=== PATIENT | female | born 1965 | race Caucasian/White ===

== ENCOUNTER 2016-04-02 16:20 | Emergency (ER) | payer BC, OTHER ==
[2016-04-02] MEDS ORDERED: IBUPROFEN 800 MG TAB As Ordered ONE (18:17)
--- NOTE | 2016-04-02 18:46 | REP ---
Lumbar spine five views: Comparison is 06/25/2015. Vertebral body heights and alignment are normal. There are no vertebral body compression deformities. Disc spaces are unremarkable. 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 There is no spondylolysis or spondylolisthesis. The pedicles, facets and sacroiliac articulations are unremarkable. Impression: Essentially negative lumbar spine. Signed by Delmer Gonzalez MD 04/02/2016 06:37 P
[2016-04-02] MEDS ORDERED: NORCO 5/325MG TABLET (BULK) As Ordered ONE (19:11)
[2016-04-02] MEDS ORDERED: METHOCARBAMOL 500 MG TAB As Ordered ONE (19:12)
--- NOTE | 2016-04-02 19:28 | EDDOCDS ---
Nurse's Notes [facility] Name: Pauline Guerra Age: 50 yrs Sex: Female : 1965 Arrival Date: 04/02/2016 Time: 16:20 Bed PR1 / Private MD: Sher - Complete Info On Cds Diagnosis: Strain of muscle, fascia and tendon of lower back Presentation: 04/02 16:28 Presenting complaint: Patient states: Shooting pain down both legs since this weekend. ck1 No known injury. Adult Sepsis Screening: The patient does not have new or worsening altered mentation. Patient's respiratory rate is less than 22. Systolic blood pressure is greater than 100. Patient has a qSOFA score of 0- Negative Sepsis Screen. Suicide/Homicide risk assessment- the patient denies having any suicidal and/or homicidal ideations and does not present with any other emotional, behavioral or mental health complaints. Status: Patient is not a senior administrative services officer or dependent. Transition of care: patient was not received from another setting of care. 16:28 Acuity: NAMITA Level 4 ck1 16:28 Method Of Arrival: Walkin/Carried/Asstd ck1 Triage Assessment: 16:30 General: Appears in no apparent distress, comfortable, Behavior is appropriate for age, ck1 cooperative. Pain: Location: right leg and left leg Pain currently is 9 out of 10 on a pain scale. HIV screening NA for this visit Offered previously. Respiratory: Respiratory effort is unlabored, Respiratory pattern is regular, symmetrical. Derm: Skin is intact, is healthy with good turgor, Skin is pink, warm & dry. Musculoskeletal: Circulation, motion, and sensation intact Range of motion intact in all extremities. 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 levothyroxine 175 mcg Oral tab 1 tab once daily - PMHx: Hypothyroidism; - PSHx: Cesearean Section; - Social history: Smoking status: Patient uses tobacco products, heavy tobacco smoker. No barriers to communication noted, The patient speaks fluent Armenian, Speaks appropriately for age. - Family history: Not pertinent. - : The pt / caregiver states he / she is not on anticoagulants. Home medication list is obtained from the patient. - Exposure Risk Screening:: None identified. Screenin:21 Screening information is obtained from the patient. Fall risk: No risks identified. mlb1 Assistance ADL's: requires no assistance with activities of daily living. Abuse/DV Screen: The patient / caregiver reports he/she is: not in a situation that causes fear, pain or injury. Nutritional screening: No deficits noted. Advance Directives: Currently, there is no health care proxy. home support is adequate. Assessment: 18:20 General: Appears in no apparent distress, comfortable, Behavior is appropriate for age, mlb1 cooperative. Pain: Location: left leg and right leg Pain currently is 8 out of 10 on a pain scale. Neurological: Level of Consciousness is awake, alert, obeys commands. Respiratory: Respiratory effort is unlabored, Respiratory pattern is regular, symmetrical. Derm: Skin is intact, is healthy with good turgor, Skin is pink, warm & dry. Musculoskeletal: Circulation, motion, and sensation intact Range of motion intact in all extremities. 19:23 General: Appears in no apparent distress, comfortable, Behavior is appropriate for age, cjh cooperative. General: reviewed discharge instructions with patient who denies new problems or complaints and declines offer of further assistance. Pain: Location: right leg and left leg Pain currently is 8 out of 10 on a pain scale. Vital Signs: 16:21 BP 162 / 87; Pulse 98; Resp 18 S; Temp 98.0(O); Pulse Ox 99% on R/A; Weight 81.65 kg gr2 (R); Height 5 ft. 1 in. (154.94 cm) (R); Pain 8/10; 19:23 BP 143 / 72; Pulse 85; Resp 16; Temp 98.6; Pulse Ox 96% ; Pain 9/10; cjh 16:21 Body Mass Index 34.01 (81.65 kg, 154.94 cm) gr2 Vitals: 16:21 Log In Time: April 02, 2016 at 16:21. gr2 ED Course: 16:21 Patient visited by Du Celaya. gr2 16:21 Other - Complete Info On Cds is Private Physician. gr2 16:21 Patient moved to Waiting gr2 16:22 Patient visited by Du Celaya. gr2 16:22 Patient moved to Pre RCE gr2 16:29 Triage Initiated ck1 16:58 Patient moved to Triage 1 ck1 17:12 Fabio Kline PA is PHCP. mo1 17:13 Kd Wilson MD is Attending Physician. mo1 18:04 Patient visited by Rachana Vaughan,BENNY. ck1 18:12 Patient visited by Fabio Kline PA. mo1 18:20 Patient visited by Fabio Reddy RN. mlb1 18:20 No IV's were initiated during this patient's visit. No procedures done that require mlb1 assistance. 18:21 The patient / caregiver is instructed regarding the plan of care and ED course. mlb1 18:21 Patient moved to TR1 mlb1 18:24 Patient name changed from Pauline\S\H\S\Charlie\S\ to Pauline\S\ \S\Charlie. EDTX 18:27 [facility] Payment Agreement was scanned into [employer] and attached to record. gjb 19:05 Patient moved to PR1 / 25 rs6 Administered Medications: 18:20 Drug: Ibuprofen 800 mg [ibuprofen 800 mg tablet (1 tabs)] Route: PO; [facility] 19:27 Follow up: Response: No Adverse Reaction; No significant change. [facility] 19:22 Drug: Methocarbamol 1 grams [methocarbamol 500 mg tablet (2 tabs)] Route: PO; [facility] 19:27 Follow up: Response: Med's dispensed home [facility] 19:23 Drug: HYDROcodone-acetaminophen 4 pack- 1 packets [hydrocodone 5 mg-acetaminophen 325 cjh mg tablet (1 tabs)] {Co-Signature: [email or web address] (Holly Crystal RN).} Route: PO; 19:27 Follow up: Response: Confirmed pt not driving.; Pt left department before re-evaluation [facility] is appropriate Order Results: There are currently no results for this order. Outcome: 19:03 Discharge ordered by Provider. mo1 19:23 Discharge Assessment: Patient awake, alert and oriented x 3. No cognitive and/or [facility] functional deficits noted. Patient verbalized understanding of disposition instructions. patient administered narcotics - yes. Pt provided with safe discharge. The following High Risk Discharge criteria are identified: None. Discharged to home ambulatory. Condition: good Condition: stable Condition: improved. Discharge instructions given to patient, Instructed on discharge instructions, follow up and referral plans. medication usage, no driving heavy equipment, Demonstrated understanding of instructions, medications, Pt was receptive of discharge instructions/ teaching. Prescriptions given X 2. No special radiology studies were completed. Property :Personal belongings accompany Pt. 19:28 Patient left the ED. [facility] Signatures: Dispatcher [employer] EDMS Fabio Reddy RN RN mlb1 Rachana VaughanRN RN ck1 Jolanta SchneiderRN RN [facility] Du Celaya gr2 Fabio Kline PA PA mo1 Schmitt, Rebecca, JORDAN HOTEL YARDPERSON rs6 Silvia Hassanb Holly Crystal RN jo3 MTDD
--- NOTE | 2016-04-02 19:28 | EDDOCDS ---
Physician Documentation [facility] Name: Pauline Guerra Age: 50 yrs Sex: Female : 1965 Arrival Date: 04/02/2016 Time: 16:20 Bed PR Private MD: Other - Complete Info On Cds Disposition: 04/02/16 19:03 Discharged to Home/Self Care. Impression: Strain of muscle, fascia and tendon of lower back. - Condition is Stable. - Discharge Instructions: Back Pain, Adult, Muscle Strain. - Prescriptions for Ibuprofen 800 mg Oral Tablet - take 1 tablet by ORAL route every 8 hours As needed take with food; 30 tablet. Robaxin 500 mg Oral Tablet - take 2 tablet by ORAL route every 6 hours As needed; 40 tablet. - Work Release Form - 3 day, Medication Reconciliation, Local Pharmacy Hours form. - Follow up: Private Physician; When: Call to arrange an appointment; Reason: Recheck today's complaints, Continuance of care. - Problem is new. - Symptoms are unchanged. Historical: - Allergies: PENICILLINS; - Home Meds: 1. levothyroxine 175 mcg Oral tab 1 tab once daily - PMHx: Hypothyroidism; - PSHx: Cesearean Section; - Social history: Smoking status: Patient uses tobacco products, heavy tobacco smoker. No barriers to communication noted, The patient speaks fluent Mexican, Speaks appropriately for age. - Family history: Not pertinent. - : The pt / caregiver states he / she is not on anticoagulants. Home medication list is obtained from the patient. - Exposure Risk Screening:: None identified. 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 1 in. (154.94 cm) (R); Pain 8/10; 19:23 BP 143 / 72; Pulse 85; Resp 16; Temp 98.6; Pulse Ox 96% ; Pain 9/10; cjh 16:21 Body Mass Index 34.01 (81.65 kg, 154.94 cm) gr2 MDM: 18:12 Ibuprofen 800 mg PO once ordered. mo1 18:13 Spine. Lumbosacral, Complete Ordered. EDHI 18:27 [facility] Payment Agreement was scanned into [employer] and attached to record. [facility] 18: Financial registration complete. gj 19:04 HYDROcodone-acetaminophen 4 pack- 5 mg-325 mg 1 packets PO Per package directions; mo1 Dispense with patient. 1 po q4h prn for pain ordered. 19:04 Methocarbamol 1 grams PO once; please give to go home ordered. mo1 Administered Medications: 18:20 Drug: Ibuprofen 800 mg [ibuprofen 800 mg tablet (1 tabs)] Route: PO; ml 19:27 Follow up: Response: No Adverse Reaction; No significant change. [facility] 19:22 Drug: Methocarbamol 1 grams [methocarbamol 500 mg tablet (2 tabs)] Route: PO; [facility] 19:27 Follow up: Response: Med's dispensed home [facility] 19:23 Drug: HYDROcodone-acetaminophen 4 pack- 1 packets [hydrocodone 5 mg-acetaminophen 325 cjh mg tablet (1 tabs)] {Co-Signature: [email or web address] (Holly Crystal RN).} Route: PO; 19:27 Follow up: Response: Confirmed pt not driving.; Pt left department before re-evaluation [facility] is appropriate Signatures: Dispatcher [facility] Fabio Reddy RN RN mlb1 Rachana VaughanRN RN ck1 Jolanta Schneider RN RN [facility] Fabio Kline PA PA mo1 Silvia Hassan [facility] Holly verdin3 The chart was reviewed and I authenticate all verbal orders and agree with the evaluation and treatment provided.Attachments: 18:27 [facility] Payment Agreement [facility] MTDD
--- NOTE | 2016-04-04 20:28 | EDDOCDS ---
Physician Documentation [facility] Name: Pauline Guerra Age: 50 yrs Sex: Female : 1965 Arrival Date: 04/02/2016 Time: 16:20 Bed PR Private MD: Other - Complete Info On Cds Disposition: 04/02/16 19:03 Discharged to Home/Self Care. Impression: Strain of muscle, fascia and tendon of lower back. - Condition is Stable. - Discharge Instructions: Back Pain, Adult, Muscle Strain. - Prescriptions for Ibuprofen 800 mg Oral Tablet - take 1 tablet by ORAL route every 8 hours As needed take with food; 30 tablet. Robaxin 500 mg Oral Tablet - take 2 tablet by ORAL route every 6 hours As needed; 40 tablet. - Work Release Form - 3 day, Medication Reconciliation, Local Pharmacy Hours form. - Follow up: Private Physician; When: Call to arrange an appointment; Reason: Recheck today's complaints, Continuance of care. - Problem is new. - Symptoms are unchanged. Historical: - Allergies: PENICILLINS; - Home Meds: 1. levothyroxine 175 mcg Oral tab 1 tab once daily - PMHx: Hypothyroidism; - PSHx: Cesearean Section; - Social history: Smoking status: Patient uses tobacco products, heavy tobacco smoker. No barriers to communication noted, The patient speaks fluent Ukrainian, Speaks appropriately for age. - Family history: Not pertinent. - : The pt / caregiver states he / she is not on anticoagulants. Home medication list is obtained from the patient. - Exposure Risk Screening:: None identified. 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 1 in. (154.94 cm) (R); Pain 8/10; 19:23 BP 143 / 72; Pulse 85; Resp 16; Temp 98.6; Pulse Ox 96% ; Pain 9/10; cjh 16:21 Body Mass Index 34.01 (81.65 kg, 154.94 cm) gr2 MDM: 18:12 Ibuprofen 800 mg PO once ordered. mo1 18:13 Spine. Lumbosacral, Complete Ordered. EDVT 18:27 [facility] Payment Agreement was scanned into [employer] and attached to record. [facility] 18: Financial registration complete. gjb 19:04 HYDROcodone-acetaminophen 4 pack- 5 mg-325 mg 1 packets PO Per package directions; mo1 Dispense with patient. 1 po q4h prn for pain ordered. 19:04 Methocarbamol 1 grams PO once; please give to go home ordered. mo1 04/03 11:24 T-Sheet-- Draft Copy was scanned into [employer] and attached to record. gb Administered Medications: 04/02 18:20 Drug: Ibuprofen 800 mg [ibuprofen 800 mg tablet (1 tabs)] Route: PO; [facility] 19:27 Follow up: Response: No Adverse Reaction; No significant change. [facility] 19:22 Drug: Methocarbamol 1 grams [methocarbamol 500 mg tablet (2 tabs)] Route: PO; [facility] 19:27 Follow up: Response: Med's dispensed home [facility] 19:23 Drug: HYDROcodone-acetaminophen 4 pack- 1 packets [hydrocodone 5 mg-acetaminophen 325 cjh mg tablet (1 tabs)] {Co-Signature: [email or web address] (Holly Crystal RN).} Route: PO; 19:27 Follow up: Response: Confirmed pt not driving.; Pt left department before re-evaluation [facility] is appropriate Signatures: Dispatcher [employer] EDVT Trinidad Garcia, Reg Reg Fabio Reddy RN RN mlb1 Rachana VaughanRN RN ck1 Jolanta SchneiderRN RN [facility] Fabio Kline PA PA mo1 Silvia Hassan [facility] Holly Crystal RN jo3 The chart was reviewed and I authenticate all verbal orders and agree with the evaluation and treatment provided.Attachments: 18:27 [facility] Payment Agreement [facility] 04/03 11:24 T-Sheet-- Draft Copy Chart Complete MTDD
--- NOTE | 2016-04-04 20:28 | EDDOCDS ---
Physician Documentation [facility] Name: Pauline Guerra Age: 50 yrs Sex: Female : 1965 Arrival Date: 04/02/2016 Time: 16:20 Bed PR Private MD: Other - Complete Info On Cds Disposition: 04/02/16 19:03 Discharged to Home/Self Care. Impression: Strain of muscle, fascia and tendon of lower back. - Condition is Stable. - Discharge Instructions: Back Pain, Adult, Muscle Strain. - Prescriptions for Ibuprofen 800 mg Oral Tablet - take 1 tablet by ORAL route every 8 hours As needed take with food; 30 tablet. Robaxin 500 mg Oral Tablet - take 2 tablet by ORAL route every 6 hours As needed; 40 tablet. - Work Release Form - 3 day, Medication Reconciliation, Local Pharmacy Hours form. - Follow up: Private Physician; When: Call to arrange an appointment; Reason: Recheck today's complaints, Continuance of care. - Problem is new. - Symptoms are unchanged. Historical: - Allergies: PENICILLINS; - Home Meds: 1. levothyroxine 175 mcg Oral tab 1 tab once daily - PMHx: Hypothyroidism; - PSHx: Cesearean Section; - Social history: Smoking status: Patient uses tobacco products, heavy tobacco smoker. No barriers to communication noted, The patient speaks fluent Ecuadorean, Speaks appropriately for age. - Family history: Not pertinent. - : The pt / caregiver states he / she is not on anticoagulants. Home medication list is obtained from the patient. - Exposure Risk Screening:: None identified. 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 1 in. (154.94 cm) (R); Pain 8/10; 19:23 BP 143 / 72; Pulse 85; Resp 16; Temp 98.6; Pulse Ox 96% ; Pain 9/10; cjh 16:21 Body Mass Index 34.01 (81.65 kg, 154.94 cm) gr2 MDM: 18:12 Ibuprofen 800 mg PO once ordered. mo1 18:13 Spine. Lumbosacral, Complete Ordered. EDIL 18:27 [facility] Payment Agreement was scanned into [employer] and attached to record. [facility] 18: Financial registration complete. gjb 19:04 HYDROcodone-acetaminophen 4 pack- 5 mg-325 mg 1 packets PO Per package directions; mo1 Dispense with patient. 1 po q4h prn for pain ordered. 19:04 Methocarbamol 1 grams PO once; please give to go home ordered. mo1 04/03 11:24 T-Sheet-- Draft Copy was scanned into [employer] and attached to record. gb Administered Medications: 04/02 18:20 Drug: Ibuprofen 800 mg [ibuprofen 800 mg tablet (1 tabs)] Route: PO; [facility] 19:27 Follow up: Response: No Adverse Reaction; No significant change. [facility] 19:22 Drug: Methocarbamol 1 grams [methocarbamol 500 mg tablet (2 tabs)] Route: PO; [facility] 19:27 Follow up: Response: Med's dispensed home [facility] 19:23 Drug: HYDROcodone-acetaminophen 4 pack- 1 packets [hydrocodone 5 mg-acetaminophen 325 cjh mg tablet (1 tabs)] {Co-Signature: [email or web address] (Holly Crystal RN).} Route: PO; 19:27 Follow up: Response: Confirmed pt not driving.; Pt left department before re-evaluation [facility] is appropriate Signatures: Dispatcher [employer] EDIL Trinidad Garcia, Reg Reg Fabio Reddy RN RN mlb1 Rachana VaughanRN RN ck1 Jolanta SchneiderRN RN [facility] Fabio Kline PA PA mo1 Silvia Hassan [facility] Holly Crystal RN jo3 The chart was reviewed and I authenticate all verbal orders and agree with the evaluation and treatment provided.Attachments: 18:27 [facility] Payment Agreement [facility] 04/03 11:24 T-Sheet-- Draft Copy Chart Complete MTDD
--- NOTE | 2016-04-04 20:28 | EDDOCDS ---
Nurse's Notes [facility] Name: Pauline Guerra Age: 50 yrs Sex: Female : 1965 Arrival Date: 04/02/2016 Time: 16:20 Bed PR1 / Private MD: Sher - Complete Info On Cds Diagnosis: Strain of muscle, fascia and tendon of lower back Presentation: 04/02 16:28 Presenting complaint: Patient states: Shooting pain down both legs since this weekend. ck1 No known injury. Adult Sepsis Screening: The patient does not have new or worsening altered mentation. Patient's respiratory rate is less than 22. Systolic blood pressure is greater than 100. Patient has a qSOFA score of 0- Negative Sepsis Screen. Suicide/Homicide risk assessment- the patient denies having any suicidal and/or homicidal ideations and does not present with any other emotional, behavioral or mental health complaints. Status: Patient is not a produce service team member or dependent. Transition of care: patient was not received from another setting of care. 16:28 Acuity: NAMITA Level 4 ck1 16:28 Method Of Arrival: Walkin/Carried/Asstd ck1 Triage Assessment: 16:30 General: Appears in no apparent distress, comfortable, Behavior is appropriate for age, ck1 cooperative. Pain: Location: right leg and left leg Pain currently is 9 out of 10 on a pain scale. HIV screening NA for this visit Offered previously. Respiratory: Respiratory effort is unlabored, Respiratory pattern is regular, symmetrical. Derm: Skin is intact, is healthy with good turgor, Skin is pink, warm & dry. Musculoskeletal: Circulation, motion, and sensation intact Range of motion intact in all extremities. INVESTMENT REPRESENTATIVE: 16:30 LMP N/A - Post-menopause ck1 Historical: - Allergies: PENICILLINS; - Home Meds: 1. levothyroxine 175 mcg Oral tab 1 tab once daily - PMHx: Hypothyroidism; - PSHx: Cesearean Section; - Social history: Smoking status: Patient uses tobacco products, heavy tobacco smoker. No barriers to communication noted, The patient speaks fluent Estonian, Speaks appropriately for age. - Family history: Not pertinent. - : The pt / caregiver states he / she is not on anticoagulants. Home medication list is obtained from the patient. - Exposure Risk Screening:: None identified. Screenin:21 Screening information is obtained from the patient. Fall risk: No risks identified. mlb1 Assistance ADL's: requires no assistance with activities of daily living. Abuse/DV Screen: The patient / caregiver reports he/she is: not in a situation that causes fear, pain or injury. Nutritional screening: No deficits noted. Advance Directives: Currently, there is no health care proxy. home support is adequate. Assessment: 18:20 General: Appears in no apparent distress, comfortable, Behavior is appropriate for age, mlb1 cooperative. Pain: Location: left leg and right leg Pain currently is 8 out of 10 on a pain scale. Neurological: Level of Consciousness is awake, alert, obeys commands. Respiratory: Respiratory effort is unlabored, Respiratory pattern is regular, symmetrical. Derm: Skin is intact, is healthy with good turgor, Skin is pink, warm & dry. Musculoskeletal: Circulation, motion, and sensation intact Range of motion intact in all extremities. 19:23 General: Appears in no apparent distress, comfortable, Behavior is appropriate for age, cjh cooperative. General: reviewed discharge instructions with patient who denies new problems or complaints and declines offer of further assistance. Pain: Location: right leg and left leg Pain currently is 8 out of 10 on a pain scale. Vital Signs: 16:21 BP 162 / 87; Pulse 98; Resp 18 S; Temp 98.0(O); Pulse Ox 99% on R/A; Weight 81.65 kg gr2 (R); Height 5 ft. 1 in. (154.94 cm) (R); Pain 8/10; 19:23 BP 143 / 72; Pulse 85; Resp 16; Temp 98.6; Pulse Ox 96% ; Pain 9/10; cjh 16:21 Body Mass Index 34.01 (81.65 kg, 154.94 cm) gr2 Vitals: 16:21 Log In Time: April 02, 2016 at 16:21. gr2 ED Course: 16:21 Patient visited by Du Celaya. gr2 16:21 Other - Complete Info On Cds is Private Physician. gr2 16:21 Patient moved to Waiting gr2 16:22 Patient visited by Du Celaya. gr2 16:22 Patient moved to Pre RCE gr2 16:29 Triage Initiated ck1 16:58 Patient moved to Triage 1 ck1 17:12 Fabio Kline PA is PHCP. mo1 17:13 Kd Wilson MD is Attending Physician. mo1 18:04 Patient visited by Rachana Vaughan,BENNY. ck1 18:12 Patient visited by Fabio Kline PA. mo1 18:20 Patient visited by Fabio Reddy, BENNY. mlb1 18:20 No IV's were initiated during this patient's visit. No procedures done that require mlb1 assistance. 18:21 The patient / caregiver is instructed regarding the plan of care and ED course. mlb1 18:21 Patient moved to TR1 mlb1 18:24 Patient name changed from Pauline\S\H\S\Charlie\S\ to Pauline\S\ \S\Charlie. EDMS 18:27 [facility] [place] Payment Agreement was scanned into [employer] and attached to record. gjb 19:05 Patient moved to PR1 / rs6 19:42 Spine. Lumbosacral, Complete Returned. EDMS 04/03 11:24 T-Sheet-- Draft Copy was scanned into [employer] and attached to record. gb Administered Medications: 04/02 18:20 Drug: Ibuprofen 800 mg [ibuprofen 800 mg tablet (1 tabs)] Route: PO; [facility] 19:27 Follow up: Response: No Adverse Reaction; No significant change. [facility] 19:22 Drug: Methocarbamol 1 grams [methocarbamol 500 mg tablet (2 tabs)] Route: PO; [facility] 19:27 Follow up: Response: Med's dispensed home [facility] 19:23 Drug: HYDROcodone-acetaminophen 4 pack- 1 packets [hydrocodone 5 mg-acetaminophen 325 cjh mg tablet (1 tabs)] {Co-Signature: jo3 (Holly Crystal RN).} Route: PO; 19:27 Follow up: Response: Confirmed pt not driving.; Pt left department before re-evaluation [facility] is appropriate Order Results: Radiology Order: Spine. Lumbosacral, Complete Test: Spine. Lumbosacral, Complete REASON FOR EXAMINATION: Trauma; Lumbar spine five views:; ; Comparison is 06/25/2015.; ; Vertebral body heights and alignment are normal. 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 mo1 19:23 Discharge Assessment: Patient awake, alert and oriented x 3. No cognitive and/or [facility] functional deficits noted. Patient verbalized understanding of disposition instructions. patient administered narcotics - yes. Pt provided with safe discharge. The following High Risk Discharge criteria are identified: None. Discharged to home ambulatory. Condition: good Condition: stable Condition: improved. Discharge instructions given to patient, Instructed on discharge instructions, follow up and referral plans. medication usage, no driving heavy equipment, Demonstrated understanding of instructions, medications, Pt was receptive of discharge instructions/ teaching. Prescriptions given X 2. No special radiology studies were completed. Property :Personal belongings accompany Pt. 19:28 Patient left the ED. [facility] Signatures: Dispatcher [employer] EDMS Trinidad Garcia, Reg Reg gb Fabio Reddy, RN RN mlb1 Rachana VaughanRN RN ck1 Jolanta SchneiderRN RN [facility] Du Celaya gr2 Fabio Kline PA PA mo1 Tonya Boyd, PRODUCT SUPPORT TECHNICIAN PRODUCT SUPPORT TECHNICIAN rs6 Silvia Hassan RN jo3 Chart Complete MTDD
== END 2016-04-02 19:28 | disposition home or self-care (01) ==
LOC: M ED 16:20
DX: M54.16 Radiculopathy, lumbar region (principal); S39.012A Strain of muscle, fascia and tendon of lower back, initial encounter; X58.XXXA Exposure to other specified factors, initial encounter; Y92.89 Other specified places as the place of occurrence of the external cause; Y93.89 Activity, other specified; Y99.8 Other external cause status; E03.9 Hypothyroidism, unspecified; F17.210 Nicotine dependence, cigarettes, uncomplicated; Z79.899 Other long term (current) drug therapy; Z88.0 Allergy status to penicillin

== ENCOUNTER → 2016-04-28 | Outpatient (CLI) | payer BC ==
[2016-04-28 16:59] LABS: BASO # 0.1 K/mm3 (0.0-0.2); BASO % 0.9 % (0.0-1.0); EOS # 0.2 K/mm3 (0.0-0.50); EOS % 1.8 % (0.0-3.0); LARGE UNSTAINED CELL # 0.3 K/mm3 (0.0-0.4); LYMPH # 2.1 K/mm3 (1.5-4.5); MEAN CORPUSCULAR HEMOGLOBIN 31.6 pg (27.0-33.0); MEAN CORPUSCULAR HGB CONC 33.7 g/dl (32.0-36.5); MEAN CORPUSCULAR VOLUME 93.7 fl (80.0-96.0); MONO % 9.3 % (0.0-5.0); NEUTROPHILS # 6.8 K/mm3 (1.8-7.7); PLATELET COUNT, AUTOMATED 373 k/mm3 (150-450); RED CELL DISTRIBUTION WIDTH 12.4 % (11.5-14.5); WHITE BLOOD COUNT 10.5 K/mm3 (4.0-10.0)
[2016-04-28 17:25] LABS: FOLATE 9.9 NG/ML (>5.4); VITAMIN B12 LEVEL 555 PG/ML (247-911)
[2016-04-28 18:13] LABS: ALBUMIN/GLOBULIN RATIO 1.18 (1.00-1.93); ALKALINE PHOSPHATASE 98 U/L (45-117); ALT/SGPT 27 U/L (12-78); ANION GAP 9 MEQ/L (8-16); AST/SGOT 25 U/L (15-37); BILIRUBIN,TOTAL 0.2 MG/DL (0.2-1.0); BLOOD UREA NITROGEN 13 MG/DL (7-18); CALCIUM LEVEL 8.8 MG/DL (8.5-10.1); CARBON DIOXIDE LEVEL 26 MEQ/L (21-32); CHLORIDE LEVEL 105 MEQ/L (98-107); GLOMERULAR FILTRATION RATE > 60.0 (>51); GLUCOSE, FASTING 122 MG/DL (70-105); POTASSIUM SERUM 3.9 MEQ/L (3.5-5.1); SODIUM LEVEL 140 MEQ/L (136-145); TOTAL PROTEIN 7.4 GM/DL (6.4-8.2)
[2016-04-28 20:20] LABS: ERYTHROCYTE SEDIMENTATION RATE 17 mm/hr (0-30)
[2016-04-29 11:22] LABS: ALBUMIN % 56.8 % (55.8-66.1); GAMMA GLOBULIN % 14.3 % (11.1-18.8)
[2016-05-02 08:09] LABS: VITAMIN E LEVEL 7.4 mg/L (5.3-16.8)
== END ==
LOC: M WUC 13:35
PROVIDERS: ATTEND Psychiatry & Neurology Neurology
DX: G62.9 Polyneuropathy, unspecified (principal)

== ENCOUNTER → 2016-05-03 | Outpatient (CLI) | payer BC ==
[2016-05-03 17:57] LABS: BASO # 0.1 K/mm3 (0.0-0.2); EOS # 0.4 K/mm3 (0.0-0.50); EOS % 3.8 % (0.0-3.0); LARGE UNSTAINED CELL # 0.2 K/mm3 (0.0-0.4); LARGE UNSTAINED CELL % 2.5 % (0.0-4.0); LYMPH # 2.5 K/mm3 (1.5-4.5); LYMPH % 24.4 % (24.0-44.0); MEAN CORPUSCULAR HEMOGLOBIN 31.7 pg (27.0-33.0); MEAN CORPUSCULAR HGB CONC 33.1 g/dl (32.0-36.5); MEAN CORPUSCULAR VOLUME 95.9 fl (80.0-96.0); MONO # 0.9 K/mm3 (0.0-0.8); MONO % 9.5 % (0.0-5.0); NEUTROPHILS # 5.6 K/mm3 (1.8-7.7); NEUTROPHILS % 58.7 % (36.0-66.0); PLATELET COUNT, AUTOMATED 370 k/mm3 (150-450); RED CELL DISTRIBUTION WIDTH 12.7 % (11.5-14.5); WHITE BLOOD COUNT 9.5 K/mm3 (4.0-10.0)
[2016-05-03 18:19] LABS: ALBUMIN 4.1 GM/DL (3.2-5.2); ALBUMIN/GLOBULIN RATIO 1.11 (1.00-1.93); ALKALINE PHOSPHATASE 89 U/L (45-117); ALT/SGPT 26 U/L (12-78); ANION GAP 12 MEQ/L (8-16); AST/SGOT 22 U/L (15-37); BILIRUBIN,TOTAL 0.5 MG/DL (0.2-1.0); BLOOD UREA NITROGEN 14 MG/DL (7-18); CARBON DIOXIDE LEVEL 24 MEQ/L (21-32); CHLORIDE LEVEL 107 MEQ/L (98-107); CHOLESTEROL LEVEL 240 MG/DL (<200); CREATININE FOR GFR 0.85 MG/DL (0.55-1.02); GLOMERULAR FILTRATION RATE > 60.0 (>51); GLUCOSE, FASTING 107 MG/DL (70-105); SODIUM LEVEL 143 MEQ/L (136-145); TOTAL PROTEIN 7.8 GM/DL (6.4-8.2); TRIGLYCERIDES LEVEL 204 MG/DL (<150)
== END ==
LOC: M WUC 11:41
PROVIDERS: ATTEND Physician Assistant Medical
DX: E78.2 Mixed hyperlipidemia (principal); E89.0 Postprocedural hypothyroidism; E55.9 Vitamin D deficiency, unspecified; E66.01 Morbid (severe) obesity due to excess calories

== ENCOUNTER → 2016-06-12 | Outpatient (CLI) | payer BC ==
--- NOTE | 2016-06-12 18:24 | REP ---
Clinical: Hip pain. Technique: Neutral and frog lateral views of the left hip. Findings: Moderate arthritic degenerative changes include increased sclerosis to the acetabulum with marginal spurring and associated joint space narrowing. There is subtle spurring suggested along the anteroinferior margin of the femoral head as well. There is no evidence for acute fracture or dislocation. Impression: Moderate arthritic degenerative changes. Signed by Jax Montoya MD 06/12/2016 06:17 P
== END ==
LOC: M WUC 17:35
PROVIDERS: ATTEND Psychiatry & Neurology Neurology
DX: M16.11 Unilateral primary osteoarthritis, right hip (principal)

== ENCOUNTER → 2016-07-08 | Outpatient (CLI) | payer BC ==
--- NOTE | 2016-07-18 00:11 | ECWPNPC ---
PATIENT NAME: NETTA MARC : 1965 GENDER: FEMALE VISIT DATE: 07/08/2016 DISCHARGE DATE: 07/08/16 1624 VISIT LOCKED DATE TIME: PHYSICIAN: MOHINI TANNER RESOURCE: MOHINI TANNER REASON FOR APPOINTMENT 1. HIP/LEG HISTORY OF PRESENT ILLNESS NEW PATIENT CONSULT: 51 Y/O FEMALE HERE PER REFERRAL OF CHACHO GALLARDO PA-C TO EVALUATE PERSISTENT RIGHT KNEE PAIN AND LOW BACK PAIN.PAIN BEGAN 2 YEARS AGO AFTER RIGHT KNEE OA AUGUST 2014.HAS TRIALED PT,INJECTIONS INTO RIGHT KNEE WITHOUT IMPROVEMENT.LEFT LEG PAIN BEGAN IN JANUARY 2016.RATING PAIN VAS 7/10..PAIN IS DESCRIBED CONSTANT THROBBING,ACHING AND SORENESS .PAIN IS AGGREVATED BY PROLONGED WALKING OR SITTING.RELIEVED SOMEWHAT AT REST AND IBUPROFEN.PAIN IS LOWER EXTREMITIES AND IS DESCRIBED CONSTANT ACHING AND THROBBING.FINDS IT DIFFICULT TO DO HER JOB.DENIES BOWELOR BLADDER INCONTINENCE.NO RECENT FEVER ,ILLNESS OR WEIGHT LOSS. WHEN DID YOUR PAIN FIRST START? . BRIEFLY DESCRIBE HOW YOUR PAIN STARTED? . HOW DOES YOUR PAIN CHANGE WITH TIME? . DOES YOUR PAIN AWAKEN YOU FROM SLEEP? . HOW MANY HOURS OF SLEEP DO YOU NORMALLY GET? . ANY DIAGNOSTIC TESTING? . FACILITY WHERE TESTS WERE DONE? ____. PAIN TREATMENT TREATMENT YES CANCER HAVE YOU EVER HAD ANY TYPE OF CANCER?NO NO. PAIN SCREENING: PATIENT HAS A COMPLAINT OF ACUTE OR CHRONIC PAIN :YES FALL RISK SCREENING: SCREENING :NO FALLS IN THE PAST YEAR NAVARRETE INVENTORY: QUESTIONNAIRE ASSESSEDTBD SCORE VALUE CALCULATED TBD CURRENT MEDICATIONS TAKING TYLENOL 650 MG TABLET 2 TABLET NEEDED ORALLY EVERY 6 HRS TAKING GABAPENTIN 300 MG CAPSULE 1 CAPSULE ORALLY THREE TIMES A DAY TAKING LEVOTHYROXINE SODIUM 200 MCG TABLET 1 TAB ORALLY DAILY TAKING IBUPROFEN 800 MG TABLET 1 TABLET ORALLY THREE TIMES A DAY NOT-TAKING MELOXICAM 15 MG TABLET 1 TABLET ORALLY ONCE A DAY, NOTES: NEEDED NOT-TAKING VICODIN 5-300 MG TABLET 1 TABLET NEEDED ORALLY EVERY 6 HRS NOT-TAKING ROBAXIN 500 MG TABLET 2 TABLETS ORALLY EVERY 6 HRS MEDICATION LIST REVIEWED AND RECONCILED WITH THE PATIENT PAST MEDICAL HISTORY GRAVE'S DISEASE WITH IODINE THERAPY, [address] URIOSTEGUI G4, 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11-20 HOW OFTEN DO YOU SMOKE CIGARETTES?EVERY DAY PATIENT COUNSELED ON THE DANGERS OF TOBACCO USE AND URGED TO QUIT:07/08/2016 ARE YOU INTERESTED IN QUITTING?NOT READY TO QUIT COUNSELED THE PATIENT ON SMOKING EFFECTS, EDUCATION [id number]/25/2017 ALCOHOL SCREENING POINTS0 INTERPRETATIONNEGATIVE CAFFEINE CAFFEINE USE?YES HOW OFTEN AND HOW MUCH? DAILY [place]AIN DEW 2-3 PER DAY DIET: REGULAR. FAITH [id number] NONDENOMINATIONAL LEARNING BARRIERS / SPECIAL NEEDS BARRIERS TO LEARNING?NO HEARING IMPAIRED?NO VISION IMPAIRED?YES :CORRECTIVE LENSES COGNITIVELY IMPAIRED?NO READINESS TO LEARN?YES LEARNING PREFERENCES?NO SPECIAL DEVICES?NO ENVIRONMENTAL MANAGEMENT SPECIALIST NEEDED?NO MISCELLANEOUS: NO FAITH BARRIERS . MEDICATION ABUSE NO FAITH BARRIERS . PAIN CLINIC PFS, CLERGY, PUBLIC HEALTH REFERRALS CLERGY REFERRAL NEEDED?NO WAS THE PROVIDER NOTIFIED OF ANY PERTINENT INFO?NO PFS REFERRAL NEEDED?NO PUBLIC HEALTH REFERRAL NEEDED?NO PATIENT: ____. HOSPITALIZATION/MAJOR DIAGNOSTIC PROCEDURE SEE ABOVE REVIEW OF SYSTEMS CONSTITUTIONAL: ANY CHANGE IN YOUR MEDICAL CONDITION? KNEE HAS NOT BEEN RIGHT SINCE HER SURGURY . CHILLS NO . FEVER NO . INFECTION: DO YOU HAVE NEW INFECTIONS? NO . DO YOU HAVE HISTORY OF MRSA? NO . MUSCULOSKELETAL: ANY NEW PATTERNS OF PAIN OR NUMBNESS? NO . SYTEMIC LUPUS NO . GASTROENTEROLOGY: ANY NEW CHANGE IN BOWEL CONTROL? YES, PILLS MAKE HER CONSTIPATED . BARRETTS ESOPHAGUS NO . CIRRHOSIS NO . HEPATITIS NO . LIVER FAILURE NO . ACID REFLUX NO . UNEXPLAINED WEIGHT LOSS NO . GENITOURINARY: ANY NEW CHANGE IN BLADDER CONTROL? NO . IS THERE A CHANCE YOU COULD BE ? NO . HEMATOLOGY/LYMPH: DO YOU TAKE ANY BLOOD THINNERS? (FOR EXAMPLE- COUMADIN, PLAVIX, AGGRENOX, PLATEL, PRADAXA, OR XARELTO) NO . WHEN WAS YOUR LAST DOSE? DATE: TIME: . LOW PLATELET COUNT NO . SICKLE CELL DISEASE NO . VON WILLIEBRANDS NO . FACTOR V LEIDEN NO . THALLASEMIA NO . ANEMIA NO . EASY BRUISING NO . NEUROLOGY: HAVE YOU FALLEN IN THE PAST 6 MONTHS? NO . ANY NEW EXTREMITY NUMBNESS OR WEAKNESS? NO . HEAD INJURY NO . DEMENTIA NO . CEREBRAL PALSY NO . MULTIPLE SCLEROSIS NO . DIZZINESS NO . HEADACHE NO . STROKES NO . VERTIGO NO . CARDIOLOGY: DO YOU HAVE A PACEMAKER OR DEFIBRILLATOR? NO . ANGINA NO . HEART ATTACK NO . HEART SURGERY NO . CONGESTIVE HEART FAILURE/FLUID OVERLOAD NO . CHEST PAIN NO . HIGH BLOOD PRESSURE NO . IRREGULAR HEART BEAT NO . RESPIRATORY: HAVE YOU BEEN SICK IN THE PAST WEEK? NO . FEVER NO . FLU LIKE SYMPTOMS? NO . CPAP NO . BYPAP NO . ASTHMA NO . EMPHYSEMA NO . CHRONIC LUNG DISEASES NO . SHORTNESS OF BREATH ON EXERTION NO . DO YOU USE ANY TYPE OF TOBACCO (SMOKE, SMOKELESS, CHEW)? NO . COUGH NO . SNORING NO . INTEGUMENTARY: DO YOU HAVE ANY RASHES OR OPEN SORES? NO . ALLERGIC/IMMUNO: ARE YOU ALLERGIC TO SHELLFISH OR IV DYE? NO . ANY NEW ALLERGIES? NO . PSYCHIATRIC: DO YOU HAVE THOUGHTS OF HURTING YOURSELF OR SOMEONE ELSE? NO . ARE YOU ABUSED, NEGLECTED, OR IN AN UNSAFE ENVIRONMENT? NO . ENDOCRINOLOGY: ARE YOU DIABETIC? NO . THYROID DISORDER NO . OTHER: DO YOU NEED ANY PRESCRIPTIONS? NO . IF YES, PLEASE LIST: ____ . ANY NEW PROBLEMS WITH YOUR MEDICATIONS? NO . WHEN DID YOU LAST EAT? ____ . WHEN DID YOU LAST DRINK? ____ . WHAT DID YOU LAST DRINK? ____ . NAME OF PERSON DRIVING YOU HOME? ____ . DO YOU HAVE ANY OTHER QUESTIONS OR CONCERNS NO . REVIEWED BY: PROVIDER: MOHINI CONKLIN . VITAL SIGNS WT 211 LBS, HT 60 IN, BMI 41.20 INDEX, BP 116/64 MM HG, HR 84 /MIN, RR 18 /MIN, TEMP 98 F,6 F, OXYGEN SAT % 94, SAFE IN ENV? (Y/N) YES, NA INITIALS KG 1500. EXAMINATION GENERAL EXAMINATION: GENERAL APPEARANCE:OBESE, UNCOMFORTABLE. PSYCHAFFECT NORMAL. LUNGS:LUNG VALDES ARE CLEAR TO AUSCULTATION BILATERALLY. GOOD MOVEMENT OF AIR. HEART:S1, S2 IN A REGULAR RATE AND RHYTHM. NO SIGNIFICANT MURMURS, RUBS OR GALLOPS NOTED. ABDOMEN:SOFT, NON-TENDER/NON-DISTENDED, BOWEL SOUNDS PRESENT. LUMBAR SPINE/LOWER BACK: INSPECTION:NORMAL CURVATURE OF SPINE. PALPATION:VERTEBRAL SPINE TENDERNESS, PARASPINAL TENDERNESS. MOTOR SYSTEM:5/5 BLE. SENSORY EXAM:NORMAL BILATERAL LE. ASSESSMENTS DISC DISPLACEMENT, LUMBAR - M51.26 (PRIMARY) LUMBAR RADICULITIS - M54.16 CHRONIC PRESCRIPTION OPIATE USE - Z79.891 TREATMENT DISC DISPLACEMENT, LUMBAR START NORCO TABLET, 5-325 MG, 1, ORALLY, EVERY 6 HRS PRN PAIN MDD4, 30 DAY(S), 45, REFILLS 0 START COLACE CAPSULE, 100 MG, 1-2, ORALLY, BID, 30 DAY(S), 120, REFILLS 0 CAUDAL/LUMBAR EPIDURALMOHNII TANNER 07/08/2016 4:11:56 PM > L3/4 LESI OTHERS NOTES: WHAT IS LUMBAR EPIDURAL INJECTION? MATERIAL WAS PRINTED,LUMBAR EPIDURAL INJECTION: YOUR PROCEDURE MATERIAL WAS PRINTED. PREVENTIVE MEDICINE DISCUSSED LE AND PREPROCEDURE CARE.DISCUSSED NARCOTIC AGREEMENT AND SIGNEDGAVE INFO ON COLACE AND NORCO. PROCEDURE CODES FA211 ESTABILISHED PATIENT [facility] FACILITY CHARGE DISPOSITION & COMMUNICATION FOLLOW UP 2WK POST (REASON: L3/4 LESI) ELECTRONICALLY SIGNED BY RUBIN NUNEZ ON 07/17/2016 AT 06:28 PM EDT DISCLAIMER : THIS IS A VISIT SUMMARY EXTRACTED FROM THE [employer] CHART. IT IS NOT A COPY OF THE [employer] PROGRESS NOTE. [facility]
== END ==
LOC: M PAIN 15:20
PROVIDERS: ATTEND Nurse Practitioner Family
DX: G89.29 Other chronic pain (principal); M51.26 Other intervertebral disc displacement, lumbar region; M54.16 Radiculopathy, lumbar region; E03.9 Hypothyroidism, unspecified; F17.210 Nicotine dependence, cigarettes, uncomplicated; E66.01 Morbid (severe) obesity due to excess calories; Z68.41 Body mass index [BMI] 40.0-44.9, adult; E78.2 Mixed hyperlipidemia; E55.9 Vitamin D deficiency, unspecified; I44.0 Atrioventricular block, first degree; Z88.0 Allergy status to penicillin; Z79.1 Long term (current) use of non-steroidal anti-inflammatories (NSAID); Z79.899 Other long term (current) drug therapy

== ENCOUNTER → 2016-08-22 | Outpatient (REF) | payer BC | LOC: M SFHCADAM 14:32 | PROVIDERS: ATTEND Physician Assistant Medical | DX: E89.0 Postprocedural hypothyroidism (principal) ==

== ENCOUNTER → 2016-09-11 | Outpatient (CLI) | payer BC ==
--- NOTE | 2016-09-26 00:56 | ECWPNPC ---
PATIENT NAME: NETTA MARC : 1965 GENDER: FEMALE VISIT DATE: 09/11/2016 DISCHARGE DATE: 09/11/16 1553 VISIT LOCKED DATE TIME: PHYSICIAN: MOHINI TANNER RESOURCE: MOHINI TANNER REASON FOR APPOINTMENT 1. LEGS HISTORY OF PRESENT ILLNESS HISTORY OF PRESENT ILLNESS: HERE FOR F/U AFTER INITIAL EVALUATION IN JUNE FOR CHRONIC LOW BACK PAIN AND BILATERAL LEG PAIN.HAS NOT HAD LESI PLANNED AT LAST VISIT SHE SAID SHE WASNT NOTIFIED OF INSURANCE APPROVAL FROM OUR OFFICE.USING HYDROCODONE 5/325 PRN FOR SEVERE PAIN AND IS FINDING IT HELPFUL.STATES SHE IS BETTER ABLE TO TOLERATE HER JOB AND IS HAVING IMPROVED SLEEP.DENIES SIDE EFFECTS.RATING PAIN VAS 8/10. PAIN THE PATIENT DESCRIBES THE PAIN... FALL RISK SCREENING: SCREENING :NO FALLS IN THE PAST YEAR CURRENT MEDICATIONS TAKING GABAPENTIN 300 MG CAPSULE 1 CAPSULE ORALLY THREE TIMES A DAY TAKING LEVOTHYROXINE SODIUM 200 MCG TABLET 1 TAB ORALLY DAILY TAKING IBUPROFEN 800 MG TABLET 1 TABLET ORALLY THREE TIMES A DAY TAKING COLACE 100 MG CAPSULE 1-2 ORALLY BID TAKING NORCO 5-325 MG TABLET 1 ORALLY EVERY 6 HRS PRN PAIN MDD4 NOT-TAKING CLINDAMYCIN HCL 300 MG CAPSULE 1 CAPSULE ORALLY EVERY 6 HRS NOT-TAKING TYLENOL 650 MG TABLET 2 TABLET NEEDED ORALLY EVERY 6 HRS NOT-TAKING MELOXICAM 15 MG TABLET 1 TABLET ORALLY ONCE A DAY, NOTES: NEEDED NOT-TAKING VICODIN 5-300 MG TABLET 1 TABLET NEEDED ORALLY EVERY 6 HRS NOT-TAKING ROBAXIN 500 MG TABLET 2 TABLETS ORALLY EVERY 6 HRS MEDICATION LIST REVIEWED AND RECONCILED WITH THE PATIENT PAST MEDICAL HISTORY GRAVE'S DISEASE WITH IODINE THERAPY, [address] URIOSTEGUI G4, 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, WOULD HAVE BEEN IN MID , UNSURE OF EXACTLY WHAT THIS WAS OR HOW IT WAS TREATED, [place] ALLERGIES PENICILLIN (FOR ALLERGIES USE ONLY): ANAPHYLAXIS: ALLERGY ANY CILLINS: ANAPHYLAXIS: ALLERGY SOCIAL HISTORY GENERAL: TOBACCO USE ARE YOU A:CURRENT SMOKER NOT INTERESTED IN QUITTING SMOKING TODAY HOW MANY CIGARETTES A DAY DO YOU SMOKE?11-20 HOW OFTEN DO YOU SMOKE CIGARETTES?EVERY DAY PATIENT COUNSELED ON THE DANGERS OF TOBACCO USE AND URGED TO QUIT:07/08/2016 ARE YOU INTERESTED IN QUITTING?NOT READY TO QUIT COUNSELED THE PATIENT ON SMOKING EFFECTS, EDUCATION [id number]/25/2017 LUNG CANCER SCREENING SMOKING STATUS:CURRENT SMOKER BMI CARE GOAL FOLLOW-UP ABOVE NORMAL BMI FOLLOW-UPDIETARY MANAGEMENT EDUCATION, GUIDANCE, AND COUNSELING ALCOHOL SCREENING DID YOU HAVE A DRINK CONTAINING ALCOHOL IN THE PAST YEAR?NO POINTS0 INTERPRETATIONNEGATIVE RECREATIONAL DRUG USE DRUG USE?NO CAFFEINE CAFFEINE USE?YES HOW OFTEN AND HOW MUCH? DAILY [place] DEW 2-3 PER DAY SEXUAL HX HAD SEX IN THE LAST 12 MONTHS (VAGINAL, ORAL, OR ANAL)?YES WITHMEN ONLY USE PROTECTION?YES HOW OFTEN?ALL OF THE TIME DIET: REGULAR. EPISCOPALIAN [id number] JUDAISM LANGUAGE LANGUAGES SPOKEN:SAL[place]OREAN EDUCATION LEVEL OF EDUCATION:FINISHED HIGH SCHOOL LEARNING BARRIERS / SPECIAL NEEDS BARRIERS TO LEARNING?NO HEARING IMPAIRED?NO VISION IMPAIRED?YES :CORRECTIVE LENSES COGNITIVELY IMPAIRED?NO READINESS TO LEARN?YES LEARNING PREFERENCES?NO SPECIAL DEVICES?NO RN ADVANCED NEEDED?NO MISCELLANEOUS: NO ORIENTAL ORTHODOX BARRIERS . MEDICATION ABUSE NO ORIENTAL ORTHODOX BARRIERS . PAIN CLINIC PFS, CLERGY, PUBLIC HEALTH REFERRALS PFS REFERRAL NEEDED?NO CLERGY REFERRAL NEEDED?NO PUBLIC HEALTH REFERRAL NEEDED?NO WAS THE PROVIDER NOTIFIED OF ANY PERTINENT INFO?NO HAS THE PATIENT BEEN EDUCATED REGARDING HIS/HER PLAN OF CARE?YES HAS THE PATIENT BEEN EDUCATED REGARDING PAIN, THE RISK FOR PAIN, THE IMPORTANCE OF EFFECTIVE PAIN MANAGEMENT, AND THE PAIN ASSESSMENT PROCESS?YES PATIENT: ____. REVIEW OF SYSTEMS REVIEWED BY: PROVIDER: MOHINI CONKLIN . CONSTITUTIONAL: ANY CHANGE IN YOUR MEDICAL CONDITION? NO . CHILLS NO . FEVER NO . INFECTION: DO YOU HAVE NEW INFECTIONS? NO . DO YOU HAVE HISTORY OF MRSA? NO . MUSCULOSKELETAL: ANY NEW PATTERNS OF PAIN OR NUMBNESS? NO . GASTROENTEROLOGY: ANY NEW CHANGE IN BOWEL CONTROL? NO . GENITOURINARY: ANY NEW CHANGE IN BLADDER CONTROL? NO . IS THERE A CHANCE YOU COULD BE ? NO . HEMATOLOGY/LYMPH: DO YOU TAKE ANY BLOOD THINNERS? (FOR EXAMPLE- COUMADIN, PLAVIX, AGGRENOX, PLATEL, PRADAXA, OR XARELTO) NO . WHEN WAS YOUR LAST DOSE? DATE: TIME: . NEUROLOGY: HAVE YOU FALLEN IN THE PAST 6 MONTHS? NO . ANY NEW EXTREMITY NUMBNESS OR WEAKNESS? NO . CARDIOLOGY: DO YOU HAVE A PACEMAKER OR DEFIBRILLATOR? NO . RESPIRATORY: HAVE YOU BEEN SICK IN THE PAST WEEK? NO . FEVER NO . FLU LIKE SYMPTOMS? NO . COUGH NO . INTEGUMENTARY: DO YOU HAVE ANY RASHES OR OPEN SORES? NO . ALLERGIC/IMMUNO: ARE YOU ALLERGIC TO SHELLFISH OR IV DYE? NO . ANY NEW ALLERGIES? NO . PSYCHIATRIC: DO YOU HAVE THOUGHTS OF HURTING YOURSELF OR SOMEONE ELSE? NO . ARE YOU ABUSED, NEGLECTED, OR IN AN UNSAFE ENVIRONMENT? NO . ENDOCRINOLOGY: ARE YOU DIABETIC? NO . OTHER: DO YOU NEED ANY PRESCRIPTIONS? YES . IF YES, PLEASE LIST: HYDROCODONE-ACETAMINOPHEN 5/325 MG . ANY NEW PROBLEMS WITH YOUR MEDICATIONS? NO . WHEN DID YOU LAST EAT? ____ . WHEN DID YOU LAST DRINK? ____ . WHAT DID YOU LAST DRINK? ____ . NAME OF PERSON DRIVING YOU HOME? ____ . DO YOU HAVE ANY OTHER QUESTIONS OR CONCERNS NO . VITAL SIGNS WT 214 LBS, HT 60 IN, BMI 41.79 INDEX, BP 138/78 MM HG, HR 84 /MIN, RR 18 /MIN, TEMP 97.8 F, OXYGEN SAT % 95%, NA INITIALS SC 15:17, REVIEWED BY: CS. EXAMINATION GENERAL EXAMINATION: GENERAL APPEARANCE:OBESE, UNCOMFORTABLE. PSYCHAFFECT NORMAL. LUNGS:LUNG VALDES ARE CLEAR TO AUSCULTATION BILATERALLY. GOOD MOVEMENT OF AIR. HEART:S1, S2 IN A REGULAR RATE AND RHYTHM. NO SIGNIFICANT MURMURS, RUBS OR GALLOPS NOTED. ABDOMEN:SOFT, NON-TENDER/NON-DISTENDED, BOWEL SOUNDS PRESENT. LUMBAR SPINE/LOWER BACK: INSPECTION:NORMAL CURVATURE OF SPINE. PALPATION:VERTEBRAL SPINE TENDERNESS, PARASPINAL TENDERNESS. MOTOR SYSTEM:5/5 BLE. SENSORY EXAM:NORMAL BILATERAL LE. ASSESSMENTS DISC DISPLACEMENT, LUMBAR - M51.26 (PRIMARY) CHRONIC PRESCRIPTION OPIATE USE - Z79.891 TREATMENT DISC DISPLACEMENT, LUMBAR CONTINUE NORCO TABLET, 5-325 MG, 1, ORALLY, EVERY 6 HRS PRN PAIN MDD4 NOTES: INTRALAMINAL L4/5 LESI,PATIENT EDUCATION WAS PRINTED,LUMBAR EPIDURAL INJECTION: RECOVERY AT HOME MATERIAL WAS PRINTED,WHAT IS LUMBAR EPIDURAL INJECTION? MATERIAL WAS PRINTED,LUMBAR EPIDURAL INJECTION: YOUR PROCEDURE MATERIAL WAS PRINTED. PREVENTIVE MEDICINE PAIN CLINIC TEACHING: PROCEDURE TEACHING EPIDURAL INFORMATION GIVEN. QUESTIONS ANSWERED AND PATIENT VERBALIZES UNDERSTANDING.. PROCEDURE CODES FA211 ESTABILISHED PATIENT [facility] CHARGE DISPOSITION & COMMUNICATION FOLLOW UP 2WK POST/NO AUTH NEEDED (REASON: INTRALAMINAL L4/5 LESI) ELECTRONICALLY SIGNED BY RUBIN NUNEZ ON 09/25/2016 AT 01:27 PM EDT DISCLAIMER : THIS IS A VISIT SUMMARY EXTRACTED FROM THE [employer] CHART. IT IS NOT A COPY OF THE [employer] PROGRESS NOTE. [employer]
== END ==
LOC: M PAIN 14:40
PROVIDERS: ATTEND Nurse Practitioner Family
DX: G89.29 Other chronic pain (principal); M51.26 Other intervertebral disc displacement, lumbar region; M79.604 Pain in right leg; M79.605 Pain in left leg; E03.9 Hypothyroidism, unspecified; F17.210 Nicotine dependence, cigarettes, uncomplicated; E66.01 Morbid (severe) obesity due to excess calories; E78.2 Mixed hyperlipidemia; E55.9 Vitamin D deficiency, unspecified; I44.0 Atrioventricular block, first degree; Z68.41 Body mass index [BMI] 40.0-44.9, adult; Z88.0 Allergy status to penicillin; Z88.1 Allergy status to other antibiotic agents; Z79.1 Long term (current) use of non-steroidal anti-inflammatories (NSAID); Z79.891 Long term (current) use of opiate analgesic; Z79.899 Other long term (current) drug therapy

== ENCOUNTER → 2016-10-02 | Outpatient (CLI) | payer BC ==
--- NOTE | 2016-10-14 01:37 | ECWPNPC ---
PATIENT NAME: NETTA MARC : 1965 GENDER: FEMALE VISIT DATE: 10/02/2016 DISCHARGE DATE: 10/02/16 1354 VISIT LOCKED DATE TIME: PHYSICIAN: LIDIA MACEDO RESOURCE: LIDIA MACEDO REASON FOR APPOINTMENT 1. LOW BACK PAIN HISTORY OF PRESENT ILLNESS HISTORY OF PRESENT ILLNESS: PAIN THE PATIENT DESCRIBES THE PAIN... 51 YEAR OLD FEMALE PATIENT WITH HISTORY OF CHRONIC LEG PAIN. PATIENT DESCRIBES THE PAIN ACHING, THROBBING, SORE, SHOOTING, AND HAVING IT ALL THE TIME WITH A PAIN SCORE OF 8/10. PATIENT IS CURRENTLY USING NORCO, IBUPROFEN AND GABAPENTIN TO AID IN PAIN RELIEF. PATIENT REPORTS THE MEDICATION KEEPING HER MOBILE AND FUNCTIONAL. PATIENT DENIES UNEXPLAINABLE WEIGHT LOSS, FEVER, CHILLS, NEW CHANGES ON HER URINARY OR BOWEL CONTROL. FALL RISK SCREENING: SCREENING :NO FALLS IN THE PAST YEAR CURRENT MEDICATIONS TAKING GABAPENTIN 300 MG CAPSULE 1 CAPSULE ORALLY THREE TIMES A DAY, NOTES: 10/02 599 TAKING LEVOTHYROXINE SODIUM 200 MCG TABLET 1 TAB ORALLY DAILY, NOTES: 10/02 599 TAKING COLACE 100 MG CAPSULE 1-2 ORALLY BID, NOTES: 10/02 599 TAKING NORCO 5-325 MG TABLET 1 ORALLY EVERY 6 HRS PRN PAIN MDD4, NOTES: 10/02 599 TAKING IBUPROFEN 800 MG TABLET 1 TABLET ORALLY THREE TIMES A DAY, NOTES: 10/02 599 NOT-TAKING CLINDAMYCIN HCL 300 MG CAPSULE 1 CAPSULE ORALLY EVERY 6 HRS NOT-TAKING TYLENOL 650 MG TABLET 2 TABLET NEEDED ORALLY EVERY 6 HRS NOT-TAKING MELOXICAM 15 MG TABLET 1 TABLET ORALLY ONCE A DAY, NOTES: NEEDED NOT-TAKING VICODIN 5-300 MG TABLET 1 TABLET NEEDED ORALLY EVERY 6 HRS NOT-TAKING ROBAXIN 500 MG TABLET 2 TABLETS ORALLY EVERY 6 HRS DISCONTINUED GABAPENTIN 300 MG CAPSULE TAKE ONE CAPSULE BY MOUTH THREE TIMES A DAY MEDICATION LIST REVIEWED AND RECONCILED WITH THE PATIENT PAST MEDICAL HISTORY GRAVE'S DISEASE WITH IODINE THERAPY, [address] URIOSTEGUI G4, 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, WOULD HAVE BEEN IN MID 90S, UNSURE OF EXACTLY WHAT THIS WAS OR HOW IT WAS TREATED, [place] ALLERGIES PENICILLIN (FOR ALLERGIES USE ONLY): ANAPHYLAXIS: ALLERGY ANY CILLINS: ANAPHYLAXIS: ALLERGY SOCIAL HISTORY GENERAL: TOBACCO USE ARE YOU A:CURRENT SMOKER NOT INTERESTED IN QUITTING SMOKING TODAY HOW MANY CIGARETTES A DAY DO YOU SMOKE?11-20 HOW SOON AFTER YOU WAKE UP DO YOU SMOKE YOUR FIRST CIGARETTE?6-30 MIN HOW OFTEN DO YOU SMOKE CIGARETTES?EVERY DAY PATIENT COUNSELED ON THE DANGERS OF TOBACCO USE AND URGED TO QUIT:10/02/2016 ARE YOU INTERESTED IN QUITTING?NOT READY TO QUIT COUNSELED THE PATIENT ON SMOKING EFFECTS, EDUCATION [id number]/20/2017 LUNG CANCER SCREENING SMOKING STATUS:CURRENT SMOKER BMI CARE GOAL FOLLOW-UP ABOVE NORMAL BMI FOLLOW-UPDIETARY MANAGEMENT EDUCATION, GUIDANCE, AND COUNSELING ALCOHOL SCREENING DID YOU HAVE A DRINK CONTAINING ALCOHOL IN THE PAST YEAR?NO POINTS0 INTERPRETATIONNEGATIVE RECREATIONAL DRUG USE DRUG USE?NO CAFFEINE CAFFEINE USE?YES HOW OFTEN AND HOW MUCH? DAILY MOUNTAIN DEW 2-3 PER DAY SEXUAL HX HAD SEX IN THE LAST 12 MONTHS (VAGINAL, ORAL, OR ANAL)?YES WITHMEN ONLY USE PROTECTION?YES HOW OFTEN?ALL OF THE TIME DIET: REGULAR. PENTECOSTALISM [id number] BAPTISM LANGUAGE LANGUAGES SPOKEN:[place] EDUCATION LEVEL OF EDUCATION:FINISHED HIGH SCHOOL LEARNING BARRIERS / SPECIAL NEEDS BARRIERS TO LEARNING?NO HEARING IMPAIRED?NO VISION IMPAIRED?YES COGNITIVELY IMPAIRED?NO :CORRECTIVE LENSES READINESS TO LEARN?YES LEARNING PREFERENCES?NO SPECIAL DEVICES?NO CASING FLUID TENDER NEEDED?NO MISCELLANEOUS: NO ORIENTAL ORTHODOX BARRIERS . MEDICATION ABUSE NO ORIENTAL ORTHODOX BARRIERS . PAIN CLINIC PFS, CLERGY, PUBLIC HEALTH REFERRALS PFS REFERRAL NEEDED?NO CLERGY REFERRAL NEEDED?NO PUBLIC HEALTH REFERRAL NEEDED?NO WAS THE PROVIDER NOTIFIED OF ANY PERTINENT INFO?NO HAS THE PATIENT BEEN EDUCATED REGARDING HIS/HER PLAN OF CARE?YES HAS THE PATIENT BEEN EDUCATED REGARDING PAIN, THE RISK FOR PAIN, THE IMPORTANCE OF EFFECTIVE PAIN MANAGEMENT, AND THE PAIN ASSESSMENT PROCESS?YES PATIENT: ____. REVIEW OF SYSTEMS REVIEWED BY: PROVIDER: LIDIA MACEDO MD . CONSTITUTIONAL: ANY CHANGE IN YOUR MEDICAL CONDITION? NO . CHILLS NO . FEVER NO . INFECTION: DO YOU HAVE NEW INFECTIONS? NO . DO YOU HAVE HISTORY OF MRSA? NO . MUSCULOSKELETAL: ANY NEW PATTERNS OF PAIN OR NUMBNESS? NO . GASTROENTEROLOGY: ANY NEW CHANGE IN BOWEL CONTROL? NO . GENITOURINARY: ANY NEW CHANGE IN BLADDER CONTROL? NO . IS THERE A CHANCE YOU COULD BE ? NO . HEMATOLOGY/LYMPH: DO YOU TAKE ANY BLOOD THINNERS? (FOR EXAMPLE- COUMADIN, PLAVIX, AGGRENOX, PLATEL, PRADAXA, OR XARELTO) NO . WHEN WAS YOUR LAST DOSE? DATE: TIME: . NEUROLOGY: HAVE YOU FALLEN IN THE PAST 6 MONTHS? NO . ANY NEW EXTREMITY NUMBNESS OR WEAKNESS? NO . CARDIOLOGY: DO YOU HAVE A PACEMAKER OR DEFIBRILLATOR? NO . RESPIRATORY: HAVE YOU BEEN SICK IN THE PAST WEEK? NO . FEVER NO . FLU LIKE SYMPTOMS? NO . COUGH NO . INTEGUMENTARY: DO YOU HAVE ANY RASHES OR OPEN SORES? NO . ALLERGIC/IMMUNO: ARE YOU ALLERGIC TO SHELLFISH OR IV DYE? NO . ANY NEW ALLERGIES? NO . PSYCHIATRIC: DO YOU HAVE THOUGHTS OF HURTING YOURSELF OR SOMEONE ELSE? NO . ARE YOU ABUSED, NEGLECTED, OR IN AN UNSAFE ENVIRONMENT? NO . ENDOCRINOLOGY: ARE YOU DIABETIC? NO . OTHER: DO YOU NEED ANY PRESCRIPTIONS? NO . IF YES, PLEASE LIST: ____ . ANY NEW PROBLEMS WITH YOUR MEDICATIONS? NO . WHEN DID YOU LAST EAT? 10/01 1900 . WHEN DID YOU LAST DRINK? 10/02 0600 . WHAT DID YOU LAST DRINK? WATER . NAME OF PERSON DRIVING YOU HOME? DAUGHTER-MINH . DO YOU HAVE ANY OTHER QUESTIONS OR CONCERNS NO . VITAL SIGNS WT 211.8 LBS, HT 60 IN, BMI 41.36 INDEX, BP 123/66 MM HG, HR 88 /MIN, RR 16 /MIN, TEMP 98.2 F, OXYGEN SAT % 95%, NA INITIALS SC 08:57, REVIEWED BY: RAJESH. EXAMINATION : PATIENT IS ALERT O X 3 AND COOPERATIVE. ANTALGIC GAIT. LIMPING FROM LEFT LEG. MRI OF THE LUMBAR SPINE DONE ON 05/10/16 SHOWS DEGENERATIVE DISC DISEASE AND DISC BULGES. ASSESSMENTS INTERVERTEBRAL DISC DISORDERS WITH RADICULOPATHY, LUMBAR REGION - M51.16 (PRIMARY) INTERVERTEBRAL DISC DISORDERS WITH RADICULOPATHY, LUMBOSACRAL REGION - M51.17 RIGHT KNEE NEUROPATHY RIGHT KNEE PAIN. TREATMENT INTERVERTEBRAL DISC DISORDERS WITH RADICULOPATHY, LUMBAR REGION NOTES: WE DICUSSED SEVERAL ISSUES WITH MRS. MARC'S PAIN MANAGEMENT CASE. AT THIS TIME THE PATIENT WILL CONTINUE WITH THE SAME MEDICATION REGIME BEFORE. I WOULD ALSO LIKE THE PATIENT TO START USING PENNSAID ON THE RIGHT KNEE. I DISCUSSED BRIEFLY WITH THE PATIENT THE OPTION OF DCS AND GAVE HER INFORMATION TO DO MORE RESEARCH. PATIENT WILL FOLLOW UP WITH VASCULAR DOCTOR ABOUT THE CIRCULATION ISSUE IN THE LEGS. PATIENT WILL RETURN TO THE CLINIC IN 4 WEEKS AND WILL CONSIDER DOING A HIP INJECTION. INSTRUCTIONS WERE GIVEN, QUESTIONS WERE ANSWERED, PATIENT REPORTS UNDERSTANDING AND AGREES WITH THE PLAN. I, PAZ HUDSON, DOCUMENTED THE ABOVE INFORMATION ACTING A SCRIBE FOR DR. MACEDO. I HAVE REVIEWED THE ABOVE DOCUMENT, WRITTEN BY PAZ SANCHEZ AND I VERIFY THAT IT IS ACCURATE. OTHERS START PENNSAID 1.5% DROPS, 1.5%, 10, 4 SIDES OF KNEES, FOUR TIMES DAILY NEEDED FOR PAIN, 30 DAY(S), 1, REFILLS 2 PROCEDURE CODES FA211 ESTABILISHED PATIENT [facility] FACILITY CHARGE G0827 DOC MEDS VERIFIED W/PT OR RE G7423 PAIN ASSESS POS TOOL F/U PLAN DOC DISPOSITION & COMMUNICATION FOLLOW UP 6 WEEKS ELECTRONICALLY SIGNED BY LIDIA MACEDO MD ON 10/13/2016 AT 11:30 AM EDT DISCLAIMER : THIS IS A VISIT SUMMARY EXTRACTED FROM THE [employer] CHART. IT IS NOT A COPY OF THE [employer] PROGRESS NOTE. SALEEM
== END ==
LOC: M PAIN 08:40
PROVIDERS: ATTEND Anesthesiology
DX: G89.29 Other chronic pain (principal); M51.16 Intervertebral disc disorders with radiculopathy, lumbar region; M51.17 Intervertebral disc disorders with radiculopathy, lumbosacral region; E03.9 Hypothyroidism, unspecified; F17.210 Nicotine dependence, cigarettes, uncomplicated; E66.9 Obesity, unspecified; Z68.41 Body mass index [BMI] 40.0-44.9, adult; E78.2 Mixed hyperlipidemia; E55.9 Vitamin D deficiency, unspecified; Z88.0 Allergy status to penicillin; Z79.891 Long term (current) use of opiate analgesic; Z79.1 Long term (current) use of non-steroidal anti-inflammatories (NSAID); Z79.899 Other long term (current) drug therapy

== ENCOUNTER → 2016-10-14 | Outpatient (CLI) | payer BC ==
--- NOTE | 2016-10-14 16:22 | REPMRS ---
Patient History The patient states she had a clinical breast exam in 10/30 Patient is postmenopausal. Family history of unknown cancer in father and breast cancer in maternal grandmother. Digital Woman Screen Mammo: October 14, 2016 - Exam #: [id number] Bilateral CC and MLO view(s) were taken. Technologist: Christiana Rain, Technologist Prior study comparison: December 28, 2013, bilateral digital mammo screening bilat, performed at [facility]. June 01, 2012, digital woman screen mammo performed at [facility]. FINDINGS: There are scattered fibroglandular densities. There has been no change in the appearance of the mammogram from the prior studies. There is a mild amount of residual fibroglandular tissue which is fairly symmetric. There is no interval development of dominant mass, architectural distortion, or clustered microcalcification suggestive of malignancy. ASSESSMENT: BI-RADS/ACR category 1 mammogram. Negative. Recommendation Routine screening mammogram in 1 year. A. Negative x-ray reports should not delay biopsy if a dominant or clinically suspicious mass is present. B. Four to eight percent of cancers are not identified by mammography. C. Adenosis and dense breast may obscure an underlying neoplasm.(for women over age 40). This mammogram was interpreted with the aid of an FDA-approved computer-aided dectection system. Electronically Signed By: Miguel Angel Reyna MD 10/14/16 [id number]
== END ==
LOC: M WHC 13:38
PROVIDERS: ATTEND Nurse Practitioner Family
DX: Z12.31 Encounter for screening mammogram for malignant neoplasm of breast (principal)

== ENCOUNTER → 2016-10-14 | Outpatient (REF) | payer BC | LOC: M SFHCWAGY 14:11 | PROVIDERS: ATTEND Nurse Practitioner Family | DX: Z12.4 Encounter for screening for malignant neoplasm of cervix (principal) ==

== ENCOUNTER → 2016-11-27 | Outpatient (REF) | payer OTHER | LOC: M SFHCADAM 15:47 | PROVIDERS: ATTEND Physician Assistant Medical | DX: E89.0 Postprocedural hypothyroidism (principal); E66.01 Morbid (severe) obesity due to excess calories; E55.9 Vitamin D deficiency, unspecified ==

== ENCOUNTER → 2016-12-02 | Outpatient (CLI) | payer OTHER ==
--- NOTE | 2016-12-17 00:48 | ECWPNPC ---
PATIENT NAME: NETTA MARC : 1965 GENDER: FEMALE VISIT DATE: 12/02/2016 DISCHARGE DATE: 12/02/16 1634 VISIT LOCKED DATE TIME: PHYSICIAN: MOHINI TANNER RESOURCE: MOHINI TANNER REASON FOR APPOINTMENT 1. R. KNEE HISTORY OF PRESENT ILLNESS HISTORY OF PRESENT ILLNESS: HERE FOR F/U FOR CHRONIC LOW BACK PAIN AND BILATERAL LEG PAIN.HAS NOT HAD LESI .DR MACEDO CHANGED APT. TO F/U.HE CONCERNED ABOUT KNEE SWELLING.HE CAME IN TO TALK WITH PATIENT.USING HYDROCODONE 5/325 PRN FOR SEVERE PAIN AND IS FINDING IT HELPFUL.STATES SHE IS BETTER ABLE TO TOLERATE HER JOB AND IS HAVING IMPROVED SLEEP.DENIES SIDE EFFECTS.RATING PAIN VAS 4/10. PAIN THE PATIENT DESCRIBES THE PAIN... THE PATIENT DESCRIBES THE PAIN... FALL RISK SCREENING: SCREENING :NO FALLS IN THE PAST YEAR CURRENT MEDICATIONS TAKING GABAPENTIN 300 MG CAPSULE 1 CAPSULE ORALLY THREE TIMES A DAY TAKING LEVOTHYROXINE SODIUM 200 MCG TABLET 1 TAB ORALLY DAILY TAKING COLACE 100 MG CAPSULE 1-2 ORALLY BID TAKING IBUPROFEN 800 MG TABLET 1 TABLET ORALLY THREE TIMES A DAY TAKING NORCO 5-325 MG TABLET 1 ORALLY EVERY 6 HRS PRN PAIN MDD4 TAKING DRISDOL 60506 UNIT CAPSULE 1 CAPSULE ORALLY ONCE WEEKLY TAKING PENNSAID 1.5% 1.5% DROPS 10 4 SIDES OF KNEES FOUR TIMES DAILY NEEDED FOR PAIN MEDICATION LIST REVIEWED AND RECONCILED WITH THE PATIENT PAST MEDICAL HISTORY GRAVE'S DISEASE WITH IODINE THERAPY, [address] URIOSTEGUI G4, 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, WOULD HAVE BEEN IN MID , UNSURE OF EXACTLY WHAT THIS WAS OR HOW IT WAS TREATED, [place] ALLERGIES PENICILLIN (FOR ALLERGIES USE ONLY): ANAPHYLAXIS: ALLERGY ANY CILLINS: ANAPHYLAXIS: ALLERGY SOCIAL HISTORY GENERAL: TOBACCO USE ARE YOU A:CURRENT SMOKER NOT INTERESTED IN QUITTING SMOKING TODAY HOW MANY CIGARETTES A DAY DO YOU SMOKE?11-20 HOW SOON AFTER YOU WAKE UP DO YOU SMOKE YOUR FIRST CIGARETTE?6-30 MIN HOW OFTEN DO YOU SMOKE CIGARETTES?EVERY DAY PATIENT COUNSELED ON THE DANGERS OF TOBACCO USE AND URGED TO QUIT:10/02/2016 ARE YOU INTERESTED IN QUITTING?NOT READY TO QUIT COUNSELED THE PATIENT ON SMOKING EFFECTS, EDUCATION [id number]/20/2017 LUNG CANCER SCREENING SMOKING STATUS:CURRENT SMOKER BMI CARE GOAL FOLLOW-UP ABOVE NORMAL BMI FOLLOW-UPDIETARY MANAGEMENT EDUCATION, GUIDANCE, AND COUNSELING ALCOHOL SCREENING DID YOU HAVE A DRINK CONTAINING ALCOHOL IN THE PAST YEAR?NO POINTS0 INTERPRETATIONNEGATIVE RECREATIONAL DRUG USE DRUG USE?NO CAFFEINE CAFFEINE USE?YES HOW OFTEN AND HOW MUCH? DAILY M[place]AIN DEW 2-3 PER DAY SEXUAL HX HAD SEX IN THE LAST 12 MONTHS (VAGINAL, ORAL, OR ANAL)?YES WITHMEN ONLY USE PROTECTION?YES HOW OFTEN?ALL OF THE TIME DIET: REGULAR. MARITAL STATUS: .. OTHERS AT HOME: DAUGHTER. PETS: 1 CAT. RASTAFARIAN [id number] LATTER DAY LANGUAGE LANGUAGES SPOKEN:IRISH EDUCATION LEVEL OF EDUCATION:FINISHED HIGH SCHOOL LEARNING BARRIERS / SPECIAL NEEDS CHANGE FROM LAST VISIT?NO BARRIERS TO LEARNING?NO HEARING IMPAIRED?NO VISION IMPAIRED?YES :CORRECTIVE LENSES COGNITIVELY IMPAIRED?NO READINESS TO LEARN?YES LEARNING PREFERENCES?NO LEARNING CAPABILITIES PRESENT?YES EMOTIONAL BARRIERS?NO SPECIAL DEVICES?NO LOAD DISPATCHER NEEDED?NO MISCELLANEOUS: NO RELIGION BARRIERS . MEDICATION ABUSE NO RELIGION BARRIERS . PAIN CLINIC PFS, CLERGY, PUBLIC HEALTH REFERRALS PFS REFERRAL NEEDED?NO CLERGY REFERRAL NEEDED?NO PUBLIC HEALTH REFERRAL NEEDED?NO WAS THE PROVIDER NOTIFIED OF ANY PERTINENT INFO?NO HAS THE PATIENT BEEN EDUCATED REGARDING HIS/HER PLAN OF CARE?YES HAS THE PATIENT BEEN EDUCATED REGARDING PAIN, THE RISK FOR PAIN, THE IMPORTANCE OF EFFECTIVE PAIN MANAGEMENT, AND THE PAIN ASSESSMENT PROCESS?YES PATIENT: ____. REVIEW OF SYSTEMS REVIEWED BY: PROVIDER: MOHINI CONKLIN . CONSTITUTIONAL: ANY CHANGE IN YOUR MEDICAL CONDITION? NO . CHILLS NO . FEVER NO . INFECTION: DO YOU HAVE NEW INFECTIONS? NO . DO YOU HAVE HISTORY OF MRSA? NO . MUSCULOSKELETAL: ANY NEW PATTERNS OF PAIN OR NUMBNESS? NO . GASTROENTEROLOGY: ANY NEW CHANGE IN BOWEL CONTROL? NO . GENITOURINARY: ANY NEW CHANGE IN BLADDER CONTROL? NO . IS THERE A CHANCE YOU COULD BE ? NO . HEMATOLOGY/LYMPH: DO YOU TAKE ANY BLOOD THINNERS? (FOR EXAMPLE- COUMADIN, PLAVIX, AGGRENOX, PLATEL, PRADAXA, OR XARELTO) NO . WHEN WAS YOUR LAST DOSE? DATE: TIME: . NEUROLOGY: HAVE YOU FALLEN IN THE PAST 6 MONTHS? NO . ANY NEW EXTREMITY NUMBNESS OR WEAKNESS? NO . CARDIOLOGY: DO YOU HAVE A PACEMAKER OR DEFIBRILLATOR? NO . RESPIRATORY: HAVE YOU BEEN SICK IN THE PAST WEEK? NO . FEVER NO . FLU LIKE SYMPTOMS? NO . COUGH NO . INTEGUMENTARY: DO YOU HAVE ANY RASHES OR OPEN SORES? NO . ALLERGIC/IMMUNO: ARE YOU ALLERGIC TO SHELLFISH OR IV DYE? NO . ANY NEW ALLERGIES? NO . PSYCHIATRIC: DO YOU HAVE THOUGHTS OF HURTING YOURSELF OR SOMEONE ELSE? NO . ARE YOU ABUSED, NEGLECTED, OR IN AN UNSAFE ENVIRONMENT? NO . ENDOCRINOLOGY: ARE YOU DIABETIC? NO . OTHER: DO YOU NEED ANY PRESCRIPTIONS? NO . IF YES, PLEASE LIST: ____ . ANY NEW PROBLEMS WITH YOUR MEDICATIONS? NO . WHEN DID YOU LAST EAT? ____ . WHEN DID YOU LAST DRINK? ____ . WHAT DID YOU LAST DRINK? ____ . NAME OF PERSON DRIVING YOU HOME? ____ . DO YOU HAVE ANY OTHER QUESTIONS OR CONCERNS NO . VITAL SIGNS WT 214.2 LBS, HT 60 IN, BMI 41.83 INDEX, BP 141/73 MM HG, HR 97 /MIN, RR 18 /MIN, TEMP 97.5 F, OXYGEN SAT % 97%, NA INITIALS SC 15:07, REVIEWED BY: NARENDRA. EXAMINATION GENERAL EXAMINATION: GENERAL APPEARANCE:OBESE, UNCOMFORTABLE. PSYCHAFFECT NORMAL. LUNGS:LUNG VALDES ARE CLEAR TO AUSCULTATION BILATERALLY. GOOD MOVEMENT OF AIR. HEART:S1, S2 IN A REGULAR RATE AND RHYTHM. NO SIGNIFICANT MURMURS, RUBS OR GALLOPS NOTED. ABDOMEN:SOFT, NON-TENDER/NON-DISTENDED, BOWEL SOUNDS PRESENT. LUMBAR SPINE/LOWER BACK: INSPECTION:NORMAL CURVATURE OF SPINE. PALPATION:VERTEBRAL SPINE TENDERNESS, PARASPINAL TENDERNESS. MOTOR SYSTEM:5/5 BLE. SENSORY EXAM:NORMAL BILATERAL LE. ASSESSMENTS DISC DISPLACEMENT, LUMBAR - M51.26 (PRIMARY) LUMBAR RADICULOPATHY - M54.16 TREATMENT DISC DISPLACEMENT, LUMBAR CONTINUE NORCO TABLET, 5-325 MG, 1, ORALLY, EVERY 6 HRS PRN PAIN MDD4 OTHERS NOTES: INTRALAMINAR L4/5 LESI. PREVENTIVE MEDICINE PAIN CLINIC TEACHING: PROCEDURE TEACHING PRE-PROCEDURE TEACHING DONE AND PATIENT VERBALIZES UNDERSTANDING.. PROCEDURE CODES FA211 ESTABILISHED PATIENT [facility] FACILITY CHARGE DISPOSITION & COMMUNICATION FOLLOW UP 2WK POST (REASON: INTRALAMINAR L4/5 LESI) ELECTRONICALLY SIGNED BY RUBIN NUNEZ ON 12/15/2016 AT 05:18 PM EDT DISCLAIMER : THIS IS A VISIT SUMMARY EXTRACTED FROM THE [employer] CHART. IT IS NOT A COPY OF THE [employer] PROGRESS NOTE. SALEEM
== END ==
LOC: M PAIN 15:00
PROVIDERS: ATTEND Nurse Practitioner Family
DX: G89.29 Other chronic pain (principal); M51.26 Other intervertebral disc displacement, lumbar region; M54.16 Radiculopathy, lumbar region; C03.9 Malignant neoplasm of gum, unspecified; F17.210 Nicotine dependence, cigarettes, uncomplicated; E66.01 Morbid (severe) obesity due to excess calories; Z68.41 Body mass index [BMI] 40.0-44.9, adult; E78.2 Mixed hyperlipidemia; E89.0 Postprocedural hypothyroidism; E55.9 Vitamin D deficiency, unspecified; Z88.0 Allergy status to penicillin; Z88.1 Allergy status to other antibiotic agents; Z79.1 Long term (current) use of non-steroidal anti-inflammatories (NSAID); Z79.891 Long term (current) use of opiate analgesic; Z79.899 Other long term (current) drug therapy

== ENCOUNTER → 2016-12-31 | Outpatient (CLI) | payer OTHER ==
[~2016-12-31] MED LIST: ISOVUE-M 300 61% 15ML VIAL (Q9967) As Ordered ONE; LIDOCAINE 1% SDV INJ 30 ML VIAL As Ordered ONE; diazePAM 5 MG TAB As Ordered ONE; methylPREDNISolone SUSP 40 MG/ML (DEPO-medrol) VIAL (J1030) As Ordered ONE; oxyCODONE 5MG TAB As Ordered ONE
--- NOTE | 2016-12-31 15:16 | REP ---
FLUOROSCOPIC GUIDED SPINAL INJECTION: The films were reviewed with Dr. Villeda. The patient has a history of low back pain. The portable C-arm was provided in the OR for Dr. Reynoso for fluoroscopic guidance. Two intraoperative fluoroscopic spot films were obtained using last image hold technology for needle placement verification for lumbar epidural injection. The films are on the PACs system and are available for review. 15 seconds of fluoroscopic time was utilized for this procedure. Reviewed by ROSETTA Sommers 12/31/2016 04:30 PEdited and Signed by Delmer Villeda MD 12/31/2016 05:05 P
--- NOTE | 2017-01-04 23:37 | ECWPNPC ---
PATIENT NAME: NETTA MARC : 1965 GENDER: FEMALE VISIT DATE: 12/31/2016 DISCHARGE DATE: 12/31/16 1123 VISIT LOCKED DATE TIME: PHYSICIAN: LIDIA MACEDO RESOURCE: LIDIA MACEDO REASON FOR APPOINTMENT 1. INTRALAMINAR L4/5 LESI HISTORY OF PRESENT ILLNESS HISTORY OF PRESENT ILLNESS: PAIN THE PATIENT DESCRIBES THE PAIN... FALL RISK SCREENING: SCREENING :NO FALLS IN THE PAST YEAR CURRENT MEDICATIONS TAKING GABAPENTIN 300 MG CAPSULE 1 CAPSULE ORALLY THREE TIMES A DAY, NOTES: 12/30/16 7PM TAKING LEVOTHYROXINE SODIUM 200 MCG TABLET 1 TAB ORALLY DAILY, NOTES: 12/30/16 6AM TAKING COLACE 100 MG CAPSULE 1-2 ORALLY BID, NOTES: AWHILE TAKING IBUPROFEN 800 MG TABLET 1 TABLET ORALLY THREE TIMES A DAY, NOTES: 12/30/16 7PM TAKING DRISDOL 40750 UNIT CAPSULE 1 CAPSULE ORALLY ONCE WEEKLY, NOTES: THURSDAY TAKING PENNSAID 1.5% 1.5% DROPS 10 4 SIDES OF KNEES FOUR TIMES DAILY NEEDED FOR PAIN, NOTES: NONE TAKING NORCO 5-325 MG TABLET 1 ORALLY 1 Q 4-6H PRN FOR SEVERE PAIN EPISODES ONLY MDD4 #45 TAB SHOULD LAST 30 DAYS, NOTES: 12/30/16 1630 NOT-TAKING MUCINEX 600 MG TABLET EXTENDED RELEASE 12 HOUR 1 TABLET NEEDED ORALLY EVERY 12 HRS MEDICATION LIST REVIEWED AND RECONCILED WITH THE PATIENT PAST MEDICAL HISTORY GRAVE'S DISEASE WITH IODINE THERAPY, [address] URIOSTEGUI G4, 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, WOULD HAVE BEEN IN MID , UNSURE OF EXACTLY WHAT THIS WAS OR HOW IT WAS TREATED, [place] ALLERGIES PENICILLIN (FOR ALLERGIES USE ONLY): ANAPHYLAXIS: ALLERGY ANY CILLINS: ANAPHYLAXIS: ALLERGY SURGICAL HISTORY C SECTION X2 TUBAL LIGATION 1999 D & C LATE 20S, OR EARLY 30S KNEE RIGHT TORN MENISCUS 2014 HOSPITALIZATION/MAJOR DIAGNOSTIC PROCEDURE SEE ABOVE REVIEW OF SYSTEMS REVIEWED BY: PROVIDER: . CONSTITUTIONAL: ANY CHANGE IN YOUR MEDICAL CONDITION? NO . CHILLS NO . FEVER NO . INFECTION: DO YOU HAVE NEW INFECTIONS? NO . DO YOU HAVE HISTORY OF MRSA? NO . MUSCULOSKELETAL: ANY NEW PATTERNS OF PAIN OR NUMBNESS? NO . GASTROENTEROLOGY: ANY NEW CHANGE IN BOWEL CONTROL? NO . GENITOURINARY: ANY NEW CHANGE IN BLADDER CONTROL? NO . IS THERE A CHANCE YOU COULD BE ? NO . HEMATOLOGY/LYMPH: DO YOU TAKE ANY BLOOD THINNERS? (FOR EXAMPLE- COUMADIN, PLAVIX, AGGRENOX, PLATEL, PRADAXA, OR XARELTO) NO . WHEN WAS YOUR LAST DOSE? DATE: TIME: . NEUROLOGY: HAVE YOU FALLEN IN THE PAST 6 MONTHS? NO . ANY NEW EXTREMITY NUMBNESS OR WEAKNESS? NO . CARDIOLOGY: DO YOU HAVE A PACEMAKER OR DEFIBRILLATOR? NO . RESPIRATORY: HAVE YOU BEEN SICK IN THE PAST WEEK? NO . FEVER NO . FLU LIKE SYMPTOMS? NO . COUGH NO . INTEGUMENTARY: DO YOU HAVE ANY RASHES OR OPEN SORES? NO . ALLERGIC/IMMUNO: ARE YOU ALLERGIC TO SHELLFISH OR IV DYE? NO . ANY NEW ALLERGIES? NO . PSYCHIATRIC: DO YOU HAVE THOUGHTS OF HURTING YOURSELF OR SOMEONE ELSE? NO . ARE YOU ABUSED, NEGLECTED, OR IN AN UNSAFE ENVIRONMENT? NO . ENDOCRINOLOGY: ARE YOU DIABETIC? NO . OTHER: DO YOU NEED ANY PRESCRIPTIONS? NO . IF YES, PLEASE LIST: ____ . ANY NEW PROBLEMS WITH YOUR MEDICATIONS? NO . WHEN DID YOU LAST EAT? TUE 8PM . WHEN DID YOU LAST DRINK? TUE 10PM . WHAT DID YOU LAST DRINK? [place] DEW . NAME OF PERSON DRIVING YOU HOME? SHAHNAZ . DO YOU HAVE ANY OTHER QUESTIONS OR CONCERNS NO . VITAL SIGNS WT 205 LBS, HT 60 IN, BMI 40.03 INDEX, BP 145/89 MM HG, HR 91 /MIN, RR 18 /MIN, TEMP 98.4 F, OXYGEN SAT % 95%, NA INITIALS SC 09:05, REVIEWED BY: NL. ASSESSMENTS INTERVERTEBRAL DISC DISORDER WITH RADICULOPATHY OF LUMBAR REGION - M51.16 (PRIMARY) PROCEDURES PRE PROCEDURE DIAGNOSIS LUMBAR DISC DISORDER WITH RADICULOPATHY POST PROCEDURE DIAGNOSIS LUMBAR DISC DISORDER WITH RADICULOPATHY PROCEDURE LUMBAR EPIDURAL STEROID INJECTION UNDER FLUOROSCOPIC GUIDANCE SURGEON DR. LIDIA MACEDO CONTRACTING SUPPORT SPECIALIST NONE ANESTHESIA LOCAL PRE PROCEDURE NOTE THE PATIENT HAS A HISTORY OF CHRONIC LOW BACK PAIN. I EVALUATE THE PATIENT AND REVIEWED THE CHART. I WENT OVER THE RISKS, ALTERNATIVES, AND BENEFITS ASSOCIATED WITH THIS PROCEDURE. THE PATIENT WOULD LIKE TO PROCEED AND GIVE CONSENT TO PERFORMED THE PROCEDURE. THE PATIENT DENIES UNEXPLAINABLE WEIGHT LOSS, FEVER, CHILLS, OR NEW CHANGES IN URINARY OR BOWEL CONTROL. DESCRIPTION OF PROCEDURE THE PATIENT WAS BROUGHT TO THE PROCEDURE ROOM AND PLACED IN THE PRONE POSITION. THE LUMBOSACRAL AREA WAS CLEANED WITH BETADINE SOLUTION AND DRAPED ASEPTICALLY. THE PROCEDURE WAS DONE UNDER STERILE CONDITIONS. I CHECKED LATERALITY AND THE LEVEL WHERE THE PROCEDURE WAS GOING TO BE PERFORMED WITH THE PATIENT AND THE SUPPORTING STAFF AT THE MOMENT OF THE TIME OUT IN THE PROCEDURE ROOM. UNDER FLUOROSCOPIC GUIDANCE, THE TARGET POINT WAS SELECTED AT THE INTERLAMINAR LEVEL OF L3-L4. LIDOCAINE WAS USED TO NUMB THE SKIN AND THE SUBCUTANEOUS TISSUE BELOW IT. EPIDURAL TUOHY NEEDLE, 17-GAUGE, WAS ADVANCED UNDER FLUOROSCOPIC GUIDANCE AND FOLLOWING PATIENT FEEDBACK UNTIL THE EPIDURAL SPACE WAS REACHED, 7 CM DEEP INTO THE SKIN BY THE LOSS OF RESISTANCE TECHNIQUE. ISOVUE M DYE 30%, 0.25 ML, WAS INJECTED SHOWING ADEQUATE SPREAD OF THE DYE. THEN, A SOLUTION OF 3 ML OF NORMAL SALINE WITH DEPO-MEDROL 60 MG WAS INJECTED SLOWLY FOLLOWING PATIENT FEEDBACK. THERE WAS NO EVIDENCE OF BLOOD, PARESTHESIA OR CEREBROSPINAL FLUID DURING THE PROCEDURE. THE PATIENT WAS SENT TO THE RECOVERY ROOM. THE PATIENT WAS MOVING THE EXTREMITIES AND DOING WELL. THERE WAS NO COMPLICATION DURING THE PROCEDURE. FLUOROSCOPY TIME WAS 15 SECONDS. POST PROCEDURE NOTE THE PATIENT WILL BE SEEN IN A FOLLOW UP IN THE NEXT FEW WEEKS. INSTRUCTIONS WERE GIVEN, QUESTIONS WERE ANSWERED, AND THE PATIENT EXPRESSED UNDERSTANDING AND AGREES WITH THE PLAN. I, PAZ HUDSON, DOCUMENTED THE ABOVE INFORMATION ACTING A SCRIBE FOR DR. MACEDO. I HAVE REVIEWED THE ABOVE DOCUMENT, WRITTEN BY PAZ SANCHEZ AND I VERIFY THAT IT IS ACCURATE DIAGNOSTIC IMAGING [facility] FLUORO GUIDE SPINE INJECTION (PAIN)[id number] PROCEDURE CODES 24595 LUMBAR/SACRAL W/ IMAGING 6045F RADXPS IN END [id number] PXD DISPOSITION & COMMUNICATION FOLLOW UP 2 WEEKS ELECTRONICALLY SIGNED BY LIDIA MACEDO MD ON 01/04/2017 AT 01:29 PM EDT DISCLAIMER : THIS IS A VISIT SUMMARY EXTRACTED FROM THE [employer] CHART. IT IS NOT A COPY OF THE [employer] PROGRESS NOTE. MTDD
== END ==
LOC: M PAIN 08:30
PROVIDERS: ATTEND Anesthesiology
DX: G89.29 Other chronic pain (principal); M51.16 Intervertebral disc disorders with radiculopathy, lumbar region; E78.2 Mixed hyperlipidemia; F17.210 Nicotine dependence, cigarettes, uncomplicated; E55.9 Vitamin D deficiency, unspecified; I44.0 Atrioventricular block, first degree; E03.9 Hypothyroidism, unspecified; E66.01 Morbid (severe) obesity due to excess calories; Z68.41 Body mass index [BMI] 40.0-44.9, adult; Z88.0 Allergy status to penicillin; Z88.1 Allergy status to other antibiotic agents; Z79.1 Long term (current) use of non-steroidal anti-inflammatories (NSAID); Z79.891 Long term (current) use of opiate analgesic; Z79.899 Other long term (current) drug therapy
CPT/HCPCS: 62323; J1030; Q9967

== ENCOUNTER → 2017-02-11 | Outpatient (CLI) | payer OTHER ==
--- NOTE | 2017-02-27 01:33 | ECWPNPC ---
PATIENT NAME: NETTA MARC : 1965 GENDER: FEMALE VISIT DATE: 02/11/2017 DISCHARGE DATE: 02/11/17 1527 VISIT LOCKED DATE TIME: PHYSICIAN: MOHINI TANNER RESOURCE: MOHINI TANNER HISTORY OF PRESENT ILLNESS HISTORY OF PRESENT ILLNESS: HERE FOR POST PROCEDURE F/U.HAD LESI 12-31-16.PAIN DIARY REVIEWED.THIS IS SHOWING NO IMPROVEMENT POST PROCEDURE.RATING PAIN VAS 5/10.PAIN IS LOCATED LEFT HIPAND RIGHT LEG.HAD RIGHT KNEE OA 2YEARS AGO AND THIS IS WHEN PAIN BEGAN.DESCRIBES PAIN CONSTANT AND ACHING.IT SEVERELY IMPAIRS HER ABILITY TO TOLERATE ANY ACTIVITIES ECSPECIALLY HER JOB. PAIN THE PATIENT DESCRIBES THE PAIN... FALL RISK SCREENING: SCREENING :NO FALLS IN THE PAST YEAR CURRENT MEDICATIONS TAKING LEVOTHYROXINE SODIUM 200 MCG TABLET 1 TAB ORALLY DAILY TAKING COLACE 100 MG CAPSULE 1-2 ORALLY BID TAKING DRISDOL 26464 UNIT CAPSULE 1 CAPSULE ORALLY ONCE WEEKLY TAKING PENNSAID 1.5% 1.5% DROPS 10 4 SIDES OF KNEES FOUR TIMES DAILY NEEDED FOR PAIN TAKING IBUPROFEN 800 MG TABLET 1 TABLET ORALLY THREE TIMES A DAY TAKING NORCO 5-325 MG TABLET 1 ORALLY 1 Q 4-6H PRN FOR SEVERE PAIN EPISODES ONLY MDD4 #45 TAB SHOULD LAST 30 DAYS NOT-TAKING GABAPENTIN 300 MG CAPSULE 1 CAPSULE ORALLY THREE TIMES A DAY NOT-TAKING MUCINEX 600 MG TABLET EXTENDED RELEASE 12 HOUR 1 TABLET NEEDED ORALLY EVERY 12 HRS MEDICATION LIST REVIEWED AND RECONCILED WITH THE PATIENT PAST MEDICAL HISTORY GRAVE'S DISEASE WITH IODINE THERAPY, [address] URIOSTEGUI G4, 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, WOULD HAVE BEEN IN MID 90S, UNSURE OF EXACTLY WHAT THIS WAS OR HOW IT WAS TREATED, [place] ALLERGIES PENICILLIN (FOR ALLERGIES USE ONLY): ANAPHYLAXIS: ALLERGY ANY CILLINS: ANAPHYLAXIS: ALLERGY SURGICAL HISTORY C SECTION X2 TUBAL LIGATION 1999 D & C LATE 20S, OR EARLY 30S KNEE RIGHT TORN MENISCUS 2014 SOCIAL HISTORY GENERAL: TOBACCO USE ARE YOU A:CURRENT SMOKER NOT INTERESTED IN QUITTING SMOKING TODAY ARE YOU INTERESTED IN QUITTING?NOT READY TO QUIT COUNSELED THE PATIENT ON SMOKING EFFECTS, EDUCATION [id number]/29/2017 HOW MANY CIGARETTES A DAY DO YOU SMOKE?11-20 HOW SOON AFTER YOU WAKE UP DO YOU SMOKE YOUR FIRST CIGARETTE?6-30 MIN HOW OFTEN DO YOU SMOKE CIGARETTES?EVERY DAY PATIENT COUNSELED ON THE DANGERS OF TOBACCO USE AND URGED TO QUIT:02/11/2017 LUNG CANCER SCREENING SMOKING STATUS:CURRENT SMOKER BMI CARE GOAL FOLLOW-UP ABOVE NORMAL BMI FOLLOW-UPDIETARY MANAGEMENT EDUCATION, GUIDANCE, AND COUNSELING ALCOHOL SCREENING DID YOU HAVE A DRINK CONTAINING ALCOHOL IN THE PAST YEAR?NO POINTS0 INTERPRETATIONNEGATIVE RECREATIONAL DRUG USE DRUG USE?NO CAFFEINE CAFFEINE USE?YES HOW OFTEN AND HOW MUCH? 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 DIET: REGULAR. EXERCISE: NO REGULAR EXERCISE. MARITAL STATUS: .. OTHERS AT HOME: DAUGHTER. PETS: 1 CAT. JUDAISM [id number] JAINISM LANGUAGE LANGUAGES SPOKEN:AZERI EDUCATION LEVEL OF EDUCATION:FINISHED HIGH SCHOOL LEARNING BARRIERS / SPECIAL NEEDS CHANGE FROM LAST VISIT?YES BARRIERS TO LEARNING?NO HEARING IMPAIRED?NO VISION IMPAIRED?YES :CORRECTIVE LENSES COGNITIVELY IMPAIRED?NO READINESS TO LEARN?YES LEARNING PREFERENCES?NO LEARNING CAPABILITIES PRESENT?YES EMOTIONAL BARRIERS?NO SPECIAL DEVICES?NO MARINE FIRER NEEDED?NO MISCELLANEOUS: NO CHEONDOISM BARRIERS . MEDICATION ABUSE NO CHEONDOISM BARRIERS . PAIN CLINIC PFS, CLERGY, PUBLIC HEALTH REFERRALS PFS REFERRAL NEEDED?NO CLERGY REFERRAL NEEDED?NO PUBLIC HEALTH REFERRAL NEEDED?NO WAS THE PROVIDER NOTIFIED OF ANY PERTINENT INFO?NO HAS THE PATIENT BEEN EDUCATED REGARDING HIS/HER PLAN OF CARE?YES HAS THE PATIENT BEEN EDUCATED REGARDING PAIN, THE RISK FOR PAIN, THE IMPORTANCE OF EFFECTIVE PAIN MANAGEMENT, AND THE PAIN ASSESSMENT PROCESS?YES PATIENT: ____. HOSPITALIZATION/MAJOR DIAGNOSTIC PROCEDURE SEE ABOVE REVIEW OF SYSTEMS REVIEWED BY: PROVIDER: MOHINI CONKLIN . CONSTITUTIONAL: ANY CHANGE IN YOUR MEDICAL CONDITION? NO . CHILLS NO . FEVER NO . INFECTION: DO YOU HAVE NEW INFECTIONS? NO . DO YOU HAVE HISTORY OF MRSA? NO . MUSCULOSKELETAL: ANY NEW PATTERNS OF PAIN OR NUMBNESS? NO . GASTROENTEROLOGY: ANY NEW CHANGE IN BOWEL CONTROL? NO . GENITOURINARY: ANY NEW CHANGE IN BLADDER CONTROL? NO . IS THERE A CHANCE YOU COULD BE ? NO . HEMATOLOGY/LYMPH: DO YOU TAKE ANY BLOOD THINNERS? (FOR EXAMPLE- COUMADIN, PLAVIX, AGGRENOX, PLATEL, PRADAXA, OR XARELTO) NO . WHEN WAS YOUR LAST DOSE? DATE: TIME: . NEUROLOGY: HAVE YOU FALLEN IN THE PAST 6 MONTHS? NO . ANY NEW EXTREMITY NUMBNESS OR WEAKNESS? NO . CARDIOLOGY: DO YOU HAVE A PACEMAKER OR DEFIBRILLATOR? NO . RESPIRATORY: HAVE YOU BEEN SICK IN THE PAST WEEK? NO . FEVER NO . FLU LIKE SYMPTOMS? NO . COUGH NO . INTEGUMENTARY: DO YOU HAVE ANY RASHES OR OPEN SORES? NO . ALLERGIC/IMMUNO: ARE YOU ALLERGIC TO SHELLFISH OR IV DYE? NO . ANY NEW ALLERGIES? NO . PSYCHIATRIC: DO YOU HAVE THOUGHTS OF HURTING YOURSELF OR SOMEONE ELSE? NO . ARE YOU ABUSED, NEGLECTED, OR IN AN UNSAFE ENVIRONMENT? NO . ENDOCRINOLOGY: ARE YOU DIABETIC? NO . OTHER: DO YOU NEED ANY PRESCRIPTIONS? NO . IF YES, PLEASE LIST: ____ . ANY NEW PROBLEMS WITH YOUR MEDICATIONS? NO . WHEN DID YOU LAST EAT? ____ . WHEN DID YOU LAST DRINK? ____ . WHAT DID YOU LAST DRINK? ____ . NAME OF PERSON DRIVING YOU HOME? ____ . DO YOU HAVE ANY OTHER QUESTIONS OR CONCERNS NO . VITAL SIGNS WT 211.6 LBS, HT 60 IN, BMI 41.32 INDEX, BP 133/78 MM HG, HR 84 /MIN, RR 16 /MIN, TEMP 97.3 F, OXYGEN SAT % 96%, NA INITIALS TL 1410, REVIEWED BY: EM. EXAMINATION GENERAL EXAMINATION: GENERAL APPEARANCE:OBESE, UNCOMFORTABLE. PSYCHAFFECT NORMAL.ANXIOUS,FRUSTRATED. LUNGS:LUNG VALDES ARE CLEAR TO AUSCULTATION BILATERALLY. GOOD MOVEMENT OF AIR. HEART:S1, S2 IN A REGULAR RATE AND RHYTHM. NO SIGNIFICANT MURMURS, RUBS OR GALLOPS NOTED. LUMBAR SPINE/LOWER BACK: PALPATION:VERTEBRAL SPINE TENDERNESS, PARASPINAL TENDERNESS.SPECIFIC POINT TENDERNESS OVER LEFT SIJ . MOTOR SYSTEM:5/5 BLE . SENSORY EXAM:NORMAL BILATERAL LE . ASSESSMENTS SACROILIITIS - M46.1 (PRIMARY) LUMBAR DISC DISPLACEMENT WITHOUT MYELOPATHY - M51.26 TREATMENT SACROILIITIS STOP NORCO TABLET, 5-325 MG, 1, ORALLY, 1 Q 4-6H PRN FOR SEVERE PAIN EPISODES ONLY MDD4 #45 TAB SHOULD LAST 30 DAYS NOTES: LEFT SIJ,ANATOMY OF THE SACROILIAC JOINT MATERIAL WAS PRINTED, REVIEWED AND GIVEN TO PT. PROCEDURE CODES FA211 ESTABILISHED PATIENT [facility] CHARGE DISPOSITION & COMMUNICATION FOLLOW UP 2WK POST (REASON: LEFT SIJ) ELECTRONICALLY SIGNED BY RUBIN NUNEZ ON 02/26/2017 AT 03:26 PM EST DISCLAIMER : THIS IS A VISIT SUMMARY EXTRACTED FROM THE [employer] CHART. IT IS NOT A COPY OF THE [employer] PROGRESS NOTE. SALEEM
== END ==
LOC: M PAIN 14:00
PROVIDERS: ATTEND Nurse Practitioner Family
DX: M46.1 Sacroiliitis, not elsewhere classified (principal); M51.26 Other intervertebral disc displacement, lumbar region; E03.9 Hypothyroidism, unspecified; F17.210 Nicotine dependence, cigarettes, uncomplicated; Z79.891 Long term (current) use of opiate analgesic; Z79.899 Other long term (current) drug therapy; Z88.0 Allergy status to penicillin

== ENCOUNTER → 2017-03-11 | Outpatient (CLI) | payer OTHER ==
[2017-03-11 17:13] LABS: BASO # 0.1 10^3/uL (0.0-0.2); BASO % 1.2 % (0.0-1.0); EOS # 0.2 10^3/uL (0.0-0.50); EOS % 2.6 % (0.0-3.0); IMMATURE GRANULOCYTE % 0.3 % (0-0); LYMPH # 2.6 10^3/uL (1.5-4.5); LYMPH % 28.3 % (24.0-44.0); MEAN CORPUSCULAR HEMOGLOBIN 30.6 pg (27.0-33.0); MEAN CORPUSCULAR HGB CONC 32.6 g/dl (32.0-36.5); MEAN CORPUSCULAR VOLUME 93.9 fl (80.0-96.0); MONO # 0.8 10^3/uL (0.0-0.8); MONO % 9.1 % (0.0-5.0); NEUTROPHILS # 5.3 10^3/uL (1.8-7.7); NEUTROPHILS % 58.5 % (36.0-66.0); PLATELET COUNT, AUTOMATED 373 10^3/uL (150-450); RED CELL DISTRIBUTION WIDTH 13.9 % (11.5-14.5); WHITE BLOOD COUNT 9.1 10^3/uL (4.0-10.0)
[2017-03-11 19:02] LABS: ERYTHROCYTE SEDIMENTATION RATE 12 mm/hr (0-30)
== END ==
LOC: M WUC 14:14
DX: M25.561 Pain in right knee (principal)
CPT/HCPCS: 86140

== ENCOUNTER 2017-05-16 15:52 | Emergency (ER) | payer OTHER ==
[2017-05-16] MEDS: KETOROLAC 30 MG/ML VIAL (J1885) IM (19:15)
== END 2017-05-16 19:37 | disposition home or self-care (01) ==
LOC: M ED 15:52
DX: M25.551 Pain in right hip (principal); F17.200 Nicotine dependence, unspecified, uncomplicated; E03.9 Hypothyroidism, unspecified; M16.11 Unilateral primary osteoarthritis, right hip; Z88.0 Allergy status to penicillin; Z79.899 Other long term (current) drug therapy
CPT/HCPCS: J1885

== ENCOUNTER → 2017-06-04 | Outpatient (REF) | payer OTHER ==
[2017-06-04 20:10] LABS: HEMATOCRIT 43.9 % (36.0-47.0); HEMOGLOBIN 14.5 g/dl (12.0-16.0); MEAN CORPUSCULAR HEMOGLOBIN 31.3 pg (27.0-33.0); MEAN CORPUSCULAR VOLUME 94.8 fl (80.0-96.0); PLATELET COUNT, AUTOMATED 358 10^3/uL (150-450); RED BLOOD COUNT 4.63 10^6/uL (4.00-5.40); RED CELL DISTRIBUTION WIDTH 12.4 % (11.5-14.5); WHITE BLOOD COUNT 9.4 10^3/uL (4.0-10.0)
[2017-06-04 20:18] LABS: TOTAL 25(OH) VITAMIN D 13.3 NG/ML (30.0-100.0)
[2017-06-04 20:20] LABS: ALBUMIN 4.1 GM/DL (3.2-5.2); ALBUMIN/GLOBULIN RATIO 1.03 (1.00-1.93); ALKALINE PHOSPHATASE 107 U/L (45-117); ALT/SGPT 18 U/L (12-78); ANION GAP 7 MEQ/L (8-16); AST/SGOT 15 U/L (7-37); BILIRUBIN,TOTAL 0.3 MG/DL (0.2-1.0); BLOOD UREA NITROGEN 16 MG/DL (7-18); CALCIUM LEVEL 9.1 MG/DL (8.5-10.1); CARBON DIOXIDE LEVEL 28 MEQ/L (21-32); CHLORIDE LEVEL 103 MEQ/L (98-107); CHOLESTEROL LEVEL 290 MG/DL (<200); GLOMERULAR FILTRATION RATE > 60.0 (>51); GLUCOSE, FASTING 106 MG/DL (70-100); HDL CHOLESTEROL 47 MG/DL (>40); NON-HDL-C 243 MG/DL; RHEUMATOID FACTOR QUANT 30.5 IU/ML (<15.0); SODIUM LEVEL 138 MEQ/L (136-145); TOTAL PROTEIN 8.1 GM/DL (6.4-8.2); TRIGLYCERIDES LEVEL 407 MG/DL (<150)
[2017-06-04 21:18] LABS: ERYTHROCYTE SEDIMENTATION RATE 14 mm/hr (0-30)
[2017-06-07 00:06] LABS: ANTINUCLEAR ANTIBODIES DIRECT Negative (Negative); Lyme Disease IgG/IgM Antibodie <0.91 ISR (0.00-0.90); Lyme Disease IgM Ab Quantitati <0.80 index (0.00-0.79)
[2017-06-09 10:14] LABS: DRVV SCREEN 44.5 SEC
[2017-06-09 10:19] LABS: PTT LUPUS TYPE ANTICOAG SCREEN 1.1 (0-1.2)
== END ==
LOC: M SFHCADAM 16:16
DX: E66.01 Morbid (severe) obesity due to excess calories (principal); E78.2 Mixed hyperlipidemia; E89.0 Postprocedural hypothyroidism; E55.9 Vitamin D deficiency, unspecified; M25.50 Pain in unspecified joint
CPT/HCPCS: 84443

== ENCOUNTER → 2017-10-12 | Outpatient (REF) | payer OTHER ==
[2017-10-12 20:28] LABS: C REACTIVE PROTEIN QUANTITATIV 1.33 MG/DL (0.00-0.30)
[2017-10-12 20:32] LABS: TOTAL 25(OH) VITAMIN D 11.4 NG/ML (30.0-100.0)
[2017-10-12 20:58] LABS: FREE T4 0.28 NG/DL (0.76-1.46)
[2017-10-12 22:00] LABS: ERYTHROCYTE SEDIMENTATION RATE 27 mm/hr (0-30)
== END ==
LOC: M SFHCADAM 14:36
DX: M51.16 Intervertebral disc disorders with radiculopathy, lumbar region (principal)

== ENCOUNTER → 2017-11-26 | Outpatient (REF) | payer OTHER ==
[2017-11-26 17:51] LABS: CPK CREATINE PHOSPHOKINASE 122 U/L (26-192)
[2017-11-26 17:51] LABS: C REACTIVE PROTEIN QUANTITATIV 2.72 MG/DL (0.00-0.30)
[2017-11-26 20:12] LABS: ERYTHROCYTE SEDIMENTATION RATE 32 mm/hr (0-30)
[2017-12-01 00:08] LABS: CYCLIC CITRULLINATED PEPTIDE > 250 units (0-19)
== END ==
LOC: M SFHCLERA 14:03
DX: R76.8 Other specified abnormal immunological findings in serum (principal)

== ENCOUNTER → 2017-12-27 | Outpatient (CLI) | payer OTHER ==
[2017-12-27 18:24] LABS: FREE T4 1.27 NG/DL (0.76-1.46)
== END ==
LOC: M WUC 14:54
DX: E89.0 Postprocedural hypothyroidism (principal)
CPT/HCPCS: 84443

== ENCOUNTER → 2018-02-01 | Outpatient (CLI) | payer OTHER ==
[2018-02-01 17:18] LABS: FREE T4 1.25 NG/DL (0.76-1.46)
== END ==
LOC: M WUC 14:42
DX: E89.0 Postprocedural hypothyroidism (principal)
CPT/HCPCS: 84443

== ENCOUNTER → 2018-04-10 | Outpatient (CLI) | payer OTHER ==
[~2018-04-10] MED LIST changes: +IBUP80TA; -ISOVUE-M 300 61% 15ML VIAL (Q9967) As Ordered ONE; +LEVO200T4; -LIDOCAINE 1% SDV INJ 30 ML VIAL As Ordered ONE; +NAPR-885 PO; +TYLE325T5 PO; +TYLE650T35 PO; -diazePAM 5 MG TAB As Ordered ONE; -methylPREDNISolone SUSP 40 MG/ML (DEPO-medrol) VIAL (J1030) As Ordered ONE; -oxyCODONE 5MG TAB As Ordered ONE
[2018-04-10 13:49] LABS: BASO # 0.1 10^3/uL (0.0-0.2); BASO % 1.3 % (0.0-1.0); EOS # 0.2 10^3/uL (0.0-0.50); EOS % 2.9 % (0.0-3.0); HEMATOCRIT 47.2 % (36.0-47.0); HEMOGLOBIN 15.3 g/dl (12.0-15.5); LYMPH # 1.7 10^3/uL (1.5-4.5); LYMPH % 22.3 % (24.0-44.0); MEAN CORPUSCULAR HEMOGLOBIN 29.9 pg (27.0-33.0); MEAN CORPUSCULAR HGB CONC 32.4 g/dl (32.0-36.5); MEAN CORPUSCULAR VOLUME 92.4 fl (80.0-96.0); MONO # 0.9 10^3/uL (0.0-0.8); MONO % 11.7 % (0.0-5.0); NEUTROPHILS # 4.7 10^3/uL (1.8-7.7); NEUTROPHILS % 61.3 % (36.0-66.0); PLATELET COUNT, AUTOMATED 328 10^3/uL (150-450); RED BLOOD COUNT 5.11 10^6/uL (4.00-5.40); WHITE BLOOD COUNT 7.6 10^3/uL (4.0-10.0)
[2018-04-10 14:01] LABS: ALBUMIN 3.7 GM/DL (3.2-5.2); ALT/SGPT 19 U/L (12-78); BILIRUBIN,TOTAL 0.4 MG/DL (0.2-1.0); BLOOD UREA NITROGEN 12 MG/DL (7-18); CALCIUM LEVEL 8.9 MG/DL (8.5-10.1); CARBON DIOXIDE LEVEL 27 MEQ/L (21-32); CHLORIDE LEVEL 105 MEQ/L (98-107); CHOLESTEROL LEVEL 230 MG/DL (<200); CHOLESTEROL RISK RATIO 4.893 (<5); GLOMERULAR FILTRATION RATE > 60.0 (>51); GLUCOSE, FASTING 107 MG/DL (70-100); HDL CHOLESTEROL 47 MG/DL (>40); LDL CHOLESTEROL 145 MG/DL (<100); NON-HDL-C 183 MG/DL; POTASSIUM SERUM 4.4 MEQ/L (3.5-5.1); SODIUM LEVEL 139 MEQ/L (136-145); TOTAL PROTEIN 7.2 GM/DL (6.4-8.2); TRIGLYCERIDES LEVEL 191 MG/DL (<150)
[2018-04-10 14:19] LABS: MALB URINE SIEMENS 15.5 MG/L; MAU/CREAT RATIO 8.3 MCG/MG (0.0-30.0)
[2018-04-10 14:55] LABS: HEMOGLOBIN A1c 6.3 %
[2018-04-12 09:38] LABS: TOTAL 25(OH) VITAMIN D 22.3 NG/ML (30.0-100.0)
== END ==
LOC: M WUC 08:54
PROVIDERS: ATTEND Family Medicine
DX: E89.0 Postprocedural hypothyroidism (principal); E55.9 Vitamin D deficiency, unspecified; E66.01 Morbid (severe) obesity due to excess calories

== ENCOUNTER → 2018-04-28 | Outpatient (REF) | payer OTHER | LOC: M LAB REF 19:25 | PROVIDERS: ATTEND Physician Assistant | DX: R10.32 Left lower quadrant pain (principal) ==

== ENCOUNTER → 2018-04-28 | Outpatient (CLI) | payer OTHER ==
--- NOTE | 2018-04-28 17:24 | REP ---
KUB, ONE VIEW: HISTORY: Pain. Air is present in small and large intestine. There are no air fluid levels or dilated loops of intestine. There is no pneumoperitoneum. A mild amount of stool is present in the colon. IMPRESSION: Nonspecific bowel gas pattern. Electronically Signed by Benson Parker MD 04/29/2018 08:15 A
[2018-04-28 20:10] LABS: BASO # 0.1 10^3/uL (0.0-0.2); BASO % 0.7 % (0.0-1.0); EOS # 0.2 10^3/uL (0.0-0.50); EOS % 1.8 % (0.0-3.0); HEMATOCRIT 44.2 % (36.0-47.0); HEMOGLOBIN 14.7 g/dl (12.0-15.5); LYMPH # 2.2 10^3/uL (1.5-4.5); MEAN CORPUSCULAR HEMOGLOBIN 30.2 pg (27.0-33.0); MEAN CORPUSCULAR HGB CONC 33.3 g/dl (32.0-36.5); MEAN CORPUSCULAR VOLUME 90.9 fl (80.0-96.0); MONO # 1.2 10^3/uL (0.0-0.8); MONO % 12.2 % (0.0-5.0); NEUTROPHILS # 6.2 10^3/uL (1.8-7.7); NEUTROPHILS % 62.9 % (36.0-66.0); PLATELET COUNT, AUTOMATED 331 10^3/uL (150-450); RED BLOOD COUNT 4.86 10^6/uL (4.00-5.40); WHITE BLOOD COUNT 9.9 10^3/uL (4.0-10.0)
[2018-04-28 20:35] LABS: ALT/SGPT 19 U/L (12-78); AMYLASE 32 U/L (25-115); BILIRUBIN,TOTAL 0.3 MG/DL (0.2-1.0); BLOOD UREA NITROGEN 15 MG/DL (7-18); CALCIUM LEVEL 8.8 MG/DL (8.5-10.1); CARBON DIOXIDE LEVEL 28 MEQ/L (21-32); CHLORIDE LEVEL 101 MEQ/L (98-107); CREATININE FOR GFR 0.75 MG/DL (0.55-1.30); FREE T4 1.55 NG/DL (0.76-1.46); GLOMERULAR FILTRATION RATE > 60.0 (>51); GLUCOSE, FASTING 84 MG/DL (70-100); LIPASE 79 U/L (73-393); POTASSIUM SERUM 4.3 MEQ/L (3.5-5.1); SODIUM LEVEL 137 MEQ/L (136-145); TOTAL PROTEIN 7.8 GM/DL (6.4-8.2)
== END ==
LOC: M WUC 15:28
PROVIDERS: ATTEND Physician Assistant
DX: R10.32 Left lower quadrant pain (principal)

== ENCOUNTER → 2018-05-31 | Outpatient (CLI) | payer OTHER ==
[2018-05-31 19:31] LABS: BASO # 0.1 10^3/uL (0.0-0.2); BASO % 1.1 % (0.0-1.0); EOS # 0.3 10^3/uL (0.0-0.50); EOS % 3.3 % (0.0-3.0); HEMATOCRIT 42.9 % (36.0-47.0); HEMOGLOBIN 13.9 g/dl (12.0-15.5); LYMPH # 2.4 10^3/uL (1.5-4.5); LYMPH % 27.7 % (24.0-44.0); MEAN CORPUSCULAR HEMOGLOBIN 30.3 pg (27.0-33.0); MEAN CORPUSCULAR HGB CONC 32.4 g/dl (32.0-36.5); MEAN CORPUSCULAR VOLUME 93.5 fl (80.0-96.0); MONO # 1.2 10^3/uL (0.0-0.8); MONO % 14.2 % (0.0-5.0); NEUTROPHILS # 4.7 10^3/uL (1.8-7.7); NEUTROPHILS % 53.4 % (36.0-66.0); PLATELET COUNT, AUTOMATED 342 10^3/uL (150-450); RED BLOOD COUNT 4.59 10^6/uL (4.00-5.40); WHITE BLOOD COUNT 8.8 10^3/uL (4.0-10.0)
[2018-05-31 19:35] LABS: ALBUMIN 3.6 GM/DL (3.2-5.2); ALT/SGPT 24 U/L (12-78); BILIRUBIN,TOTAL 0.1 MG/DL (0.2-1.0); BLOOD UREA NITROGEN 14 MG/DL (7-18); C REACTIVE PROTEIN QUANTITATIV 1.57 MG/DL (0.00-0.30); CALCIUM LEVEL 8.9 MG/DL (8.5-10.1); CARBON DIOXIDE LEVEL 29 MEQ/L (21-32); CHLORIDE LEVEL 105 MEQ/L (98-107); CREATININE FOR GFR 0.65 MG/DL (0.55-1.30); GLOMERULAR FILTRATION RATE > 60.0 (>51); GLUCOSE, FASTING 99 MG/DL (70-100); POTASSIUM SERUM 4.2 MEQ/L (3.5-5.1); SODIUM LEVEL 141 MEQ/L (136-145); TOTAL PROTEIN 7.1 GM/DL (6.4-8.2)
[2018-05-31 20:16] LABS: ERYTHROCYTE SEDIMENTATION RATE 18 mm/hr (0-30)
== END ==
LOC: M WUC 16:01
PROVIDERS: ATTEND Internal Medicine Rheumatology
DX: M05.769 Rheumatoid arthritis with rheumatoid factor of unspecified knee without organ or systems involvement (principal)

== ENCOUNTER → 2018-07-11 | Outpatient (CLI) | payer OTHER ==
[2018-07-11 17:42] LABS: BASO # 0.1 10^3/uL (0.0-0.2); BASO % 1.4 % (0.0-1.0); EOS # 0.3 10^3/uL (0.0-0.50); EOS % 2.9 % (0.0-3.0); HEMATOCRIT 44.6 % (36.0-47.0); HEMOGLOBIN 14.8 g/dl (12.0-15.5); LYMPH # 2.1 10^3/uL (1.5-4.5); LYMPH % 23.5 % (24.0-44.0); MEAN CORPUSCULAR HEMOGLOBIN 30.7 pg (27.0-33.0); MEAN CORPUSCULAR HGB CONC 33.2 g/dl (32.0-36.5); MEAN CORPUSCULAR VOLUME 92.5 fl (80.0-96.0); MONO % 11.9 % (0.0-5.0); NEUTROPHILS # 5.3 10^3/uL (1.8-7.7); PLATELET COUNT, AUTOMATED 323 10^3/uL (150-450); RED BLOOD COUNT 4.82 10^6/uL (4.00-5.40); WHITE BLOOD COUNT 8.8 10^3/uL (4.0-10.0)
[2018-07-11 17:48] LABS: ALBUMIN 3.7 GM/DL (3.2-5.2); ALT/SGPT 22 U/L (12-78); BILIRUBIN,TOTAL 0.4 MG/DL (0.2-1.0); BLOOD UREA NITROGEN 14 MG/DL (7-18); CALCIUM LEVEL 8.8 MG/DL (8.5-10.1); CARBON DIOXIDE LEVEL 27 MEQ/L (21-32); CHLORIDE LEVEL 105 MEQ/L (98-107); CHOLESTEROL LEVEL 229 MG/DL (<200); CHOLESTEROL RISK RATIO 5.088 (<5); FREE T4 1.23 NG/DL (0.76-1.46); GLOMERULAR FILTRATION RATE > 60.0 (>51); GLUCOSE, FASTING 102 MG/DL (70-100); HDL CHOLESTEROL 45 MG/DL (>40); LDL CHOLESTEROL 141 MG/DL (<100); NON-HDL-C 184 MG/DL; POTASSIUM SERUM 4.3 MEQ/L (3.5-5.1); SODIUM LEVEL 139 MEQ/L (136-145); THYROID STIMULATING HORMONE 0.277 uIU/ML (0.358-3.740); TOTAL PROTEIN 7.1 GM/DL (6.4-8.2); TRIGLYCERIDES LEVEL 215 MG/DL (<150)
[2018-07-11 17:57] LABS: MALB URINE SIEMENS 6.5 MG/L; MAU/CREAT RATIO 6.3 MCG/MG (0.0-30.0)
[2018-07-12 09:37] LABS: TOTAL 25(OH) VITAMIN D 20.4 NG/ML (30.0-100.0)
== END ==
LOC: M WUC 08:40
PROVIDERS: ATTEND Physician Assistant Medical
DX: E78.2 Mixed hyperlipidemia (principal); E55.9 Vitamin D deficiency, unspecified; E89.0 Postprocedural hypothyroidism; E66.01 Morbid (severe) obesity due to excess calories

== ENCOUNTER → 2018-07-11 | Outpatient (CLI) | payer OTHER ==
[2018-07-11 17:42] LABS: BASO # 0.1 10^3/uL (0.0-0.2); BASO % 1.2 % (0.0-1.0); EOS # 0.2 10^3/uL (0.0-0.50); EOS % 2.7 % (0.0-3.0); HEMOGLOBIN 14.6 g/dl (12.0-15.5); LYMPH # 2.1 10^3/uL (1.5-4.5); LYMPH % 23.3 % (24.0-44.0); MEAN CORPUSCULAR HGB CONC 33.2 g/dl (32.0-36.5); MEAN CORPUSCULAR VOLUME 93.4 fl (80.0-96.0); MONO # 1.1 10^3/uL (0.0-0.8); MONO % 11.8 % (0.0-5.0); NEUTROPHILS # 5.5 10^3/uL (1.8-7.7); NEUTROPHILS % 60.7 % (36.0-66.0); PLATELET COUNT, AUTOMATED 317 10^3/uL (150-450); RED BLOOD COUNT 4.71 10^6/uL (4.00-5.40)
[2018-07-11 17:43] LABS: ALBUMIN 3.5 GM/DL (3.2-5.2); ALT/SGPT 23 U/L (12-78); BILIRUBIN,TOTAL 0.4 MG/DL (0.2-1.0); BLOOD UREA NITROGEN 14 MG/DL (7-18); C REACTIVE PROTEIN QUANTITATIV 1.61 MG/DL (0.00-0.30); CALCIUM LEVEL 8.6 MG/DL (8.5-10.1); CARBON DIOXIDE LEVEL 27 MEQ/L (21-32); CHLORIDE LEVEL 106 MEQ/L (98-107); CREATININE FOR GFR 0.74 MG/DL (0.55-1.30); GLOMERULAR FILTRATION RATE > 60.0 (>51); GLUCOSE, FASTING 100 MG/DL (70-100); POTASSIUM SERUM 4.3 MEQ/L (3.5-5.1); SODIUM LEVEL 139 MEQ/L (136-145); TOTAL PROTEIN 7.3 GM/DL (6.4-8.2)
[2018-07-11 18:26] LABS: ERYTHROCYTE SEDIMENTATION RATE 15 mm/hr (0-30)
== END ==
LOC: M WUC 08:36
PROVIDERS: ATTEND Internal Medicine Rheumatology
DX: M05.769 Rheumatoid arthritis with rheumatoid factor of unspecified knee without organ or systems involvement (principal)

== ENCOUNTER → 2018-09-01 | Outpatient (CLI) | payer OTHER ==
--- NOTE | 2018-09-01 12:19 | REP ---
Left rib series and PA chest: Left rib series of six views: There is no rib fracture or other rib abnormality. PA chest: Comparison is 03/20/2013. There is no pneumothorax, hemothorax or pulmonary contusion. There is no pleural thickening or pleural fluid collection. The lung parra are clear. Cardiac size is normal. The bro, mediastinum, skeletal structures are unremarkable. Impression: Negative PA chest. Electronically Signed by Delmer Gonzalez MD 09/01/2018 12:11 P
== END ==
LOC: M WUC 11:34
PROVIDERS: ATTEND Physician Assistant
DX: R07.1 Chest pain on breathing (principal)

== ENCOUNTER → 2019-09-15 | Outpatient (CLI) | payer BC ==
[2019-09-15 18:41] LABS: CK-MB VALUE MASS 1.1 NG/ML (<3.6); CPK CREATINE PHOSPHOKINASE 98 U/L (26-192); MB/CK RELATIVE INDEX 1.12 (< OR =4); TROPONIN I < 0.02 NG/ML (< 0.10)
== END ==
LOC: M LAB 17:04
PROVIDERS: ATTEND Physician Assistant Medical
DX: R07.9 Chest pain, unspecified (principal)

== ENCOUNTER → 2020-01-04 | Outpatient (REF) | payer BC ==
[~2020-01-04] MED LIST changes: +ACET650T61 PO; -TYLE650T35 PO
[2020-01-04 15:52] LABS: ALBUMIN 3.7 GM/DL (3.2-5.2); ALT/SGPT 31 U/L (12-78); BILIRUBIN,TOTAL 0.2 MG/DL (0.2-1.0); BLOOD UREA NITROGEN 15 MG/DL (7-18); C REACTIVE PROTEIN QUANTITATIV 1.44 MG/DL (0.00-0.30); CALCIUM LEVEL 9.2 MG/DL (8.5-10.1); CARBON DIOXIDE LEVEL 30 MEQ/L (21-32); CHLORIDE LEVEL 102 MEQ/L (98-107); CHOLESTEROL LEVEL 263 MG/DL (<200); CHOLESTEROL RISK RATIO 5.844 (<5); CREATININE FOR GFR 0.88 MG/DL (0.55-1.30); FREE T4 0.79 NG/DL (0.76-1.46); GLOMERULAR FILTRATION RATE > 60.0 (>51); GLUCOSE, FASTING 116 MG/DL (70-100); HDL CHOLESTEROL 45 MG/DL (>40); LDL CHOLESTEROL 167 MG/DL (<100); NON-HDL-C 218 MG/DL; POTASSIUM SERUM 4.2 MEQ/L (3.5-5.1); SODIUM LEVEL 138 MEQ/L (136-145); TOTAL PROTEIN 7.4 GM/DL (6.4-8.2); TRIGLYCERIDES LEVEL 254 MG/DL (<150)
[2020-01-04 15:55] LABS: CREATININE, URINE 68.9 MG/DL; MALB URINE SIEMENS < 5.0 MG/L; MAU/CREAT RATIO 7.2 MCG/MG (0.0-30.0)
[2020-01-04 15:57] LABS: HEMOGLOBIN A1c 5.9 %
[2020-01-04 16:47] LABS: TOTAL 25(OH) VITAMIN D 18.2 NG/ML (30.0-100.0)
== END ==
LOC: M PLALAB 11:27
PROVIDERS: ATTEND Physician Assistant Medical
DX: M05.769 Rheumatoid arthritis with rheumatoid factor of unspecified knee without organ or systems involvement (principal); E89.0 Postprocedural hypothyroidism; E55.9 Vitamin D deficiency, unspecified; E78.2 Mixed hyperlipidemia; E66.01 Morbid (severe) obesity due to excess calories

== ENCOUNTER → 2020-05-06 | Outpatient (CLI) | payer BC ==
[2020-05-06 12:58] LABS: BASO # 0.1 10^3/uL (0.0-0.2); BASO % 0.9 % (0.0-1.0); EOS # 0.2 10^3/uL (0.0-0.5); HEMATOCRIT 46.4 % (36.0-47.0); HEMOGLOBIN 15.3 g/dl (12.0-15.5); LYMPH # 2.1 10^3/uL (1.5-5.0); LYMPH % 21.1 % (24.0-44.0); MEAN CORPUSCULAR HEMOGLOBIN 30.7 pg (27.0-33.0); MONO # 1.3 10^3/uL (0.0-0.8); MONO % 12.8 % (2.0-8.0); NEUTROPHILS # 6.3 10^3/uL (1.5-8.5); NEUTROPHILS % 62.8 % (36.0-66.0); PLATELET COUNT, AUTOMATED 328 10^3/uL (150-450); RED BLOOD COUNT 4.99 10^6/uL (4.00-5.40); WHITE BLOOD COUNT 10.1 10^3/uL (4.0-10.0)
[2020-05-06 13:31] LABS: ALBUMIN 3.7 GM/DL (3.2-5.2); ALT/SGPT 33 U/L (12-78); BILIRUBIN,TOTAL 0.2 MG/DL (0.2-1.0); BLOOD UREA NITROGEN 14 MG/DL (7-18); CALCIUM LEVEL 9.2 MG/DL (8.5-10.1); CARBON DIOXIDE LEVEL 25 MEQ/L (21-32); CHLORIDE LEVEL 104 MEQ/L (98-107); CK-MB VALUE MASS < 1.0 NG/ML (<3.6); CPK CREATINE PHOSPHOKINASE 83 U/L (26-192); GLOMERULAR FILTRATION RATE > 60.0 (>51); GLUCOSE, FASTING 90 MG/DL (70-100); SODIUM LEVEL 138 MEQ/L (136-145); TOTAL PROTEIN 7.7 GM/DL (6.4-8.2); TROPONIN I < 0.02 NG/ML (< 0.10)
--- NOTE | 2020-05-06 14:28 | REP ---
INDICATION: CHEST PAIN ON BREATHING/ LABS FIRST. COMPARISON: PA chest 09/01/2018, PA lateral 03/20/2013 TECHNIQUE: Two views FINDINGS: Lung parra are well inflated. Some minor basilar interstitial changes without pleural effusion, lateral pleural plaque, acute infiltrate, parenchymal mass, pulmonary nodule or pneumothorax. The heart, mediastinal and hilar contours were normal. The aorta and airway normal. Bony thorax shows marginal osteophytes without acute compression deformity or focal lesion. Visualized clavicles, ribs, scapulae and humeral heads were unremarkable. No free air under the diaphragm. IMPRESSION: 1. Some minor basilar interstitial changes without acute infiltrate, effusion, cardiomegaly, edema or other significant finding. <Electronically signed by Miguel Angel Reyna > 05/06/20 [id number]
== END ==
LOC: M LAB 12:27
PROVIDERS: ATTEND Physician Assistant
DX: R07.1 Chest pain on breathing (principal); Z72.0 Tobacco use

== ENCOUNTER → 2020-07-16 | Outpatient (REF) | payer BC ==
[2020-07-16 19:38] LABS: FREE T4 0.77 NG/DL (0.76-1.46); THYROID STIMULATING HORMONE 18.2 uIU/ML (0.358-3.740)
== END ==
LOC: M SFHCADAM 16:12
PROVIDERS: ATTEND Physician Assistant Medical
DX: E89.0 Postprocedural hypothyroidism (principal); Z12.11 Encounter for screening for malignant neoplasm of colon

== ENCOUNTER 2020-09-20 15:37 | Emergency (ER) | payer BC ==
[~2020-09-20] VITALS: Ht 154.9 cm; Wt 105.0 kg
[2020-09-20] MEDS ORDERED: LEVO25TA5 (16:07)
[2020-09-20] MEDS ORDERED: METF-838 (16:07)
[2020-09-20 18:33] LABS: APPEARANCE, URINE HAZY (CLEAR); BACTERIA, URINE AUTO NEGATIVE (NEGATIVE); BILIRUBIN, URINE AUTO NEGATIVE (NEGATIVE); BLOOD, URINE BLOOD 1+ (NEGATIVE); COLOR, URINE YELLOW (YELLOW); GLUCOSE, URINE (UA) AUTO NEGATIVE (NEGATIVE); KETONE, URINE AUTO NEGATIVE (NEGATIVE); LEUKOCYTE ESTERASE, URINE AUTO TRACE (NEGATIVE); NITRITE, URINE AUTO NEGATIVE (NEGATIVE); PROTEIN, URINE AUTO NEGATIVE (NEGATIVE); RBC, URINE AUTO 3 /HPF (0-3); SPECIFIC GRAVITY URINE AUTO 1.013 (1.002-1.035); SQUAMOUS EPITHELIAL CELL UR AU 6 /HPF (0-6); UROBILINOGEN, URINE AUTO 0.2 mg/dL (0.0-2.0); WBC, URINE AUTO 1 /HPF (0-3)
[2020-09-20 18:35] LABS: BASO # 0.1 10^3/uL (0.0-0.2); BASO % 1.2 % (0.0-1.0); EOS # 0.3 10^3/uL (0.0-0.5); EOS % 3.1 % (0.0-3.0); HEMOGLOBIN 16.2 g/dl (12.0-15.5); LYMPH # 2.1 10^3/uL (1.5-5.0); LYMPH % 20.7 % (24.0-44.0); MEAN CORPUSCULAR HEMOGLOBIN 30.7 pg (27.0-33.0); MEAN CORPUSCULAR HGB CONC 32.4 g/dl (32.0-36.5); MEAN CORPUSCULAR VOLUME 94.7 fl (80.0-96.0); MONO # 1.1 10^3/uL (0.0-0.8); MONO % 10.5 % (2.0-8.0); NEUTROPHILS # 6.6 10^3/uL (1.5-8.5); NEUTROPHILS % 63.8 % (36.0-66.0); PLATELET COUNT, AUTOMATED 331 10^3/uL (150-450); RED BLOOD COUNT 5.28 10^6/uL (4.00-5.40); WHITE BLOOD COUNT 10.3 10^3/uL (4.0-10.0)
--- NOTE | 2020-09-20 19:15 | REP ---
INDICATION: bilateral leg swelling, red, warm thigh R COMPARISON: None. TECHNIQUE: Villeda scale and color Doppler evaluation using linear high frequency transducer. FINDINGS: Limited ultrasound examination of the right and left lower extremity deep venous structures from the common femoral vein through the popliteal veins demonstrates normal flow patterns without evidence for deep venous thrombosis. Evaluation of the calf veins with incomplete due to significant swelling and technical factors. IMPRESSION: No evidence for deep venous thrombosis involving the bilateral common femoral to popliteal veins. <Electronically signed by Jax Montoya > 09/20/20 [id number]
[2020-09-20] MEDS ORDERED: ISOVUE-370 76% 100ML VIAL As Ordered ONE (19:53)
--- NOTE | 2020-09-20 21:46 | REPVR ---
PROCEDURE INFORMATION: Exam: CTA Right Lower Extremity With Contrast Exam date and time: 09/20/2020 8:08 PM Age: 55 years old Clinical indication: Other: Poor capillary refill foot, leg swelling, cool toes, R side TECHNIQUE: Imaging protocol: CTA images of the Right lower extremity with intravenous contrast using CT angiography protocol. 3D rendering (Not supervised by radiologist): MIP and/or 3D reconstructed images were created by the technologist. Radiation optimization: All CT scans at this facility use at least one of these dose optimization techniques: automated exposure control; mA and/or kV adjustment per patient size (includes targeted exams where dose is matched to clinical indication); or iterative reconstruction. Contrast material: ISOVUE 370; Contrast volume: 100 ml; Contrast route: INTRAVENOUS (IV); COMPARISON: US Duplex, Ext LOWER veins, bilat 09/20/2020 6:44 PM FINDINGS: Aorta: Moderate atherosclerotic changes in the distal abdominal aorta. No aneurysm, occlusion, or dissection. Right iliac arteries: Mild atherosclerotic changes demonstrated in the right internal iliac artery without significant stenosis. No evidence of a aneurysm in the right iliac arteries. Right femoral/popliteal arteries: Mild atherosclerotic changes in the right common femoral artery without significant stenosis. Normal appearance of the right profunda femoris artery. Mild atherosclerotic changes in the right superficial femoral artery without evidence of a moderate to high-grade stenosis. Mild atherosclerotic changes in the right popliteal artery without significant stenosis. Right infrapopliteal arteries: Normal appearance of the right infrapopliteal arteries without evidence of occlusion. Dorsalis pedis artery is visualized. Left iliac arteries: Mild atherosclerotic changes demonstrated in the left internal iliac artery without significant stenosis. Left iliac arteries otherwise unremarkable. Left femoral/popliteal arteries: Mild atherosclerotic changes in the left common femoral artery without significant stenosis. Mild atherosclerotic changes in the left superficial superficial femoral artery without significant stenosis. Unremarkable profunda femoris arteries. Unremarkable left popliteal artery. Left infrapopliteal arteries: Normal appearance of the left infrapopliteal arteries. Dorsalis pedis artery not well visualized, likely related to technique. Stomach and bowel: Mild diverticulosis is present in the distal colon. No diverticulitis. Bones/joints: Moderate to severe central spinal stenosis L3-L4 and moderate central spinal stenosis L4-L5. No acute fracture. No dislocation. Soft tissues: Subcutaneous edema demonstrated in both legs. IMPRESSION: 1. Mild diverticulosis is present in the distal colon. No diverticulitis. 2. Moderate atherosclerotic changes in the distal abdominal aorta without evidence of aneurysm, occlusion or dissection. 3. Mild atherosclerotic changes in the right and left iliac arteries without significant narrowing. 4. Mild atherosclerotic changes in the common femoral and superficial femoral arteries bilaterally as well as the right popliteal artery. 5. Normal appearance of both right and left infrapopliteal arteries with three-vessel runoff bilaterally. 6. Bilateral lower leg edema. Electronically signed by: Pernell Ugalde On 09/20/2020 21:45:50 PM
[2020-09-20] MEDS ORDERED: LASI40TA9 PO (22:19)
[2020-09-20 22:20] VITALS: BP 154/88
[2020-09-20] MEDS ORDERED: FUROSEMIDE 40 MG TAB PO ONE (22:20)
--- NOTE | 2020-09-21 07:55 | ED PDOC ---
Post-Departure Follow-Up radiology report faxed to [facility] Sarah MD Sep 21, 2020 07:55
== END 2020-09-20 22:26 | disposition home or self-care (01) ==
LOC: M ED 15:37
DX: R22.43 Localized swelling, mass and lump, lower limb, bilateral (principal); K57.30 Diverticulosis of large intestine without perforation or abscess without bleeding; I25.10 Atherosclerotic heart disease of native coronary artery without angina pectoris; E11.9 Type 2 diabetes mellitus without complications; E03.9 Hypothyroidism, unspecified; F17.200 Nicotine dependence, unspecified, uncomplicated; Z88.0 Allergy status to penicillin; Z79.899 Other long term (current) drug therapy; Z79.890 Hormone replacement therapy
CPT/HCPCS: 36415; 73706; 81001; 85025; 93970; 99284; Q9967

== ENCOUNTER → 2020-10-01 | Outpatient (REF) | payer BC ==
[~2020-10-01] MED LIST changes: +LASI40TA9 PO; +LEVO25TA5; +METF-838
== END ==
LOC: M SFHCADAM 16:06
PROVIDERS: ATTEND Physician Assistant Medical
DX: E89.0 Postprocedural hypothyroidism (principal)

== ENCOUNTER → 2020-10-17 | Outpatient (CLI) | payer BC ==
--- NOTE | 2020-10-17 15:27 | REP ---
INDICATION: PAIN IN RIGHT KNEE. COMPARISON: None. TECHNIQUE: Standing bilateral AP view of the knees FINDINGS: There is bilateral advanced medial compartmental narrowing and marginal osteophytosis with subchondral sclerosis. There is no fracture, dislocation, or subluxation. There is a mixed density bony lesion in the proximal lateral tibial metaphysis on the left seen also in the proximal medial fibular head. IMPRESSION: 1. Chronic changes seen bilaterally. 2. Proximal tibial and proximal fibular bone lesions. There are no prior left knee plain film examinations for comparison. MRI is recommended for further evaluation. <Electronically signed by Kailash Ramos > 10/17/20 [id number]
== END ==
LOC: M SOG 14:45
PROVIDERS: ATTEND Orthopaedic Surgery Adult Reconstructive Orthopaedic Surgery
DX: M25.561 Pain in right knee (principal)

== ENCOUNTER → 2020-11-02 | Outpatient (CLI) | payer BC ==
--- NOTE | 2020-11-02 16:56 | REP ---
INDICATION: LT LEG FINDING MIXED DENSITY BONE LESION. COMPARISON: Radiographs 10/17/2020. TECHNIQUE: Multiple sequences obtained in the axial, coronal and sagittal planes. FINDINGS: Menisci: There is a tear of the body and posterior horn of the medial meniscus. Cruciate ligaments: Intact. Collateral ligaments: Intact. Extensor mechanism/patellar retinacula: Intact. Cartilage: There is relatively moderate degree of diffuse chondromalacia globally. Bone marrow: A lobulated heterogeneous complex cystic lesion is seen at the proximal tibiofibular articulation, involving the bone of the proximal lateral tibia and the adjacent proximal fibula. This measures approximately 4.2 x 2.6 x 3.2 cm. The intra osseous margins are somewhat ill-defined. In the distal femoral diaphysis there appears to be intramedullary residual red marrow and possibly a small bone infarct. Joint fluid: There is a small joint effusion. Popliteal region: No cyst. IMPRESSION: Lobulated heterogeneous complex cystic mass at the proximal tibiofibular articulation, involves the proximal end of the tibia laterally and also the adjacent fibular head. The intra osseous margins are somewhat ill-defined. The lesion is somewhat worrisome, but differential diagnostic possibilities include both benign and malignant etiologies, including sarcoma. If no intervention is planned, further evaluation is recommended with MRI with gadolinium. There is a tear of the body and posterior horn of the medial meniscus. There is moderate diffuse chondromalacia. There is a small joint effusion. <Electronically signed by Delmer Villeda > 11/02/20 [id number]
== END ==
LOC: M PLARAD 13:03
PROVIDERS: ATTEND Orthopaedic Surgery Adult Reconstructive Orthopaedic Surgery
DX: M85.80 Other specified disorders of bone density and structure, unspecified site (principal)

== ENCOUNTER → 2020-12-03 | Outpatient (REF) | payer BC ==
[2020-12-03 18:18] LABS: BASO # 0.1 10^3/uL (0.0-0.2); EOS # 0.2 10^3/uL (0.0-0.5); EOS % 1.7 % (0.0-3.0); HEMATOCRIT 45.9 % (36.0-47.0); HEMOGLOBIN 14.7 g/dl (12.0-15.5); LYMPH # 2.3 10^3/uL (1.5-5.0); MEAN CORPUSCULAR HEMOGLOBIN 30.8 pg (27.0-33.0); MONO % 9.6 % (2.0-8.0); NEUTROPHILS # 7.2 10^3/uL (1.5-8.5); NEUTROPHILS % 65.8 % (36.0-66.0); PLATELET COUNT, AUTOMATED 409 10^3/uL (150-450); RED BLOOD COUNT 4.78 10^6/uL (4.00-5.40); WHITE BLOOD COUNT 10.9 10^3/uL (4.0-10.0)
[2020-12-03 18:56] LABS: MALB URINE SIEMENS 6.7 MG/L; MAU/CREAT RATIO 5.8 MCG/MG (0.0-30.0)
[2020-12-03 19:20] LABS: ALBUMIN 3.7 GM/DL (3.2-5.2); ALT/SGPT 15 U/L (12-78); BILIRUBIN,TOTAL 0.3 MG/DL (0.2-1.0); BLOOD UREA NITROGEN 12 MG/DL (7-18); CALCIUM LEVEL 9.3 MG/DL (8.5-10.1); CARBON DIOXIDE LEVEL 30 MEQ/L (21-32); CHLORIDE LEVEL 100 MEQ/L (98-107); CHOLESTEROL LEVEL 285 MG/DL (<200); CHOLESTEROL RISK RATIO 7.125 (<5); CREATININE FOR GFR 0.91 MG/DL (0.55-1.30); GLOMERULAR FILTRATION RATE > 60.0 (>51); GLUCOSE, FASTING 109 MG/DL (70-100); HDL CHOLESTEROL 40 MG/DL (>40); LDL CHOLESTEROL 166 MG/DL (<100); NON-HDL-C 245 MG/DL; POTASSIUM SERUM 4.2 MEQ/L (3.5-5.1); SODIUM LEVEL 137 MEQ/L (136-145); TOTAL 25(OH) VITAMIN D 15.7 NG/ML (30.0-100.0); TOTAL PROTEIN 8.1 GM/DL (6.4-8.2); TRIGLYCERIDES LEVEL 396 MG/DL (<150)
== END ==
LOC: M SFHCADAM 14:11
PROVIDERS: ATTEND Physician Assistant Medical
DX: E78.2 Mixed hyperlipidemia (principal); R73.03 Prediabetes; E55.9 Vitamin D deficiency, unspecified; E89.0 Postprocedural hypothyroidism

== ENCOUNTER 2021-01-21 13:58 | Outpatient (RCR) | payer BC ==
[~2021-01-21 13:58] MED LIST changes: +LEVO200T4 PO; +TRAM50TA2 PO
[2021-02-06] MEDS ORDERED: HYDR-3715 PO (08:41)
[2021-02-06] MEDS ORDERED: ASPI-551 PO (08:41)
[2021-02-06] MEDS ORDERED: FERR1TAB8 PO (08:41)
[2021-02-06] MEDS ORDERED: COLA100C5 PO (08:41)
== END 2021-02-12 ==
LOC: M PT 13:58
PROVIDERS: ATTEND Orthopaedic Surgery Adult Reconstructive Orthopaedic Surgery
DX: Z47.89 Encounter for other orthopedic aftercare (principal); Z96.651 Presence of right artificial knee joint; M17.11 Unilateral primary osteoarthritis, right knee

== ENCOUNTER → 2021-01-25 | Outpatient (REF) | payer BC ==
[2021-01-25 17:22] LABS: BASO # 0.1 10^3/uL (0.0-0.2); BASO % 1.1 % (0.0-1.0); EOS # 0.1 10^3/uL (0.0-0.5); EOS % 1.5 % (0.0-3.0); HEMATOCRIT 46.3 % (36.0-47.0); HEMOGLOBIN 14.8 g/dl (12.0-15.5); LYMPH # 2.4 10^3/uL (1.5-5.0); LYMPH % 25.9 % (24.0-44.0); MEAN CORPUSCULAR HEMOGLOBIN 30.1 pg (27.0-33.0); MEAN CORPUSCULAR VOLUME 94.3 fl (80.0-96.0); MONO # 1.3 10^3/uL (0.0-0.8); MONO % 13.8 % (2.0-8.0); NEUTROPHILS # 5.2 10^3/uL (1.5-8.5); NEUTROPHILS % 57.3 % (36.0-66.0); PLATELET COUNT, AUTOMATED 393 10^3/uL (150-450); RED BLOOD COUNT 4.91 10^6/uL (4.00-5.40); WHITE BLOOD COUNT 9.1 10^3/uL (4.0-10.0)
[2021-01-25 17:48] LABS: ALBUMIN 3.5 GM/DL (3.2-5.2); ALT/SGPT 20 U/L (12-78); BILIRUBIN,TOTAL 0.1 MG/DL (0.2-1.0); BLOOD UREA NITROGEN 17 MG/DL (7-18); CALCIUM LEVEL 9.5 MG/DL (8.5-10.1); CARBON DIOXIDE LEVEL 29 MEQ/L (21-32); CHLORIDE LEVEL 100 MEQ/L (98-107); CREATININE FOR GFR 0.78 MG/DL (0.55-1.30); GLOMERULAR FILTRATION RATE > 60.0 (>51); GLUCOSE, FASTING 92 MG/DL (70-100); POTASSIUM SERUM 4.4 MEQ/L (3.5-5.1); SODIUM LEVEL 137 MEQ/L (136-145)
== END ==
LOC: M SFHCADAM 14:24
PROVIDERS: ATTEND Physician Assistant Medical
DX: Z01.818 Encounter for other preprocedural examination (principal); M17.11 Unilateral primary osteoarthritis, right knee

== ENCOUNTER → 2021-01-31 | Outpatient (CLI) | payer BC | LOC: M LABSMTC 09:45 | PROVIDERS: ATTEND Anesthesiology | DX: Z01.818 Encounter for other preprocedural examination (principal); Z11.52 Encounter for screening for COVID-19 ==

== ENCOUNTER → 2021-01-31 | Outpatient (CLI) | payer BC ==
--- NOTE | 2021-01-31 10:31 | REP ---
INDICATION: RT KNEE OSTO PER OP KNEE. COMPARISON: None. TECHNIQUE: 3 x 3 mm increments using helical technique through the right hip, right knee, and right ankle. Jarrod protocol FINDINGS: At the hip: The hip joint space is symmetric and relatively well maintained. The femoral head is spherical in shape. There is no prominent marginal osteophytosis. There is no evidence of subchondral sclerosis or subchondral cyst formation. There is no fracture, dislocation, or subluxation. At the knee: There is tricompartmental marginal osteophytosis with asymmetric patellofemoral joint space narrowing and medial compartmental narrowing. This is moderate to severe in appearance. There is medial compartmental subchondral sclerosis. There is no discernible subchondral cyst formation. There is no fracture, dislocation, or subluxation. At the ankle: The mortise is intact. There is no evidence of marginal osteophytosis. The subtalar joints are within normal limits. Tiny plantar and retrocalcaneal heel spurs are evident. There is no acute fracture, dislocation, or subluxation. IMPRESSION: Degenerative changes involving the right knee as described above. <Electronically signed by Kailash Ramos > 01/31/21 [id number]
== END ==
LOC: M RAD 08:52
PROVIDERS: ATTEND Orthopaedic Surgery Adult Reconstructive Orthopaedic Surgery
DX: M17.11 Unilateral primary osteoarthritis, right knee (principal)

== ENCOUNTER 2021-02-05 06:12 | Observation (INO) | payer BC ==
[2021-02-05] VITALS (7 sets, daily range): BP systolic 148–163; BP diastolic 82–89
[~2021-02-05] VITALS: Ht 154.9 cm; Wt 100.2 kg
[~2021-02-05 06:12] MED LIST changes: +ACETAMINOPHEN 500 MG TAB PO ONE; +NAPROXEN 250 MG TAB PO ONE; +NS 1,000 ML IV ONE; +PREGABALIN 25 MG CAP (LYRICA) PO ONE; +ROPIVA 125MG/EPINEPH 0.25MG/CLONID 40MCG/KETOR 15MG IN NS 50ML SYRINGE PA ONE; +TRANEXAMIC ACID INJection 1,000 MG in NS 50 ML IV ONE; +dexameTHASONE 4 MG/ML 1ML VIAL (J1100 PER 1MG) IV ONE
[2021-02-05] MEDS ORDERED: LR 1,000 ML IV ONE (06:50)
[2021-02-05] MEDS ORDERED: TRANEXAMIC ACID 100 MG/ML 10ML VIAL As Ordered ONE (07:09)
[2021-02-05] MEDS ORDERED: VANCOMYCIN 1000MG/20ML VIAL As Ordered ONE (07:09)
[2021-02-05] MEDS ORDERED: MIDAZOLAM INJ 2MG/2ML VIAL (J2250 PER 1MG) As Ordered ONE (07:20)
[2021-02-05] MEDS ORDERED: LIDOCAINE 2% 100MG/5ML SDV (FOR ANES.) As Ordered ONE (07:20)
[2021-02-05] MEDS ORDERED: propofoL 200 MG/20 ML VIAL As Ordered ONE (07:20)
[2021-02-05] MEDS ORDERED: fentaNYL 100 MCG/2 ML INJECTION (J3010) As Ordered ONE (07:20)
[2021-02-05] MEDS ORDERED: ROCURONIUM BROMIDE 50 MG/5 ML VIAL As Ordered ONE (07:20)
[2021-02-05] MEDS ORDERED: VANCOMYCIN HCL 1,000 MG, VIAL MATE ADAPTER 1 EACH in NS 250 ML IV ONE (07:30)
[2021-02-05] MEDS ORDERED: propofoL 500 MG/50 ML VIAL As Ordered ONE ×2 (07:57→09:11)
[2021-02-05] MEDS ORDERED: PHENYLephrine 500MCG 5ML (100MCG/ML) SYRINGE As Ordered ONE (08:28)
[2021-02-05] MEDS ORDERED: ePHEDrine SULFATE 25 MG/5 ML(5MG/ML) SYRINGE As Ordered ONE (09:33)
[2021-02-05] MEDS ORDERED: KETOROLAC 60MG 2ML VIAL As Ordered ONE (09:55)
[2021-02-05] MEDS ORDERED: ONDANSETRON 4MG/2ML VIAL As Ordered ONE (09:56)
--- NOTE | 2021-02-05 10:46 | REP ---
INDICATION: PLACEMENT COMPARISON: None. TECHNIQUE: AP and cross-table lateral views. FINDINGS: Normal appearance and positioning to the patellar, femoral and tibial components. Overlying postsurgical changes and skin patrick noted. IMPRESSION: Status post right knee replacement. <Electronically signed by Jax Montoya > 02/05/21 1049
--- NOTE | 2021-02-05 10:52 | ROOPDOC ---
[facility] Report Of Operation Report of Operation DATE OF PROCEDURE: 02/05/21 PREPROCEDURE DIAGNOSES: Right knee osteoarthritis POSTPROCEDURE DIAGNOSES:Right knee osteoarthritis with Rheumatoid Arthrtitis; patella baja; tibia vara PROCEDURE PERFORMED: Right [facility] total knee SURGEON: Wendy Wang MD BRAZER RESISTANCE: Kerline Ghotra PA-C ANESTHESIA: Spinal. ESTIMATED BLOOD LOSS: Approximately less than 150 ml COMPLICATIONS: No known complications. REMARKS: Patient was seen in the preoperative area and her right knee was marked. Consent was reviewed for the Jarrod right total knee arthroplasty as well. Risks and benefits were discussed as previously described. Components: Sokoathlon system press fit 29 mm patella cemented Size 2 tibia press-fit and size 3 femur PS press fit 10 mm PS polyethylene FINDINGS: Tricompartmental RA right knee; tibia vara; patella baja SPECIMENS REMOVED: None PROCEDURE NOTE: The patient was seen in the preoperative area and her status was updated. [facility] plan was reviewed prior to surgery and adjusted appropriately. DESCRIPTION OF PROCEDURE: Patient was taken to the operating room and after a checklist was performed, the underwent a spinal anesthetic. The patient was then placed supine. The operative leg was then cleansed with chlorhexidine wash followed by 2 times alcohol swab followed by hydrogen peroxide wash. 2 chlorhexidine prep once were then used to clean the leg. The operative extremity was then prepped and draped in the standard sterile fashion. This was done utilizing the Jarrod leg ellis device. A surgical pause was then carried out followed by the surgical safety checklist. 2 stab hole incisions were made approximately 4 fingerbreadths below the tibial tubercle of the left knee for the tibial array pins which were placed. The midline incision over the knee followed by the medial arthrotomy was then carried out. Cautery was used to control bleeders. The soft tissue and fat pad were removed using electrocautery. The femoral array pins were then placed in the medial femoral condyle. The arrays were then placed over the array pins and points to be utilized as the trackers were marked on the arrays. The hip center was checked followed by the medial and lateral condyles of the ankle. The registration of the femur and tibia then occurred using the arrays in the Jarrod system. Osteophytes were removed at this point, as needed. The leg was then brought into extension and varus and valgus stresses were applied in extension and spoons were used for tensioning as well as a Moss in flexion of approximately 95 degrees. Once the soft tissue adjustments were made to the Jarrod plan, the plan was carried out utilizing the robot. Some varus persisted due to patient's tibia vara The 90 degree blade cuts were made first followed by the straight blade cuts. Once all the cuts were completed with the assistance of the Jarrod robot, the rongeur and osteotome were used to remove the bone segments. A lamina vp respiratory was used to help remove the medial lateral menisci remnants followed by a curved osteotome to remove any posterior osteophytes from the medial or lateral femoral condyles. A trial femur was placed and secured with a pin. The tibial component was then placed with a 9 mm polyinsert. This was brought into extension and found to have some lateral opening in extension. There was still some mild lateral instability and the decision was made to convert to PS component. The PS block was affixed and the osteotome and reciprocating saw were used to remove the box cut. The lug holes were drilled appropriately. After conversion to the PS component it appeared that 10 mm PS component would be appropriate. The leg was then brought into extension and the patella was measured using the caliper. A freehand cut using towel clips was used to remove the patellar surface. This was then clamped and reamed appropriately for the press-fit components. A trial was placed and taken through range of motion and found to be relatively stable. The tibia was then appropriately positioned with the correct amount of rotation lined up with the medial third of the tibial tubercle. This was pinned and the keel punch was completed followed by the four-point reaming for the press-fit component. The RE CK local anesthetic cocktail was instilled in the standard fashion. The wound was thoroughly irrigated with pulse lavage. The tibia was then press-fit in position using the mallet and impactors. The femur was then flexed high and positioned aligning the lug holes. This component was impacted then brought out into 90 degrees and impacted further to avoid anywhere to the metal components. The femoral component was placed and impacted and reimpacted. The 10 mm trial was placed. The press-fit patella was attached to the patella under pressure. The final 10 mm PS poly was placed and impacted The arrays and array pins were removed at this point Topical tranexamic acid was allowed to sit in the wound for approximately 3 minutes with the leg sitting in extension and the cement drying. The leg was taken through stable range of motion. It was thoroughly irrigated. Electrocautery was used to control any bleeders. A layered closure using #1 Vicryl followed by strata fix for the arthrotomy. #1 Vicryl to close down the subcutaneous tissue followed by running subcutaneous 2.0 and then a three-point 0 Monocryl subcuticular stitch antibacterial for the pinholes incisions at the tibia level. Zipline closure with dermabond was used. Layered irrigation with saline and Betadine occurred. Mepilex dressing was applied. ABD pads and Pancho wrap were applied. Patient tolerated the procedure well with no known complications. They were taken to the recovery room in stable condition. The patient will be admitted to the hospitalist service with plan for evaluation with physical therapy and possible discharge home tomorrow. Discharge Instructions Total Knee Arthroplasty 1. Pain: You may take oxycodone as prescribed for pain. Supplement with Naproxen and Tylenol as needed. Ice pack to operative knee as tolerated. 2. Wound care: Remove dressing on postop day 7. Call [phone] with any questions or concerns. Hygiene: The patient may shower. No tub baths. Check dressing seal prior to bathing. 3. Activity: WBAT left lower extremity. Front wheeled walker versus crutches for ambulation. Fall precautions. 4. Driving: No driving until cleared by your surgeon. Do not drive if taking narcotic pain medications as these may make you drowsy. 5. DVT Prophylaxis: Continue taking aspirin 81 mg p.o. twice daily as prescribed for the prevention of blood clots. Ankle pumps every 1 hour while awake. BAN hose at all times for 1 month after surgery. May remove for hygiene and wound care. 6. Placement: Plan is to discharge patient to home with home health including nursing and physical therapy. 7. Surgeon Follow-up: The patient is scheduled to be seen in Dr. Wang's office 2 weeks post op with xrays. 8. Primary care Follow-up: Please see your primary care provider in the next 2 to 5 weeks for general medical re-evaluation and medication review. 9. Labs: CBC without differential to be drawn on postop day 3 with results to PCP and please fax to [phone]. 10. Please contact [facility] if you have any questions or concerns at [phone]. WENDY WANG MD Feb 05, 2021 10:52
[2021-02-05] MEDS ORDERED: ONDANSETRON 4MG/2ML VIAL IV PRN ×2 (10:55→11:00)
[2021-02-05] MEDS ORDERED: METOCLOPRAMIDE INJ 10MG/2ML VIAL (J2765 PER 1) IV PRN (10:55)
[2021-02-05] MEDS ORDERED: LR 1,000 ML IV SCH ×2 (10:55)
[2021-02-05] MEDS ORDERED: fentaNYL 100 MCG/2 ML INJECTION (J3010) IV PRN (10:55)
[2021-02-05] MEDS ORDERED: PERCOCET 5MG/325MG TAB PO PRN (10:55)
[2021-02-05] MEDS ORDERED: SENNA 8.6 MG TAB (SENOKOT) PO PRN (11:00)
[2021-02-05] MEDS ORDERED: oxyCODONE 5MG TAB PO PRN ×2 (11:00)
[2021-02-05] MEDS ORDERED: ACETAMINOPHEN TAB 650MG DOSE (2X325MG) PO PRN (11:45)
[2021-02-05] MEDS: ACETAMINOPHEN TAB 650MG DOSE (2X325MG) PO SCH ×2 (12:38→17:26)
--- NOTE | 2021-02-05 14:22 | HPEPDOC ---
[facility] Medical History & Physical Date of Admission Feb 05, 2021 Date of Service: Feb 05, 2021 Attending Physician: MAGALY ELLSWORTH MD History and Physical CHIEF COMPLAINT: s/p R TKA HISTORY OF PRESENT ILLNESS: 55 yo W with a history of morbid obesity, CKD with baseline Cr 1.6, nicotine dependence, remote history of provoked RLE DVT, DDD with lumbar radiculopathy, hx of Graves, hypothyroidism and R knee OA s/p remote torn meniscus surgery who presented to the hospital for an elective R TKA s/p R TKA by Dr. Abbott now being admitted to medicine with orthopedics on consultation. She otherwise denies any recent illness, with no recent report of fever, chills, nausea, emesis, diarrhea, chest pain, shortness of breath. She does report chronic R knee pain and arthritic complaints for which she had a R TKA today. 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 REVIEW OF SYSTEMS: 10 point ROS was otherwise negative, except for the chronic R knee pain that was noted in the HPI. At present her RLE is numb post surgery after anesthesia, without any paulina pain. HOME MEDICATIONS: Please see below. PHYSICAL EXAMINATION: VITAL SIGNS: see below GENERAL APPEARANCE: NAD, obese, AOx3, breathing comfortably on 2L NC HEENT: NCAT, EOMI, dry MM CARDIOVASCULAR: RRR, no m/r/g LUNGS: CTAB, no crackles, no rhonchi or wheezing, on 2L NC, breathing comfortably, no accessory muscle use, speaking in full sentences ABDOMEN: Obese, normoactive sounds, soft, NTND EXT: RLE in postop nicolas bandaging, c/d/i, without saturation with blood or drainage, able to move toes with sensation in tact in toes. LLE without edema, with FROM. WWP NEUROLOGICAL: CN 3-12 intact, grossly nonfocal examination with RLE exam deferred PSYCHIATRIC: AOx3, normal affect LABORATORY DATA: See below. IMAGING: R knee XR: TECHNIQUE: AP and cross-table lateral views. FINDINGS: Normal appearance and positioning to the patellar, femoral and tibial components. Overlying postsurgical changes and skin patrick noted. IMPRESSION: Status post right knee replacement. Electronically signed by Jax Montoya > 02/05/21 1043 MICROBIOLOGY: Please see below. ASSESSMENT: 55 yo W with a history of morbid obesity, CKD with baseline Cr 1.6, nicotine dependence, remote history of provoked RLE DVT, DDD with lumbar radiculopathy, hx of Graves, hypothyroidism and R knee OA s/p remote torn meniscus surgery who presented to the hospital for an elective R TKA now being admitted to medicine with orthopedics on consultation. PLAN: Chronic R knee pain: -now POD0 s/p R TKA by Dr. Abbott -Pain management per orthopedics -ASA 81 BID for DVT ppx -Periop vancomycin per ortho (has PCN allergy) -PT/OT following ortho recs preDM: -daily BMP -regular diet Morbid obesity: -I imagine R TKA will aid in mobility in the audit consultant and ultimately with a weight loss plan, to follow up with PCP. Hypothyroidism: -continue levothyroxine Nicotine dependence: -counselled on the benefits of quitting in wound healing, bone health and general health -offered nicotine replacement therapy, declined DVT ppx: ASA 81 BID Vital Signs Vital Signs Date Time Temp Pulse Resp B/P (MAP) Pulse Ox O2 Delivery O2 Flow Rate FiO2 02/05/21 11:00 86 18 126/60 (82) 92 Room Air 02/05/21 10:45 97.7 2.0 Home Medications Scheduled Acetaminophen (Tylenol Arthritis) 650 Mg Tab, 3 TAB PO Q8H Levothyroxine Sodium (Levothyroxine Sodium) 200 Mcg Tablet, 200 MCG PO DAILY Scheduled PRN Tramadol HCl (Tramadol HCl) 50 Mg Tablet, 50 MG PO BIDP PRN for P Miscellaneous Medications Ibuprofen (Ibuprofen) 800 Mg Tab Allergies Coded Allergies: Penicillins (Verified Allergy, Intermediate, hives, 01/15/21) A-FIB/CHADSVASC A-FIB History Current/History of A-Fib/PAF?: No Current PO Anticoag Therapy: No Age/Risk Factor Scoring CHADSVASC: CHADSVASC Response (Comments) Value Age Risk Factor Age < 65 years old 0 Gender Risk Factor Female 1 Hx of CHF No 0 Hx of HTN No 0 Hx of Stroke/TIA/or VTE Yes 2 Hx of Diabetes No 0 Hx of Vascular Disease No 0 Total 3 Treatment Treatment ordered: NONE Reason Anticoagulant not given: Not indicated/[id number] MAGALY ELLSWORTH MD Feb 05, 2021 14:22
[2021-02-05] MEDS: traMADol 50 MG TAB PO PRN (17:25)
[2021-02-05] MEDS: VANCOMYCIN HCL 1,000 MG, VIAL MATE ADAPTER 1 EACH in NS 250 ML IV SCH (18:19)
[2021-02-05] MEDS: DOCUSATE SODIUM 100MG CAPSULE PO SCH (20:18)
[2021-02-05] MEDS: NAPROXEN 250 MG TAB PO SCH (20:18)
[2021-02-06] MEDS: ACETAMINOPHEN TAB 650MG DOSE (2X325MG) PO SCH ×3 (00:05→12:02)
[2021-02-06 02:00] VITALS: BP 144/80
[2021-02-06] MEDS: NORCO, ANEXSIA 5/325MG TABLET (HYDROcodone/ACETAMINOPHEN) PO PRN ×3 (04:31→16:15)
[2021-02-06 06:00] VITALS: BP 153/87
[2021-02-06] MEDS: VANCOMYCIN HCL 1,000 MG, VIAL MATE ADAPTER 1 EACH in NS 250 ML IV SCH (06:00)
[2021-02-06 08:24] LABS: HEMATOCRIT 42.9 % (36.0-47.0); HEMOGLOBIN 13.9 g/dl (12.0-15.5); MEAN CORPUSCULAR HEMOGLOBIN 30.6 pg (27.0-33.0); MEAN CORPUSCULAR HGB CONC 32.4 g/dl (32.0-36.5); MEAN CORPUSCULAR VOLUME 94.5 fl (80.0-96.0); PLATELET COUNT, AUTOMATED 390 10^3/uL (150-450); RED BLOOD COUNT 4.54 10^6/uL (4.00-5.40); WHITE BLOOD COUNT 14.4 10^3/uL (4.0-10.0)
[2021-02-06] MEDS ORDERED: HYDR-3715 PO (08:41)
[2021-02-06] MEDS ORDERED: FERR1TAB8 PO (08:41)
[2021-02-06] MEDS ORDERED: ASPI-551 PO (08:41)
[2021-02-06] MEDS ORDERED: COLA100C5 PO (08:41)
[2021-02-06 08:53] LABS: BLOOD UREA NITROGEN 13 MG/DL (7-18); CALCIUM LEVEL 9.7 MG/DL (8.5-10.1); CARBON DIOXIDE LEVEL 27 MEQ/L (21-32); CHLORIDE LEVEL 104 MEQ/L (98-107); CREATININE FOR GFR 0.79 MG/DL (0.55-1.30); GLOMERULAR FILTRATION RATE > 60.0 (>51); GLUCOSE, FASTING 154 MG/DL (70-100); MAGNESIUM LEVEL 2.2 MG/DL (1.8-2.4); POTASSIUM SERUM 4.4 MEQ/L (3.5-5.1); SODIUM LEVEL 140 MEQ/L (136-145)
[2021-02-06] MEDS ORDERED: ASPIRIN 81MG ENTERIC TABLET PO SCH (09:00)
[2021-02-06] MEDS ORDERED: ASCORBIC ACID 500 MG TAB PO SCH (09:00)
[2021-02-06] MEDS ORDERED: FERROUS SULFATE 325MG TAB PO SCH (09:00)
[2021-02-06] MEDS: DOCUSATE SODIUM 100MG CAPSULE PO SCH (09:13)
[2021-02-06] MEDS: NAPROXEN 250 MG TAB PO SCH (09:13)
--- NOTE | 2021-02-06 09:30 | DS.PDOC ---
Discharge Summary General Date of Admission 02/05/2021 Date of Discharge 02/06/2021 Attending Physician: MAGALY ELLSWORTH MD Discharge Summary PROCEDURES PERFORMED DURING STAY: R TKA on 02/05/2021 ADMITTING DIAGNOSES: R knee pain s/p elective R TKA DISCHARGE DIAGNOSES: R knee pain s/p elective R TKA morbid obesity CKD with baseline Cr 1.6 nicotine dependence remote history of provoked RLE DVT DDD with lumbar radiculopathy hx of Graves hypothyroidism R knee OA s/p remote torn meniscus surgery PreDM COMPLICATIONS/CHIEF COMPLAINT: Right Knee Osteoarthritis. HISTORY OF PRESENT ILLNESS: 55 yo W with a history of morbid obesity, CKD with baseline Cr 1.6, nicotine dependence, remote history of provoked RLE DVT, DDD with lumbar radiculopathy, hx of Graves, hypothyroidism and R knee OA s/p remote torn meniscus surgery who presented to the hospital for an elective R TKA s/p R TKA by Dr. Abbott and was admitted to medicine with orthopedics on consultation for postop observation. She otherwise denied any recent illness, with no recent report of fever, chills, nausea, emesis, diarrhea, chest pain, shortness of breath. HOSPITAL COURSE: Her course was uncomplicated. She had periop vancomycin per orthopedics, was started on ASA 81 BID for DVT ppx per orthopedics and pain was well managed with norco 1 tab q4hp. She worked with PT/OT and was cleared for home discharge. She is now being discharged home with close PCP and orthopedics follow up within 1 week. DISCHARGE MEDICATIONS: Please see below. ALLERGIES: Please see below. PHYSICAL EXAMINATION ON DISCHARGE: VITAL SIGNS: Please see below. GENERAL APPEARANCE: NAD, obese, AOx3, breathing comfortably on 2L NC HEENT: NCAT, EOMI, dry MM CARDIOVASCULAR: RRR, no m/r/g LUNGS: CTAB, no crackles, no rhonchi or wheezing, on 2L NC, breathing comfortably, no accessory muscle use, speaking in full sentences ABDOMEN: Obese, normoactive sounds, soft, NTND EXT: RLE in postop nicolas bandaging, c/d/i, without saturation with blood or drainage, able to move toes with sensation in tact in toes. LLE without edema, with FROM. WWP NEUROLOGICAL: CN 3-12 intact, grossly nonfocal examination with RLE exam deferred PSYCHIATRIC: AOx3, normal affect LABORATORY DATA: See below. IMAGING: R knee XR: TECHNIQUE: AP and cross-table lateral views. FINDINGS: Normal appearance and positioning to the patellar, femoral and tibial components. Overlying postsurgical changes and skin patrick noted. IMPRESSION: Status post right knee replacement. PROGNOSIS: Good ACTIVITY: As tolerated DIET: regular DISCHARGE PLAN: Home with PCP within 1 week, ortho within 7-10d DISPOSITION: Home DISCHARGE INSTRUCTIONS: Home with PCP within 1 week, ortho within 7-10d ITEMS TO FOLLOWUP ON ON OUTPATIENT: s/p R TKA follow up DISCHARGE CONDITION: Stable TIME SPENT ON DISCHARGE: 33 minutes. Vital Signs/I&Os Vital Signs Date Time Temp Pulse Resp B/P (MAP) Pulse Ox O2 Delivery O2 Flow Rate FiO2 02/06/21 06:00 97.1 87 19 153/87 (109) 93 Room Air 02/05/21 10:45 2.0 l I&O- Last 24 Hours up to 6 AM 02/06/21 06:00 Intake Total 930 ml Output Total 2900 ml Balance -1970 ml Discharge Medications Scheduled Acetaminophen (Tylenol Arthritis) 650 Mg Tab, 3 TAB PO Q8H, (Reported) Aspirin (Aspirin EC) 81 Mg Tablet.dr, 81 MG PO BID Docusate Sodium (Colace) 100 Mg Capsule, 100 MG PO BID Ferrous Sulfate (Ferrous Sulfate) 325 Mg Tablet, 325 MG PO DAILY Levothyroxine Sodium (Levothyroxine Sodium) 200 Mcg Tablet, 200 MCG PO DAILY, (Reported) Scheduled PRN Hydrocodone/Acetaminophen (Hydrocodone-Acetamin 5-325 mg) 1 Each Tablet, 1 TAB PO Q4HP PRN for MODERATE PAIN (PS 5-7) Tramadol HCl (Tramadol HCl) 50 Mg Tablet, 50 MG PO BIDP PRN for P, (Reported) Miscellaneous Medications Ibuprofen (Ibuprofen) 800 Mg Tab, (Reported) Allergies Coded Allergies: oxycodone (Unverified Allergy, Severe, throat swelling, 02/05/21) Pt was unsure if this was the medication she had the allergic raction too. Penicillins (Verified Allergy, Intermediate, hives, 01/15/21) MAGALY ELLSWORTH MD Feb 06, 2021 08:35
[2021-02-06 10:00] VITALS: BP 154/86
[2021-02-06] MEDS: traMADol 50 MG TAB PO PRN (12:02)
[2021-02-06 14:00] VITALS: BP 150/82
--- NOTE | 2021-02-06 16:42 | IPNPDOC ---
Text Note Date of Service The patient was seen on 02/06/21. NOTE Postop day 1 right total knee arthroplasty Patient is doing relatively well. She is not have any significant complaints or concerns. She has been up to the bathroom with a walker. Physical therapy has not evaluated her as of 7:15 in the morning. Bulky dressing was taken down. Mepilex dressing was intact without any obvious signs of staining. Patient was grossly neurovascularly intact to right foot and ankle. She is moving her toes and her right foot. Palpable posterior tibial pulse. X-ray imaging was independently reviewed by myself. X-ray imaging was taken in PACU postoperatively. This demonstrated the right total knee arthroplasty prosthesis in position without any obvious postoperative complications or otherwise Patient will be evaluated by physical therapy today with plan for discharge home when able with appropriate pain medications and otherwise as prescribed by the hospitalist service. Home health orders were faxed to [facility] via the charge nurse. Instructions for Zipline dressing were also faxed to [facility]. Discharge Instructions Total Knee Arthroplasty 1. Pain: You may take medication as prescribed for pain. Supplement with Naproxen and Tylenol as needed. Ice pack to operative knee as tolerated. 2. Wound care: Remove dressing on postop day 7. Call [phone] with any questions or concerns. Hygiene: The patient may shower. No tub baths. Check dressing seal prior to bathing. 3. Activity: WBAT right lower extremity. Front wheeled walker versus crutches for ambulation. Fall precautions. 4. Driving: No driving until cleared by your surgeon. Do not drive if taking narcotic pain medications as these may make you drowsy. 5. DVT Prophylaxis: Continue taking aspirin 81 mg p.o. twice daily as prescribed for the prevention of blood clots. Ankle pumps every 1 hour while awake. BAN hose at all times for 1 month after surgery. May remove for hygiene and wound care. 6. Placement: Plan is to discharge patient to home with home health including nursing and physical therapy. 7. Surgeon Follow-up: The patient is scheduled to be seen in Dr. Wang's office 2 weeks post op with xrays. 8. Primary care Follow-up: Please see your primary care provider in the next 2 to 5 weeks for general medical re-evaluation and medication review. 9. Labs: CBC without differential and BMP to be drawn on postop day 3 with results to PCP and please fax to [phone]. 90. Please contact [facility] if you have any questions or concerns at [phone]. VS,Sergio, I+O VS, Sergio, I+O Laboratory Tests 02/06/21 08:01 Vital Signs Date Time Temp Pulse Resp B/P (MAP) Pulse Ox O2 Delivery O2 Flow Rate FiO2 02/06/21 16:15 17 02/06/21 14:00 97.6 85 150/82 (104) 95 Room Air 02/05/21 10:45 2.0 I&O- Last 24 Hours up to 6 AM 02/06/21 06:00 Intake Total 930 ml Output Total 2900 ml Balance -1970 ml WENDY WANG MD Feb 06, 2021 16:42
--- OUTSIDE RECORDS SUMMARY | 2021-02-13 10:39 | CCD | Continuity of Care Document ---
Author Author Pauline WANG MD Organization Unknown Address [address] , [facility] [place] [address] Phone [phone] Care Team Providers Care Fiscal Technician Name Role Phone Cherie Almendarez R.P.A. AUTM [phone] AUTM Unavailable Problems Description No Information Available Social History Type Date Description Comments Sex Unknown ETOH Use Denies alcohol use Tobacco Use Start: Unknown Report Cessation Counseling Was Provided Recreational Drug Use Denies Drug Use Tobacco Use Start: Unknown Smokes 1/2 Pack A Day or less: s ometimes 4 cigarettes, patient actively trying to quit Smoking Status Reviewed: 12/28/20 Smokes 1/2 Pack A Day or less : sometimes 4 cigarettes, patient actively trying to quit Allergies and adverse reactions Active Allergies Criticality Reaction | Severity Comments Date Penicillin Unable to assess criticality Cillins 10/29/2017 Codeine Unable to assess criticality Hives, blisters 10/17/2020 Medications Active Medications SIG Qnty Indications Ordering Provide r Date Levothyroxine Sodium 225mcg Tablet s 1 by mouth every day Unknown Tylenol Extra Strength 500mg Table ts as needed Unknown Metformin HCL 500mg Tablets 1 tab by mouth daily Unknown Atorvastatin Calcium 40mg Tablets 1 tab by mouth daily Unknown Chlorthalidone 25mg Tablets 1 by mouth every day Unknown Immunizations Description No Information Available Vital Signs Date Vital Result Comment 10/17/2020 2:43pm Body Temperature 98.6 F Height 61 inches 5'1" Weight 207.00 lb BMI (Body Mass Index) 39.1 kg/m2 [place] Body Weight 105 lb Weight 93.895 kg BSA (Body Surface Area) 1.92 m2 10/29/2017 3:34pm BP Systolic 128 mmHg BP Diastolic 82 mmHg Height 61 inches 5'1" Weight 208.00 lb BMI (Body Mass Index) 39.3 kg/m2 [place] Body Weight 105 lb Weight 94.349 kg BSA (Body Surface Area) 1.92 m2 Results Description No Information Available Procedures Date Code Description Status 12/28/2020 03374 Office/Outpatient Established Mo d MDM 30-39 Min Completed 10/17/2020 29755 Office/Outpatient New Moderate M DM 45-59 Minutes Completed Medical Devices Description No Information Available Encounters Type Date Location Provider Dx Diagnosis Office Visit 12/28/2020 2:30p [facility] Jeffry Wang MD M17.11 Unilateral primary osteoarthritis, right knee Office Visit 10/17/2020 3:00p [facility] Jeffry Wang MD M17.11 Unilateral primary osteoarthritis, right knee Assessments Date Code Description Provider 12/28/2020 M17.11 Osteoarthritis of right knee neema nancy Wang MD 10/17/2020 M17.11 Osteoarthritis of right knee neema nancy Wang MD Plan of Treatment 12/28/2020 - Jeffry Wang MD* M17.11 Osteoarthritis of right knee joint* New Labs:* Hemoglobin A1c, Ordered: 12/28/20 * Comments:* The patient last HbA1c was 6 and this was done in November.The patient is at a higher risk of an infection etc. associated with her diabetes however this is controlled.I did explain to the patient that a total joint replacement procedure is an elective procedure. Candidacy for the procedure is based on imaging and the patient's symptoms and whether or not the patient would like to proceed with the surgery. The procedure is performed for pain relief only. Any other gains are secondary. The risks of the procedure include but are not limited to infection, periprosthetic fracture, damage to local neurovascular or soft tissue structures, deep vein thrombosis or pulmonary emboli, and need for revision surgery. Anesthetic risks will be discussed with the anesthesiologist. These include but are not limited to, heart attack, stroke and .Total knee arthroplasty patients typically fall into 3 categories of outcomes. Approximately 85% of patients are happy with the results and would have the surgery performed, again without any concerns. Approximately 10-15% of patients are happy with the results and would have the surgery performed. Again, but may have some persistent aches and pains or other symptoms. These patients typically have had a fracture of bone around the joint or the F had an open surgical procedure or infection around the joint. Approximately 1% of patients have the joint replacement procedure performed and did not experience any alleviation or sometimes worsening of her symptoms. If there is no identifiable cause of their persistent or worsening symptoms, then there is nothing that can be done. If there is no obvious cause of pain or discomfort, it can take a prolonged period of time in determining cause, if any, is the early period for a total joint replacement is approximately 1 year whereas the early period for most surgical intervention to 6 weeks.The patient is aware that the procedure will be planned for completion with a [employer] program.We will move forward with the booking process. She has signed consent. * Follow up:* Booking right total knee arthroplasty Functional Status Description No Information Available Mental Status Description No Information Available Referrals Refer to Reason for Referral Status Appt Date Vijay Kelly M.D. Left knee incidental finding on x-ray evaluated with MRI with findings as described below: Lobulated heterogeneous complex cystic mass at the proximal tibiofibular articulation, involves the proximal end of the tibia laterally and also the adjacent fibular head. The intra osseous margins are somewhat ill-defined. Please evaluate and treat, as necessary Closed [facility] [address] [address] [phone]
--- OUTSIDE RECORDS SUMMARY | 2021-02-13 10:39 | CCD ---
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 Active confirm ed 67213173 Problem Nicotine dependence, cigarettes, uncomplicated F17 .210 Active confirmed 736598727 Problem Vitamin D deficiency E55.9 Active confirmed 46677922 Problem Pain in right knee M25.561 Active confirmed 35208716 Problem Prediabetes R73.03 Active confirmed 03313826 2 Problem Essential hypertension I10 Active confirmed 34080702 Problem Morbid (severe) obesity due to excess calories E66 .01 Active confirmed 671134873 Problem Arthritis of knee, right M17.11 Active confirmed 1180629998629759 Problem Mixed hyperlipidemia E78.2 Active confirmed 603411631 Problem Cervical cancer screening Z12.4 Active confirmed 078838569 Problem Encounter for screening mammogram for malignant neoplasm of breast Z12.31 Active confirmed 348834674 Problem Breast cancer screening by mammogram Z12.31 Act radha confirmed 425433358 Problem Colon cancer screening Z12.11 Active confirmed 088304671 ALLERGIES Allergen (clinical drug ingredient) Drug/Non Drug Allergy do cumented on EMR Reaction Allergy Type Onset Date Status Penicillin (For Allergies Use Only) Anaphylaxis Drug Aller gy Active ENCOUNTERS from 1965 to 2021-02-05 Encounter Location Date Provider Diagnosis [place] [id number] [place] [address] Jan, Cherie Rojo IMMUNIZATIONS Vaccine Route Administration Date Status COVID-19 dose #2 given elsewhere Unspecified Unknown Apr il 2020 Administered COVID-19 dose #1 given elsewhere Unspecified Unknown Mar ch 2020 Administered SOCIAL HISTORY Tobacco Use: Social History Observation Description Date Details (start date - stop date) Current Smoker Sex Assigned At : Social History Observation Description Sex Assigned At Unknown Education: Question Answer Notes Level of Education: Finished High School Audit Question Answer Notes Total Score: 0 Interpretation: Alcohol Education Language: Question Answer Notes Languages spoken: Latvian Latter Day: Question Answer Notes Latter Day taoist Sexual Hx: Question Answer Notes Had sex in the last 12 months (vaginal, oral, or anal)? Yes LMP: 2014 Have you ever had an STD? No with Men only Use protection? Yes How often? All of the time Drug and Alcohol Question Answer Notes Total Score: 0 Interpretation: No problems reported Alcohol Screening: Question Answer Notes Did you have a drink containing alcohol in the past year? No Points 0 Interpretation Negative BMI Care Goal Follow-Up Question Answer Notes Above Normal BMI Follow-Up Dietary management educatio n, guidance, and counseling Tobacco Use: Question Answer Notes Are you a: current smoker Patient counseled on the dangers of tobacco use and urged to quit: 07/16/2020 How many cigarettes a day do you smoke? 6-10 Are you interested in quitting? Not ready to quit Counseled the patient on smoking effects, education provided 07/16/2020 REASON FOR REFERRAL No Information VITAL SIGNS No information MEDICATIONS Medication SIG (Take, Route, Frequency, Duration) Notes Start Da te End Date Status metFORMIN HCl 500 MG 1 tablet with meals Orally bid for 30 days Not-Taking Ibuprofen 200 MG 1 tablet with food or milk as needed Orally TID PRN Dec, Not-Taking Chlorthalidone 25 MG 1 tablet in the morning with food Orally Once a day for 30 day(s) July, Not-Taking Levothyroxine Sodium 200 MCG TAKE ONE TABLET BY MOUTH EVERY MORNING ON AN EMPTY STOMACH for 30 Active Synthroid 25 MCG 1 tablet in the morning on a n empty stomach with 200 mcg synthroid Orally Once a day, with 200 mcg for 30 day(s) July, Active traMADol HCl 50 MG 1 tablet as needed Orally tw ice daily for knee pain for 30 Days Nov, Not-Taking Atorvastatin Calcium 40 MG 1 tablet Orally Once a day for 30 day s Dec, Not-Taking Vitamin D 50 MCG (1999 [place]) 1 tablet Orally Once a day for 30 day (s) Nov, Not-Taking Tylenol 325 MG 1 tablet as needed Orally every 4 hrs Active PROCEDURES No Information RESULTS No Results REASON FOR VISIT clearance MEDICAL (GENERAL) HISTORY Type Description Date Medical History Grave's Disease with iodine therapy, 200 6 Medical History hypothyroidism Medical History G4, P2 with 2 spont abortions Medical History nicotine dependence Medical History morbid obesity Medical History hyperlipidemia/hypertriglyceridemia Medical History EKG 10/03 SR, [id number] Medical History ANAY FEV1 82% predicted 2.06 05/26 Medical History ? RLE DVT after RLE injury p laying soccer, would have been in mid , unsure of exactly what this was or how it was treated, [place] Medical History Vit D def Medical History medical noncompliance Medical History DDD, lumbar with radiculopathy Medical History +RF,Rheum 2018, felt not RA. Medical History 08/01 ASCVD 5.9% Medical History menopause 2014 Surgical History C section x2 Surgical History tubal ligation 1999 Surgical History D & C s/p spont miscarriage late 20s, or early 30s Surgical History knee right torn meniscus 2014 Hospitalization History child 1985, 1999 Goals Section No Information Health Concerns No Information MEDICAL EQUIPMENT No Information MENTAL STATUS No Information FUNCTIONAL STATUS No Information ASSESSMENTS No Information PLAN OF TREATMENT Next Appt Details Provider Name:Cherie Rojo, 2021-06-03 03:30:00 PM, [address], , [place], [address], Insurance Providers Payer Name Payer Address Payer Phone Insured Name Patient Relati onship to Insured Coverage Start Date Coverage End Date [facility] [id number] [facility] [id number] [address] self
--- OUTSIDE RECORDS SUMMARY | 2021-02-13 10:39 | CCD ---
Author Author [facility] Organization [facility] Address Unknown Phone Unavailable Care Team Providers Care Granite Cutter Name Role Phone Alia Cherie Unavailable PROBLEMS Type Condition ICD9-CM Code [id number] Code Onset Dates Condition S tatus W/U Status Risk SNOMED Code Notes Problem Postprocedural hypothyroidism E89.0 Active confirm ed 09392200 Problem Nicotine dependence, cigarettes, uncomplicated F17 .210 Active confirmed 788619155 Problem Vitamin D deficiency E55.9 Active confirmed 69200949 Problem Pain in right knee M25.561 Active confirmed 07385909 Problem Prediabetes R73.03 Active confirmed 34938418 2 Problem Essential hypertension I10 Active confirmed 55481689 Problem Morbid (severe) obesity due to excess calories E66 .01 Active confirmed 814144815 Problem Arthritis of knee, right M17.11 Active confirmed 0067662440251946 Problem Mixed hyperlipidemia E78.2 Active confirmed 160666845 Problem Cervical cancer screening Z12.4 Active confirmed 555821791 Problem Encounter for screening mammogram for malignant neoplasm of breast Z12.31 Active confirmed 809655915 Problem Breast cancer screening by mammogram Z12.31 Act radha confirmed 499738052 Problem Colon cancer screening Z12.11 Active confirmed 738467688 ALLERGIES Allergen (clinical drug ingredient) Drug/Non Drug Allergy do cumented on EMR Reaction Allergy Type Onset Date Status Penicillin (For Allergies Use Only) Anaphylaxis Drug Aller gy Active ENCOUNTERS from 1965 to 2021-02-05 Encounter Location Date Provider Diagnosis [address] [place] [address] Jan, Cherie Rojo Pre-op evaluation Z01.818 and Arthritis of knee, right M17.11 IMMUNIZATIONS Vaccine Route Administration Date Status COVID-19 [...] Education Language: Question Answer Notes Languages spoken: Welsh Methodist: Question Answer Notes Methodist zoroastrian Sexual Hx: Question Answer Notes Had sex [...] REASON FOR REFERRAL No Information VITAL SIGNS Weight 226 lbs Jan, Height 60 in Jan, BMI 44.13 kg/m2 Jan, Heart Rate 106 /min Jan, Respiratory Rate 22 /min Jan, Temperature 97.4 degrees Fahrenheit Jan, Oximetry 95 Jan, Blood pressure systolic 108 mm Hg Jan, Blood pressure diastolic 76 mm Hg Jan, MEDICATIONS Medication SIG (Take, Route, Frequency, Duration) [...] s Dec, Not-Taking Vitamin D 50 MCG (2000 UT) 1 tablet Orally Once a day for 30 day (s) Nov, Not-Taking Tylenol 325 MG 1 tablet as needed Orally every 4 hrs Active PROCEDURES No Information RESULTS Component Value Reference Range CBC with Differential Reviewed date:01/25/2021 20:27:29 Interpretation: Performing Lab:[facility] LABORATORY [address] [place] [address] , ,[place] [address] WHITE BLOOD COUNT 9.1 4.0-10.0 RED BLOOD COUNT 4.91 4.00-5.40 HEMOGLOBIN 14.8 12.0-15.5 HEMATOCRIT 46.3 36.0-47.0 MEAN CORPUSCULAR VOLUME 94.3 80.0-96.0 MEAN CORPUSCULAR HEMOGLOBIN 30.1 27.0-33.0 MEAN CORPUSCULAR HGB CONC 32.0 32.0-36.5 RED CELL DISTRIBUTION WIDTH 13.2 11.5-14.5 PLATELET COUNT, AUTOMATED 393 150-450 NEUTROPHILS % 57.3 36.0-66.0 LYMPH % 25.9 24.0-44.0 MONO % 13.8 2.0-8.0 EOS % 1.5 0.0-3.0 BASO % 1.1 0.0-1.0 NEUTROPHILS # 5.2 1.5-8.5 LYMPH # 2.4 1.5-5.0 MONO # 1.3 0.0-0.8 EOS # 0.1 0.0-0.5 BASO # 0.1 0.0-0.2 Comprehensive Metabolic Profile (CMP) Reviewed date:01/25/2021 20:27:29 Interpretation: Performing Lab:[facility] LABORATORY [address] [facility] [address] , ,[place] [address] GLUCOSE, FASTING 92 70-100 BLOOD UREA NITROGEN 17 7-18 CREATININE FOR GFR 0.78 0.55-1.30 GLOMERULAR FILTRATION RATE > 60.0 >51 SODIUM LEVEL 137 136-145 POTASSIUM SERUM 4.4 3.5-5.1 CHLORIDE LEVEL 100 98-107 CARBON DIOXIDE LEVEL 29 21-32 CALCIUM LEVEL 9.5 8.5-10.1 AST/SGOT 11 7-37 ALT/SGPT 20 12-78 ALKALINE PHOSPHATASE 116 45-117 BILIRUBIN,TOTAL 0.1 0.2-1.0 TOTAL PROTEIN 8.0 6.4-8.2 ALBUMIN 3.5 3.2-5.2 ALBUMIN/GLOBULIN RATIO 0.8 1.2-2.2 REASON FOR VISIT preop for right total knee on 02/05/[address] Abbott under spinal. dx m17.11 fax # [phone] MEDICAL (GENERAL) HISTORY Type Description Date Medical History Grave's Disease with iodine therapy, 200 6 Medical History hypothyroidism Medical History G4, P2 with 2 spont abortions Medical History nicotine dependence Medical History morbid obesity Medical History hyperlipidemia/hypertriglyceridemia Medical History EKG 10/03 SR, [id number] Medical History ANAY FEV1 82% predicted 2.06 [...] History 08/01 ASCVD 5.9% Medical History menopause 2015 Surgical History C section x2 Surgical History tubal ligation 1999 Surgical History D & C s/p spont miscarriage late 20s, or early 30s Surgical History knee right torn meniscus 2015 Hospitalization History child 1985, 1999 Goals Section No Information Health Concerns No Information MEDICAL EQUIPMENT No Information MENTAL STATUS No Information FUNCTIONAL STATUS No Information ASSESSMENTS Encounter Date Diagnosis Assessment Notes Treatment Notes Treatm ent Clinical Notes Jan, Pre-op evaluation (ICD-10 - Z01.818) I discussed the risks vs. benefits of surgery with the patient in generic terms. I feel that she is at lower than average risk for perioperative complications. She knows that there is always some risk with surgery and she has to be comfortable that, for her, the benefits of surgery outweigh the risks in order to proceed. If she has further questions regarding the specifics of the proposed surgical procedure and specific risks, she should discuss them with the surgeon. I feel that the patient's acute and chronic medical conditions are fully optimized at the present time. There are no readily alterable factors that could lower the patient's perioperative risk. I have recommended the patient stop all medications as recommended by their surgeon and anesthesia. In addition I recommend stopping any vitamins and supplements that she may takes. No meds the morning of surgery. CBCd, CMP today. EKG 10/03 SR, no need to repeat this. Jan, Arthritis of knee, right (ICD-10 - M17.11) PLAN OF TREATMENT Treatment Notes Assessment Notes Clinical Notes Pre-op evaluation I discussed the risks vs. be nefits of surgery with the patient in generic terms. I feel that she is at lower than average risk for perioperative complications. She knows that there is always some risk with surgery and she has to be comfortable that, for her, the benefits of surgery outweigh the risks in order to proceed. If she has further questions regarding the specifics of the proposed surgical procedure and specific risks, she should discuss them with the surgeon. I feel that the patient's acute and chronic medical conditions are fully optimized at the present time. There are no readily alterable factors that could lower the patient's perioperative risk. I have recommended the patient stop all medications as recommended by their surgeon and anesthesia. In addition I recommend stopping any vitamins and supplements that she may takes. No meds the morning of surgery. CBCd, CMP today. EKG 10/03 SR, no need to repeat this. Next Appt Details Bw today Reason: Provider Name:Cherie Rojo, 2021-06-03 03:30:00 PM, [address], , [place], [address], Insurance Providers Payer Name Payer Address Payer Phone Insured Name Patient Relati onship to Insured Coverage Start Date Coverage End Date BCBS [facility] [id number] [facility] [address] [address] self
--- OUTSIDE RECORDS SUMMARY | 2021-02-13 10:39 | CCD | Continuity of Care Document ---
Author Author Pauline WANG MD Organization Unknown Address [address] , [facility] [place] [address] Phone [phone] Care Team Providers Care Lap Grinder Name Role Phone Cherie Almendarez R.P.A. AUTM [phone] AUTM Unavailable Problems Description No Information Available [...] lb BMI (Body Mass Index) 39.1 kg/m2 [place] Body Weight 105 lb Weight 93.895 kg BSA (Body Surface Area) 1.92 m2 10/29/2017 3:34pm BP Systolic 128 mmHg BP Diastolic 82 mmHg Height 61 inches 5'1" Weight 208.00 lb BMI (Body Mass Index) 39.3 kg/m2 [place] Body Weight 105 lb Weight 94.349 kg BSA (Body Surface Area) 1.92 m2 Results Description No Information Available Procedures Date Code Description Status 12/28/2020 26713 Office/Outpatient Established Mo d MDM 30-39 Min Completed 10/17/2020 21979 Office/Outpatient New Moderate M DM 45-59 Minutes Completed Medical Devices Description No Information Available Encounters Type Date Location Provider Dx Diagnosis Office Visit 12/28/2020 2:30p [facility] Jeffry Wang MD M17.11 Unilateral primary osteoarthritis, right knee Office Visit 10/17/2020 3:00p [facility] Jeffry Wang MD M17.11 Unilateral primary [...] will be planned for completion with a [employer] program.We will move forward with the booking [...] Please evaluate and treat, as necessary Closed [facility] [address] [address] [phone]
--- OUTSIDE RECORDS SUMMARY | 2021-02-13 10:40 | CCD ---
Author Author [facility] Organization [facility] Address Unknown Phone Unavailable Care Team Providers Care Home Care Manager Rn Name Role Phone Cherie Rojo Unavailable PROBLEMS Type Condition ICD9-CM Code [id number] Code Onset Dates Condition S tatus W/U Status Risk SNOMED Code Notes Problem Morbid (severe) obesity due to excess calories E66 .01 Active confirmed 948362046 Problem Vitamin D deficiency E55.9 Active confirmed 24394711 Problem Pain in right knee M25.561 Active confirmed 38100428 Problem Nicotine dependence, cigarettes, uncomplicated F17 .210 Active confirmed 331890754 Problem Colon cancer screening Z12.11 Active confirmed 632898672 Problem Mixed hyperlipidemia E78.2 Active confirmed 973162239 Problem Essential hypertension I10 Active confirmed 15504788 Problem Postprocedural hypothyroidism E89.0 Active confirm ed 89665062 Problem Prediabetes R73.03 Active confirmed 79439463 2 Problem Cervical cancer screening Z12.4 Active confirmed 089475833 Problem Encounter for screening mammogram for malignant neoplasm of breast Z12.31 Active confirmed 721014083 Problem Breast cancer screening by mammogram Z12.31 Act radha confirmed 168912671 ALLERGIES Allergen (clinical drug ingredient) Drug/Non Drug Allergy do cumented on EMR Reaction Allergy Type Onset Date Status Penicillin (For Allergies Use Only) Anaphylaxis Drug Aller gy Active ENCOUNTERS from 1965 to 2020-12-05 Encounter Location Date Provider Diagnosis [facility] [address] [phone] [place] [address] 22 Nov, 2020 Cherie Rojo IMMUNIZATIONS Vaccine Route Administration Date Status COVID-19 dose #2 given elsewhere Unspecified Unknown Apr 2020 Administered COVID-19 dose #1 given elsewhere Unspecified Unknown Mar 2020 Administered SOCIAL HISTORY Tobacco Use: Social History Observation Description Date Details (start date - stop date) Current Smoker Sex Assigned At : Social History Observation Description Sex Assigned At Unknown Education: Question Answer Notes Level of Education: Finished High School Audit Question Answer Notes Total Score: 0 Interpretation: Alcohol Education Language: Question Answer Notes Languages spoken: Mongolian Jew: Question Answer Notes Jew jehovah's witness Sexual Hx: Question Answer Notes Had sex [...] Notes Start Da te End Date Status Synthroid 200 MCG 1 tablet on an empty stomach in the morning Orally Once a day for 30 days Active metFORMIN HCl 500 MG 1 tablet with meals Orally bid for 30 days Active traMADol HCl 50 MG 1 tablet as needed Orally tw ice daily for knee pain for 30 Days Nov, Active Chlorthalidone 25 MG 1 tablet in the morning with food Orally Once a day for 30 day(s) July, Active Vitamin D 50 MCG (2000 UT) 1 tablet Orally Once a day for 30 day (s) Nov, Active Synthroid 25 MCG 1 tablet in the morning on a n empty stomach with 200 mcg synthroid Orally Once a day, with 200 mcg for 30 day(s) July, Active Tylenol 325 MG 1 tablet as needed Orally every 4 hrs Active Ibuprofen 200 MG 1 tablet with food or milk as needed Orally TID PRN Dec, Active Atorvastatin Calcium 40 MG 1 tablet Orally Once a day for 30 day s 26 Dec, 2019 Active PROCEDURES No Information RESULTS No Results REASON FOR VISIT PA Tramadol 50mg tablets, #60/30 MEDICAL (GENERAL) HISTORY Type Description Date Medical History Grave's Disease with iodine therapy, 200 6 Medical History hypothyroidism Medical History G4, P2 with 2 spont abortions Medical History nicotine dependence Medical History morbid obesity Medical History hyperlipidemia/hypertriglyceridemia Medical History EKG 10/03 SR, [id number] Medical History ANAY FEV1 82% predicted 2.06 [...] Information ASSESSMENTS No Information PLAN OF TREATMENT Medication Medication Name Sig Start Date Stop Date Vitamin D 50 MCG (1999) 1 tablet Orally Once a day for 30 day(s) Nov, traMADol HCl 50 MG 1 tablet as needed Orally tw ice daily for knee pain for 30 Days Nov, Next Appt Details Provider Name:Cherie Rojo, 2021-06-03 03:30:00 PM, [address], , [place], [address], Insurance Providers Payer Name Payer Address Payer Phone Insured Name Patient Relati onship to Insured Coverage Start Date Coverage End Date BCBS OF [facility] [id number] [facility] [id number] [place] MARC self
--- OUTSIDE RECORDS SUMMARY | 2021-02-13 10:40 | CCD | Summary of Care ---
Author Author [facility] Organization [facility] Address Unknown Phone Unavailable Care Team Providers Care Secretary Of State Name Role Phone Tanesha Carrillo NP PCP [phone] Reason for Referral * Diagnostic Radiology (Routine) Referred By Contact Referred To Contact Status Reason Specialty Diagnoses / Procedures Vijay Kelly MD [address] [facility] [address] [place] [address] Email: [email or web address] Open Radiology Diagnoses Bone lesion Soft tissue mass Primary osteoarthritis of right knee Chronic pain of right lower extremity P rocedures NM Bone Scan Imaging Whole Body Electronically signed by Vijay Kelly MD at Reason for Visit * Reason Comments New Patient Encounter Details Care Team Description Date Type Department Vijay Kelly MD [address] [address] [phone] Bone lesion (Primary Dx); Soft tissue mass; Primary osteoarthritis of right knee; Chronic pain of right lower extremity 11/30/2020 Telemedicine [facility] , [facility] [address] [address] Allergies Not on Filedocumented as of this encounter (statuses as of 11/30/2020) Medications Not on filedocumented as of this encounter (statuses as of 11/30/2020) Active Problems Not on filedocumented as of this encounter (statuses as of 11/30/2020) Social History Date Tobacco Use Types Packs/Day Years Used Never Assessed Sex Assigned at Date Recorded Not on file documented as of this encounter Last Filed Vital Signs Not on filedocumented in this encounter Progress Notes * Wai Blackwell MD - 11/30/2020 3:30 PM EDT Images from the original note were not included. This is a tele-medical visit. The patient was informed of the risks including se curity breach, technological failure, inability to perform a comprehensive physi xiao exam which could delay or prevent an accurate diagnosis, and potential compl ications from treatment decisions rendered over a telemedical platform. The shelia ent understands and consented to the use of tele-health services. The service was provided by means of an audio/video telecommunication. Time spent on this evaluation today: 62 minutes RESIDENT INVOLVEMENT IN PRE-CHARTING ONLY: Information from previous notes, labs and images were put into the note by the resident during the pre-charting proce ss. This was performed under my supervision. The resident did not participate in the actual patient encounter. Ortiz portions of the history and examination wer e repeated by me, and the entire resident note was reviewed. Modifications to t hat evaluation are detailed here. Changes to the note are made within the subst ance of the original resident note. NEW PATIENT, INITIAL ENCOUNTER, SOFT TISSUE MASS Episode of Care: Initial Symptoms: Chronic Anatomical Site: Knee Laterality: Left CC: Painful bone lesion HPI: Pauline is a 55 y.o. year/old White or female with an soft tissue ma ss of the left proximal lower leg with erosion into the tibia and fibula found i ncidentally x-rays for right knee DJD. Has had RIGHT contralateral knee pain x 5 years after a NON-work related meniscal injury and subsequent arthroscopic Rx t hat didn't really help much. Left side is completely asymptomatic. No left lat eral knee swelling. No neurological symptoms on LLE, but she does have what samantha nds like meralgia paresthetica on the right thigh. History of preceding trauma was absent. She denies constitutional symptoms. History of prior known bone lesions/cancer was absent. Work-up thus far has consisted of x-rays, CTRA, MRI, B NCV/EMG of the involved s ite. Staging work-up thus far has consisted of MRI. PMHx: Reviewed on current visit information sheet. No past medical history on file. No past surgical history on file. No current outpatient medications on file. Not on File PSoHx: Social History Tobacco Use Smoking status: Not on file Substance Use Topics Alcohol use: Not on file Drug use: Not on file FHx: Cancer-related family history is not on file. No family history on file. ROS: Comprehensive review of systems completed by patient and reviewed by me. P ertinent positive findings included in HPI. Otherwise negative. PHYSICAL EXAM: Telemed PEx limited to observation only. Healthy-appearing, well-developed, well-nourished, alert and oriented x person/p lace/time. Mood showing no evidence of agitation, anxiety, or depression. HEENT: Normocephalic and atraumatic to inspection. Sclerae anicteric. Extraocula r muscles intact. Oropharynx clear with no lesions. Mucous membranes pink and mo ist. Hearing intact to conversation. NECK: Visibly normal to observation. Patient notes no nodes/masses. No JVD. HEART: Unable to examine through TeleMed. LUNGS: Respiratory effort normal, unlabored. No retractions. ABDOMEN: Unable to examine through TeleMed. LYMPH: Unable to examine directly through TeleMed but guided patient exam alia loo no palpable axillary/inguinal/popliteal adenopathy. SKIN: No rash, jaundice, or nodules (also see MSK below) to inspection. PERIPHERAL VASCULAR EXAM: No cyanosis, clubbing in the distal extremities. NEURO: Neuro status distally on the pertinent side shows intact motor function g rossly. Patient denies loss of sensation. MUSCULOSKELETAL: Full range of motion vs right knee limited ROM. No erythema or swelling. No masses visible. Walks with right sided antalgic gait. RADIOLOGY: All films were reviewed by myself with the patient/family members. X rays on bilateral show lytic lesions of left proximal tibia and fibula with scle rotic margins; there is degenerative changes of both knees; in addition, there i s some punctate calcifications seen in the distal femur. Only upright AP of bila teral knees available. CT angio shows mass eroding into proximal tibia & fibula with close relation to the anterior tibial artery and branches off the common peroneal; there are lytic lesions in the distal femur. MRI shows a multilo bulated heterogenous lesion. In addition, there is bony edema within the femoral canal. No official CT read available. 11/02/20 MRI ASSESSMENT: 1. Aggressive appearing soft tissue lesion left knee. However, based upon the lo cation and the involvement of both sides of the tib-fib joint, this appears to b e more of a synovial process than a primary soft tissue tumor per se. Proximal tib-fib synovial cysts are not uncommon, and this is one of the presentations, t hat being bony erosion. However, the DDX also includes both benign and malignan t soft tissue masses, including soft tissue sarcoma, metastatic carcinoma, lymph vega, desmoid tumor, nerve sheath tumors, among numerous others. 2. Bone lesion with punctate calcification in left distal femur: I suspect this may represent just a low-grade cartilage neoplasm, but we need to clarify this. Of course, the standard DDX in this age group also includes mets, myeloma, lym phoma, and less likely primary bone sarcoma such as chondrosarcoma, osteosarcoma , fibrosarcoma, and MFH, among others. 3. Chronic right knee pain with tricompartmental DJD. She is having this cared for by Dr. Darian Flores at [facility] and plans to undergo total k nee replacement in the near future. PLAN: SOFT TISSUE MASS- Options here would be to have interventional radiology d o a needle biopsy, observe and repeat the MRI at an interval, or pursue this ope n with possible frozen section biopsy and/or curettage, grafting, and excision o f the soft tissue mass, which as above, I think will probably pipe turner to be a p roximal tib-fib synovial cyst. INDETERMINATE SOFT-TISSUE MASS INTERVENTIONAL BIOPSY- Recommended image guided n eedle biopsy by Interventional Radiology in order to obtain tissue for diagnosis . The patient wants to hold off on this and just surveill. Risks and benefit s reviewed. BONE LESION-in regards to her femoral calcifications, in order to ensure that we can follow this, we need ADDITIONAL IMAGING. We'll order a total body bone scan to evaluate whether this is active on the bone scan and also to look for other lesions. We will discuss the pathology and results of the studies once they are available . I think it would be good to see her in 2 to 3 months to allow some time to pa ss between the original x-rays and that visit so that we can not only review the results of the bone scan but also the new x-rays. She understands to call the office for any worsening symptoms. Patient expressed understanding and agreemen t with the plan. CC: Tanesha Carrillo NP CC: Tanesha Carrillo NP Encounter Diagnoses Name Primary? Bone lesion Yes Soft tissue mass Primary osteoarthritis of right knee Chronic pain of right lower extremity Orders Placed This Encounter NM Bone Scan Imaging Whole Body XR Knee 4 or More Views Left Summary of the information reviewed: 1. History, 2. Physical exam, 3. X-rays, CT angiogram, MRI 4. Prior notes, 5. Outside CT and report, 6. Outside MRI an d report, 7. Outside physician notes Complexity: High Risk of disease: Indeterminate, probably moderate given the destruction in the b one Risk of treatment: Indeterminate, possibly high if major surgery needed for eith er lesion or both documented in this encounter Plan of Treatment Order Schedule Name Type Priority Associated Diag noses Expected: 11/30/2020, Expires: 2 NM Bone Scan Imaging Imaging Routine Bone lesi on Whole Body Soft tissue mass Primary osteoarthritis of right knee Chronic pain of right lower extremity Expected: 11/30/2020, Expires: 3 XR Knee 4 or More Views Imaging Routine Bone l esion Left Soft tissue mass Primary osteoarthritis of right knee Chronic pain of right lower extremity Health Maintenance Due Date Last Done Comments MMR Vaccines (1 of - 1966 Standard series) Varicella Vaccines (1 of 1966 2 - 2-dose childhood series) DTaP,Tdap,and Td Vaccines 1972 (1 - Tdap) COVID-19 Vaccine (1) 1977 HIV Screening 1978 Cervical Cancer Screening 1986 5 years Breast Cancer Screening 2 06/22/2015 years Colon Cancer Screening 10 06/22/2015 yrs Influenza Vaccine 12/14/2020 Pneumococcal Vaccine: 65+ 2030 Years (1 of 1 - PPSV23) HIB Vaccines Aged Out No longer eligible based on patient's age to complete this topic Hepatitis A Vaccines Aged Out No longer eligibl e based on patient's age to complete this topic Hepatitis B Vaccines Aged Out No longer eligibl e based on patient's age to complete this topic IPV Vaccines Aged Out No longer eligible based on patient's age to complete this topic Pneumococcal Vaccine: Aged Out No longer eligib le based on patient's age to Pediatrics (0 to 5 Years) complete this topic and At-Risk Patients (6 to 64 Years) documented as of this encounter Results Not on filedocumented in this encounter Visit Diagnoses Diagnosis Bone lesion - Primary Disorder of bone and cartilage, unspeci fied Soft tissue mass Disorders of soft tissue, unspecified Primary osteoarthritis of right knee Primary localized osteoarthrosis, lower leg Chronic pain of right lower extremity documented in this encounter
--- OUTSIDE RECORDS SUMMARY | 2021-02-13 10:40 | CCD | Continuity of Care Document ---
Author Author Pauline WANG MD Organization Unknown Address [address] , [facility] [place] [address] Phone [phone] Care Team Providers Care Fire Extinguisher Technician Name Role Phone Cherie Almendarez R.P.A. AUTM [phone] AUTM Unavailable Problems Description No Information Available [...] lb BMI (Body Mass Index) 39.1 kg/m2 [place] Body Weight 105 lb Weight 93.895 kg BSA (Body Surface Area) 1.92 m2 10/29/2017 3:34pm BP Systolic 128 mmHg BP Diastolic 82 mmHg Height 61 inches 5'1" Weight 208.00 lb BMI (Body Mass Index) 39.3 kg/m2 [place] Body Weight 105 lb Weight 94.349 kg BSA (Body Surface Area) 1.92 m2 Results Description No Information Available Procedures Date Code Description Status 12/28/2020 76922 Office/Outpatient Established Mo d MDM 30-39 Min Completed 10/17/2020 79605 Office/Outpatient New Moderate M DM 45-59 Minutes Completed Medical Devices Description No Information Available Encounters Type Date Location Provider Dx Diagnosis Office Visit 12/28/2020 2:30p [facility] Jeffry Wang MD M17.11 Unilateral primary osteoarthritis, right knee Office Visit 10/17/2020 3:00p [facility] Jeffry Wang MD M17.11 Unilateral primary [...] will be planned for completion with a [employer] program.We will move forward with the booking [...] Please evaluate and treat, as necessary [facility] [address] [address] [phone]
--- OUTSIDE RECORDS SUMMARY | 2021-02-13 10:40 | CCD ---
Author Author [facility] Organization [facility] Address Unknown Phone Unavailable Care Team Providers Care Manager Professional Development Name Role Phone Cherie Rojo Unavailable PROBLEMS Type Condition ICD9-CM Code [id number] Code Onset Dates Condition S tatus W/U Status Risk SNOMED Code Notes Problem Morbid (severe) obesity due to excess calories E66 .01 Active confirmed 614888115 Problem Vitamin D deficiency E55.9 Active confirmed 85786237 Problem Pain in right knee M25.561 Active confirmed 86960649 Problem Nicotine dependence, cigarettes, uncomplicated F17 .210 Active confirmed 965475500 Problem Colon cancer screening Z12.11 Active confirmed 569241242 Problem Mixed hyperlipidemia E78.2 Active confirmed 700956706 Problem Essential hypertension I10 Active confirmed 93756172 Problem Postprocedural hypothyroidism E89.0 Active confirm ed 83582089 Problem Prediabetes R73.03 Active confirmed 25179430 2 Problem Cervical cancer screening Z12.4 Active confirmed 718391832 Problem Encounter for screening mammogram for malignant neoplasm of breast Z12.31 Active confirmed 536209395 Problem Breast cancer screening by mammogram Z12.31 Act radha confirmed 328850871 ALLERGIES Allergen (clinical drug ingredient) Drug/Non Drug Allergy do cumented on EMR Reaction Allergy Type Onset Date Status Penicillin (For Allergies Use Only) Anaphylaxis Drug Aller gy Active ENCOUNTERS from 1965 to 2020-12-18 Encounter Location Date Provider Diagnosis [facility] [address] [place] [address] Nov, Cherie Rojo Postprocedural hypothyroidism E89.0 ; Mo rbid (severe) obesity due to excess calories E66.01 ; Mixed hyperlipidemia E78.2 ; Nicotine dependence, cigarettes, uncomplicated F17.210 ; Vitamin D deficiency E55.9 ; Prediabetes R73.03 ; Essential hypertension I10 and Pain in right knee M25.561 IMMUNIZATIONS Vaccine Route Administration Date Status COVID-19 [...] Education Language: Question Answer Notes Languages spoken: Chadian Spiritism: Question Answer Notes Spiritism cheondoism Sexual Hx: Question Answer Notes Had sex [...] effects, education provided 07/16/2020 REASON FOR REFERRAL from 1965 to 2020-12-18 Reason elevated TSH Diagnosis 1 Postprocedural hypothyroidis m (E89.0) Referral Organization [facility] Bennie Referring Provider First Name Cherie Referring Provider Last Name Alia Referring Provider Specialty Family Medicine Referred Provider Belem Jaramillo Referred Provider Specialty Endocrinology Referral Priority Routine General Notes Kimberly Reid 12/04/2020 3:50:03 PM > faxed VITAL SIGNS Weight 229 lbs Nov, Height 60 in Nov, BMI 44.72 kg/m2 Nov, Heart Rate 97 /min Nov, Respiratory Rate 18 /min Nov, Temperature 98 degrees Fahrenheit Nov, Oximetry 97 Nov, Blood pressure systolic 140 mm Hg Nov, Blood pressure diastolic 78 mm Hg Nov, MEDICATIONS Medication SIG (Take, Route, Frequency, Duration) [...] day(s) July, Active Vitamin D 50 MCG (1999 UT) 1 [...] a day for 30 day s Dec, Active PROCEDURES No Information RESULTS No Results REASON FOR VISIT 2 month with bloodwork before, Reference #:[id number] MEDICAL (GENERAL) HISTORY Type Description Date Medical History Grave's Disease with iodine therapy, 200 6 Medical History hypothyroidism Medical History G4, P2 with 2 spont abortions Medical History nicotine dependence Medical History morbid obesity Medical History hyperlipidemia/hypertriglyceridemia Medical History EKG 10/03 SR, [id number] Medical History ANAY FEV1 82% predicted 2.06 [...] Notes Treatment Notes Treatm ent Clinical Notes Nov, Postprocedural hypothyroidism (ICD-10 - E89.0) 10/03 TSH 2.58, 12/04 115, I am not sure why this was rechecked so close, but pt is adament that she is compliant with medication and that her medication is accurate. will refer to Endo. Nov, Morbid (severe) obesity due to excess calories ( ICD-10 - E66.01) Pt was counselled on the importance of diet and exercise in maintaining a healthy weight and that patients weight currently poses a health risk. Pt verbalizes understanding Nov, Mixed hyperlipidemia (ICD-10 - E78.2) Nov, Nicotine dependence, cigarettes, uncompl icated (ICD-10 - F17.210) Pt counselled heavily on the importance of tobacco abstinence and the dangers not quiting may pose. Discussed various options for cessation with patient. Nov, Vitamin D deficiency (ICD-10 - E55.9) 10/03 Vit 15.7 Nov, Prediabetes (ICD-10 - R73.03) 12/04 glu 109, A1c 6% Nov, Essential hypertension (ICD-10 - I10) Pressures controlled. Nov, Pain in right knee (ICD-10 - M25.561) Nov, Other PAP/Pelvic/CBE WTW - defers repeat at this time.. Refuses IMMs - Enc Tdap. Refuses colonoscopy, will consider in the future. EKG 05/26 1st degree AV block, no priors for comparison. Mammo 10/30 - declines repeat PLAN OF TREATMENT Medication Medication Name Sig Start Date Stop Date Vitamin D 50 MCG (1999 UT) 1 tablet Orally Once a day for 30 day(s) Nov, traMADol HCl 50 MG 1 tablet as needed Orally tw ice daily for knee pain for 30 Days Nov, Treatment Notes Assessment Notes Clinical Notes Postprocedural hypothyroidism 10/03 TSH 2.58, 12/04 115, I am not sure why this was rechecked so close, but pt is adament that she is compliant with medication and that her medication is accurate. will refer to Endo. Morbid (severe) obesity due to excess calories Pt was counselled on the importance of diet and exercise in maintaining a healthy weight and that patients weight currently poses a health risk. Pt verbalizes understanding Nicotine dependence, cigarettes, uncomplicated Pt coun selled heavily on the importance of tobacco abstinence and the dangers not quiting may pose. Discussed various options for cessation with patient. Vitamin D deficiency 10/03 Vit 15.7 Prediabetes 12/04 glu 109, A1c 6% Essential hypertension Pressures controlled. Referrals Referral Date Details elevated TSH, Belem Fish Next Appt Details 6 Months Reason: Provider Name:Cherie Rojo, 2021-06-03 03:30:00 PM, [address], , [place], [address], Insurance Providers Payer Name Payer Address Payer Phone Insured Name Patient Relati onship to Insured Coverage Start Date Coverage End Date [facility] [phone] [facility] [address] [place] MARC self
--- OUTSIDE RECORDS SUMMARY | 2021-02-13 10:40 | CCD | Continuity of Care Document ---
Author Author Pauline WANG MD Organization Unknown Address [address] , [facility] [address] Phone [phone] Care Team Providers Care Supervisor Wood Room Name Role Phone Cherie Almendarez R.P.A. AUTM [phone] AUTM Unavailable Problems Description No Information Available [...] lb BMI (Body Mass Index) 39.1 kg/m2 [place] Body Weight 105 lb Weight 93.895 kg BSA (Body Surface Area) 1.92 m2 10/29/2017 3:34pm BP Systolic 128 mmHg BP Diastolic 82 mmHg Height 61 inches 5'1" Weight 208.00 lb BMI (Body Mass Index) 39.3 kg/m2 [place] Body Weight 105 lb Weight 94.349 kg BSA (Body Surface Area) 1.92 m2 Results Description No Information Available Procedures Date Code Description Status 12/28/2020 20043 Office/Outpatient Established Mo d MDM 30-39 Min Completed 10/17/2020 57378 Office/Outpatient New Moderate M DM 45-59 Minutes Completed Medical Devices Description No Information Available Encounters Type Date Location Provider Dx Diagnosis Office Visit 12/28/2020 2:30p [facility] Jeffry Wang MD M17.11 Unilateral primary osteoarthritis, right knee Office Visit 10/17/2020 3:00p [facility] Jeffry Wang MD M17.11 Unilateral primary [...] will be planned for completion with a Over[employer] program.We will move forward with the booking [...] Please evaluate and treat, as necessary Closed [facility] [address] [address] [phone]
--- OUTSIDE RECORDS SUMMARY | 2021-02-13 10:41 | CCD ---
Author Author [facility] Organization [facility] Address Unknown Phone Unavailable Care Team Providers Care Pilot Supervisor Name Role Phone CHACHO DUTTA Unavailable Unavailable Leticia, Abbe Linares MD Unavailable Unavailable Leticia, Abbe Linares MD Unavailable Unavailable Leticia, Abbe Linares MD Unavailable Unavailable Leticia, Abbe Linares MD Unavailable Unavailable Leticia, Abbe Linares MD Unavailable Unavailable Leticia, Abbe Linares MD Unavailable Unavailable Leticia, Abbe Linares MD Unavailable Unavailable Leticia, Abbe Linares MD Unavailable Unavailable Leticia, Abbe Linares MD Unavailable Unavailable Letciia, Abbe Linares MD Unavailable Unavailable Leticia, Abbe Linares MD Unavailable Unavailable Leticia, Abbe Linares MD Unavailable Unavailable Leticia, Abbe Linares MD Unavailable Unavailable Leticia, Abbe Linares MD Unavailable Unavailable Leticia, Abbe Linares MD Unavailable Unavailable Leticia, Abbe Linares MD Unavailable Unavailable Leticia, Abbe Linares MD Unavailable Unavailable Leticia, Abbe Linares MD Unavailable Unavailable Leticia, Abbe Linares MD Unavailable Unavailable Leticia, Abbe Linares MD Unavailable Unavailable Leticia, A Vijay MD Unavailable Unavailable Leticia, A Vijay MD Unavailable Unavailable Leticia, A Vijay MD Unavailable Unavailable Leticia, A Vijay MD Unavailable Unavailable Leticia, A Vijay MD Unavailable Unavailable Leticia, A Vijay MD Unavailable Unavailable Leticia, A Vijay MD Unavailable Unavailable Leticia, A Vijay MD Unavailable Unavailable Leticia, A Vijay MD Unavailable Unavailable Leticia, A Vijay MD Unavailable Unavailable Leticia, A Vijay MD Unavailable Unavailable Leticia, A Vijay MD Unavailable Unavailable Leticia, A Vijay MD Unavailable Unavailable Leticia, A Vijay MD Unavailable Unavailable Leticia, A Vijay MD Unavailable Unavailable Leticia, A Vijay MD Unavailable Unavailable Leticia, A Vijay MD Unavailable Unavailable Leticia, A Vijay MD Unavailable Unavailable Leticia, A Vijay MD Unavailable Unavailable Leticia, A Vijay MD Unavailable Unavailable Letiica, A Vijay MD Unavailable Unavailable Leticia, A Vijay MD Unavailable Unavailable Leticia, A Vijay MD Unavailable Unavailable Leticia, A Vijay MD Unavailable Unavailable Leticia, A Vijay MD Unavailable Unavailable Leticia, A Vjiay MD Unavailable Unavailable Leticia, A Vijay MD Unavailable Unavailable Leticia, A Vijay MD Unavailable Unavailable Leticia, A Vijay MD Unavailable Unavailable Leticia, A Vijay MD Unavailable Unavailable Leticia, A Vijay MD Unavailable Unavailable Leticia, A Vijay MD Unavailable Unavailable Leticia, A Vijay MD Unavailable Unavailable Leticia, A Vijay MD Unavailable Unavailable Leticia, A Vijay MD Unavailable Unavailable Leticia, A Vijay MD Unavailable Unavailable Leticia, A Vijay MD Unavailable Unavailable Leticia, A Vijay MD Unavailable Unavailable Leticia, A Vijay MD Unavailable Unavailable Leticia, A Vijay MD Unavailable Unavailable Leticia, A Vijay MD Unavailable Unavailable Leticia, A Vijay MD Unavailable Unavailable Leticia, A Vijay MD Unavailable Unavailable Leticia, A Vijay MD Unavailable Unavailable Leticia, A Vijay MD Unavailable Unavailable Leticia, A Vijay MD Unavailable Unavailable Leticia, A Vijay MD Unavailable Unavailable Leticia, A Vijay MD Unavailable Unavailable Leticia, A Vijay MD Unavailable Unavailable Leticia, A Vijay MD Unavailable Unavailable Leticia, A Vijay MD Unavailable Unavailable Leticia, A Vijay MD Unavailable Unavailable Leticia, A Vijay MD Unavailable Unavailable Leticia, A Vijay MD Unavailable Unavailable Leticia, A Vijay MD Unavailable Unavailable Leticia, A Vijay MD Unavailable Unavailable Leticia, A Vijay MD Unavailable Unavailable Leticia, A Vijay MD Unavailable Unavailable Leticia, A Vijay MD Unavailable Unavailable Leticia, A Vijay MD Unavailable Unavailable Leticia, A Vijay MD Unavailable Unavailable Leticia, A Vijay MD Unavailable Unavailable Leticia, A Vijay MD Unavailable Unavailable Leticia, A Vijay MD Unavailable Unavailable Leticia, A Vijay MD Unavailable Unavailable Leticia, A Vijay MD Unavailable Unavailable Leticia, A Vijay MD Unavailable Unavailable Leticia, A Vijay MD Unavailable Unavailable Leticia, A Vijay MD Unavailable Unavailable Leticia, A Vijay MD Unavailable Unavailable Leticia, A Vijay MD Unavailable Unavailable Leticia, A Vijay MD Unavailable Unavailable Leticia, A Vijay MD Unavailable Unavailable Leticia, A Vijay MD Unavailable Unavailable Leticia, A Vijay MD Unavailable Unavailable Leticia, A Vijay MD Unavailable Unavailable Leticia, A Vijay MD Unavailable Unavailable Leticia, A Vijay MD Unavailable Unavailable Leticia, A Vijay MD Unavailable Unavailable Leticia, A Vijay MD Unavailable Unavailable Leticia, A Vijay MD Unavailable Unavailable Leticia, A Vijay MD Unavailable Unavailable Leticia, A Vijay MD Unavailable Unavailable Leticia, A Vijay MD Unavailable Unavailable Leticia, A Vijay MD Unavailable Unavailable Leticia, A Vijay MD Unavailable Unavailable Leticia, A Vijay MD Unavailable Unavailable Leticia, A Vijay MD Unavailable Unavailable Leticia, A Vijay MD Unavailable Unavailable Leticia, A Vijay MD Unavailable Unavailable Leticia, A Vijay MD Unavailable Unavailable Leticia, A Vijay MD Unavailable Unavailable Leticia, A Vijay MD Unavailable Unavailable Leticia, A Vijay MD Unavailable Unavailable Leticia, A Vijay MD Unavailable Unavailable Leticia, A Vijay MD Unavailable Unavailable Leticia, A Vijay MD Unavailable Unavailable Leticia, A Vijay MD Unavailable Unavailable AbbottJeffry MD Unavailable Unavailable Jeffry Abbott MD Unavailable Unavailable Jeffry Abbott MD Unavailable Unavailable Jeffry Abbott MD Unavailable Unavailable Jeffry Abbott MD Unavailable Unavailable Jeffry Abbott MD Unavailable Unavailable Jeffry Abbott MD Unavailable Unavailable Jeffry Abbott MD Unavailable Unavailable Jeffry Abbott MD Unavailable Unavailable Jeffry Abbott MD Unavailable Unavailable CHANLIECCO, Ernie KING MD Unavailable Unavailable CHANLIECCO, Ernie KING MD Unavailable Unavailable CHANLIECCO, Ernie KING MD Unavailable Unavailable CHANLIECCO, Ernie KING MD Unavailable Unavailable CHANLIECCO, C CHRISTINE DAMIAN Unavailable Unavailable CHANLIECCO, C CHRISTINE MD Unavailable Unavailable CHANLIECCO, C CHRISTINE MD Unavailable Unavailable CHANLIECCO, C CHRISTINE MD Unavailable Unavailable Ernie CID MD Unavailable Unavailable Ernie CID MD Unavailable Unavailable Ernie CID MD Unavailable Unavailable Re-disclosure Warning The records that you are about to access may contain information from federally-assisted alcohol or drug abuse programs. If such information is present, then the following federally mandated warning applies: This information has been disclosed to you from records protected by federal confidentiality rules (42 CFR part 2). The federal rules prohibit you from making any further disclosure of this information unless further disclosure is expressly permitted by the written consent of the person to whom it pertains or as otherwise permitted by 42 CFR part 2. A general authorization for the release of medical or other information is NOT sufficient for this purpose. The Federal rules restrict any use of the information to criminally investigate or prosecute any alcohol or drug abuse patient.The records that you are about to access may contain highly sensitive health information, the redisclosure of which is protected by Article 27-F of the [facility] Public Health law. If you continue you may have access to information: Regarding HIV / AIDS; Provided by facilities licensed or operated by the [facility] Office of Mental Health; or Provided by the [facility] Office for People With Developmental Disabilities. If such information is present, then the following [facility] mandated warning applies: This information has been disclosed to you from confidential records which are protected by state law. State law prohibits you from making any further disclosure of this information without the specific written consent of the person to whom it pertains, or as otherwise permitted by law. Any unauthorized further disclosure in violation of state law may result in a fine or long term sentence or both. A general authorization for the release of medical or other information is NOT sufficient authorization for further disc losure. Family History Family Member Name Family Member Gender Family Member Status Date o f Status Description Data Source(s) Unknown Unknown Problem MEDENT ([facility]) Unknown Unknown Problem [facility] ([facility]) Unknown Female Problem MEDENT ([facility]) Unknown Female Problem MEDENT ([facility]) Unknown Female Problem MEDENT ([facility]) Encounters Encounter Providers Location Date Indications Data Source(s ) [place] [address] [facility] [address] 02/04/2021 12:00:00 AM EST eCW1 ([facility]) [place] [address] [facility] [address] 01/25/2021 12:00:00 AM EST eCW1 ([facility]) Outpatient Referrer: Vijay Kelly MD 01/08/2021 12:00:00 AM [facility] Outpatient Referrer: Vijay Kelly MD 01/08/2021 12:00:00 AM [facility] Outpatient Attender: Jeffry Overton/Samantha/Ashvin/Rein dl 12/28/2020 02:30:00 PM EDT MEDENT ([facility], ) [place] [address] [facility] [address] 12/05/2020 12:00:00 AM EDT eCW1 ([facility]) Outpatient [address] [facility] [address] 12/04/2020 12:00:00 AM EDT eCW1 ([facility]) Outpatient Attender: Vijay Kelly MDReferrer: Jeffry cisneros MD [id number] 11/30/2020 12:00:00 AM [facility] Outpatient Attender: Jeffry Overton/Samantha/Ashvin/Rein dl 10/17/2020 03:00:00 PM EDT MEDENT ([facility] Emergency Attender: CHRISTINE CID MDConsultant: KOKO DUTTA 10/07/2020 12:14:00 PM EDT - 10/07/2020 01:58:00 PM EDT [facility] Patient discharged. [place] [address] [facility] [address] 10/01/2020 12:00:00 AM EDT eCW1 ([facility]) Unknown [address] [facility] [address] 09/27/2020 12:00:00 AM EDT eCW1 ([facility]) Unknown [address] [facility] [address] 09/24/2020 12:00:00 AM EDT eCW1 ([facility]) Unknown [address] [facility] [address] 09/20/2020 12:00:00 AM EDT eCW1 ([facility]) Outpatient [address] [facility] [address] 07/16/2020 12:00:00 AM EDT eCW1 ([facility]) Unknown [address] [facility] [address] 06/13/2020 12:00:00 AM EDT eCW1 ([facility]) Outpatient [address] [facility] [address] 01/09/2020 12:00:00 AM EDT eCW1 ([facility]) Unknown [address] [facility] [address] 01/03/2020 12:00:00 AM EDT eCW1 ([facility]) Immunizations Vaccine Date Status Description Data Source(s) COVID-19 dose #2 given elsewhere Unspecified 07/02/2020 03:3 4:00 PM EDT completed eCW1 ([facility]) COVID-19 dose #2 given elsewhere Unspecified 07/02/2020 03:3 4:00 PM EDT completed eCW1 ([facility]) COVID-19 dose #2 given elsewhere Unspecified 07/02/2020 03:3 4:00 PM EDT completed eCW1 ([facility]) COVID-19 dose #2 given elsewhere Unspecified 07/02/2020 03:3 4:00 PM EDT completed eCW1 ([facility]) COVID-19 dose #2 given elsewhere Unspecified 07/02/2020 03:3 4:00 PM EDT completed eCW1 ([facility]) COVID-19 dose #2 given elsewhere Unspecified 07/02/2020 03:3 4:00 PM EDT completed eCW1 ([facility]) COVID-19 dose #2 given elsewhere Unspecified 07/02/2020 03:3 4:00 PM EDT completed eCW1 ([facility]) COVID-19 dose #2 given elsewhere Unspecified 07/02/2020 03:3 4:00 PM EDT completed eCW1 ([facility]) COVID-19 dose #2 given elsewhere Unspecified 07/02/2020 03:3 4:00 PM EDT completed eCW1 ([facility]) COVID-19 VACCINE Moderna 07/02/2020 12:00:00 AM EDT completed NYSIIS Vaccine Series Complete: YESThis Data wa s Submitted to [facility] [employer]. COVID-19 dose #1 given elsewhere Unspecified 06/01/2020 03:3 4:00 PM EDT completed eCW1 ([facility]) COVID-19 dose #1 given elsewhere Unspecified 06/01/2020 03:3 4:00 PM EDT completed eCW1 ([facility]) COVID-19 dose #1 given elsewhere Unspecified 06/01/2020 03:3 4:00 PM EDT completed eCW1 ([facility]) COVID-19 dose #1 given elsewhere Unspecified 06/01/2020 03:3 4:00 PM EDT completed eCW1 ([facility]) COVID-19 dose #1 given elsewhere Unspecified 06/01/2020 03:3 4:00 PM EDT completed eCW1 ([facility]) COVID-19 dose #1 given elsewhere Unspecified 06/01/2020 03:3 4:00 PM EDT completed eCW1 ([facility]) COVID-19 dose #1 given elsewhere Unspecified 06/01/2020 03:3 4:00 PM EDT completed eCW1 ([facility]) COVID-19 dose #1 given elsewhere Unspecified 06/01/2020 03:3 4:00 PM EDT completed eCW1 ([facility]) COVID-19 dose #1 given elsewhere Unspecified 06/01/2020 03:3 4:00 PM EDT completed eCW1 ([facility]) COVID-19 VACCINE Moderna 06/01/2020 12:00:00 AM EDT completed NYSIIS Vaccine Series Complete: NOThis Data was Submitted to [facility] Via [employer]. Medications Medication Brand Name Start Date Product Form Dose Route Admi nistrative Instructions Pharmacy Instructions Status Indications Reaction Description Data Source(s) Acetaminophen 325 MG / Hydrocodone Bitartrate 5 MG Ora l Tablet 5-325 mg HYDROCODONE/ACETAMINOPHEN 02/06/2021 12:00:00 AM EST tablet 30 TAKE ONE TABLET BY MOUTH EVERY 4 HOURS NEEDED FOR MODERATE PAIN (PAIN SCALE 5-7) MAXIMUM DAILY DOSE = 6 TAKE ONE TABLET BY MOUTH EVERY 4 HOURS A S NEEDED FOR MODERATE PAIN (PAIN SCALE 5-7) MAXIMUM DAILY DOSE = 6 SOLD: 02/06/2021 [facility] 200 mcg 01/19/2021 12:00:00 AM EDT tablet 30 TAKE ONE TABLET BY MOUTH EVERY DAY IN THE MORNING ON AN EMPTY STOMACH TAKE ONE TABLET BY MOUTH EVERY DAY IN MORNING ON AN EMPTY STOMACH SOLD: 01/20/2021 [facility] 50 mg 12/05/2020 12:00:00 AM EDT tablet 60 TAKE ONE TABLET BY MOUTH TWICE A DAY FOR KNEE PAIN, MAXIMUM DAILY DOSE = 2 TAKE ONE TABLET BY MOUTH TWICE A DAY FOR KNEE PAIN, MAXIMUM DAILY DOSE = 2 SOLD: 12/06/2020 [facility] Cholecalciferol 1999 UNT Oral Tablet Vitamin D 50 MCG (1999 UT) Vitamin D 50 MCG (1999 UT) 12/04/2020 12:00:00 AM EDT 1.0 {tablet} cabrera spended Vitamin D 50 MCG (1999 UT) eCW1 ([facility]) tramadol hydrochloride 50 MG Oral Tablet traMADol HCl 50 MG traMADol HCl 50 MG 12/04/2020 12:00:00 AM EDT 1.0 {tablet_as_needed} suspended traMADol HCl 50 MG eCW1 ([facility]) Cholecalciferol 2000 UNT Oral Tablet Vitamin D 50 MCG (1999 UT) Vitamin D 50 MCG (1999 UT) 12/04/2020 12:00:00 AM EDT 1.0 {tablet} cabrera spended Vitamin D 50 MCG (1999 UT) eCW1 ([facility]) tramadol hydrochloride 50 MG Oral Tablet traMADol HCl 50 MG traMADol HCl 50 MG 12/04/2020 12:00:00 AM EDT 1.0 {tablet_as_needed} suspended traMADol HCl 50 MG eCW1 ([facility]) tramadol hydrochloride 50 MG Oral Tablet traMADol HCl 50 MG traMADol HCl 50 MG 12/04/2020 12:00:00 AM EDT 1.0 {tablet_as_needed} active traMADol HCl 50 MG eCW1 ([facility]) tramadol hydrochloride 50 MG Oral Tablet traMADol HCl 50 MG traMADol HCl 50 MG 12/04/2020 12:00:00 AM EDT 1.0 {tablet_as_needed} active traMADol HCl 50 MG eCW1 ([facility]) Cholecalciferol 2000 UNT Oral Tablet Vitamin D 50 MCG (1999 UT) Vitamin D 50 MCG (2000 UT) 12/04/2020 12:00:00 AM EDT 1.0 {tablet} ac tive Vitamin D 50 MCG (1999 UT) eCW1 ([facility]) Cholecalciferol 2000 UNT Oral Tablet Vitamin D 50 MCG (1999 UT) Vitamin D 50 MCG (2000 UT) 12/04/2020 12:00:00 AM EDT 1.0 {tablet} ac tive Vitamin D 50 MCG (1999 UT) eCW1 ([facility]) 25 mg 10/02/2020 12:00:00 AM EDT tablet 30 TAKE ONE TABLET BY MOUTH EVERY MORNING WITH FOOD ONCE A DAY TAKE ONE TABLET BY MOUTH EVERY MORNING W ITH FOOD ONCE A DAY SOLD: 10/07/2020 [facility] 200 mcg 09/25/2020 12:00:00 AM EDT tablet 30 TAKE ONE TABLET BY MOUTH EVERY MORNING ON AN EMPTY STOMACH TAKE ONE TABLET BY MOUTH EVERY MORNING O N AN EMPTY STOMACH SOLD: 09/27/2020 [facility] 200 mcg 09/25/2020 12:00:00 AM EDT tablet 30 TAKE ONE TABLET BY MOUTH EVERY MORNING ON AN EMPTY STOMACH TAKE ONE TABLET BY MOUTH EVERY MORNING O N AN EMPTY STOMACH SOLD: 12/09/2020 [facility] 500 mg 09/25/2020 12:00:00 AM EDT tablet 60 TAKE ONE TABLET BY MOUTH TWICE A DAY WITH MEALS TAKE ONE TABLET BY MOUTH TWICE A DAY WITH MEALS SOLD: 2020 [facility] atorvastatin 40 MG Oral Tablet ATORVASTATIN CALCIUM 09/25/2020 1 2:00:00 AM EDT tablet 30 TAKE ONE TABLET BY MOUTH EVERY D AY TAKE ONE TABLET BY MOUTH EVERY DAY SOLD: 09/27/2020 [facility] 40 mg 09/21/2020 12:00:00 AM EDT tablet 5 TAKE ONE TABLET BY MOUTH EVERY DAY TAKE ONE TABLET BY MOUTH EVERY DAY SOLD: 09/22/2020 [facility] 25 mcg 07/18/2020 12:00:00 AM EDT tablet 30 TAKE ONE TABLET BY MOUTH EVERY MORNING ON AN EMPTY STOMACH TAKE ONE TABLET BY MOUTH EVERY MORNING O N AN EMPTY STOMACH SOLD: 07/19/2020 [facility] 200 mcg 07/18/2020 12:00:00 AM EDT tablet 30 TAKE ONE TABLET BY MOUTH EVERY MORNING ON AN EMPTY STOMACH TAKE ONE TABLET BY MOUTH EVERY MORNING O N AN EMPTY STOMACH SOLD: 07/19/2020 [facility] Levothyroxine Sodium 0.025 MG Oral Tablet [Synthroid] Synthroid 25 MCG Synthroid 25 MCG 07/17/2020 12:00:00 AM EDT active Synthroid 25 MCG eCW1 ([facility]) Levothyroxine Sodium 0.025 MG Oral Tablet [Synthroid] Synthroid 25 MCG Synthroid 25 MCG 07/17/2020 12:00:00 AM EDT active Synthroid 25 MCG eCW1 ([facility]) Levothyroxine Sodium 0.025 MG Oral Tablet [Synthroid] Synthroid 25 MCG Synthroid 25 MCG 07/17/2020 12:00:00 AM EDT active Synthroid 25 MCG eCW1 ([facility]) Levothyroxine Sodium 0.025 MG Oral Tablet [Synthroid] Synthroid 25 MCG Synthroid 25 MCG 07/17/2020 12:00:00 AM EDT active Synthroid 25 MCG eCW1 ([facility]) Levothyroxine Sodium 0.025 MG Oral Tablet [Synthroid] Synthroid 25 MCG Synthroid 25 MCG 07/17/2020 12:00:00 AM EDT active Synthroid 25 MCG eCW1 ([facility]) 25 mg 07/17/2020 12:00:00 AM EDT tablet 30 TAKE 1 TABLET BY MOUTH IN THE MORNING WITH FOOD ONCE A DAY TAKE 1 TABLET BY MOUTH IN THE MORNING WI TH FOOD ONCE A DAY SOLD: 07/19/2020 [facility] Levothyroxine Sodium 0.025 MG Oral Tablet [Synthroid] Synthroid 25 MCG Synthroid 25 MCG 07/17/2020 12:00:00 AM EDT active Synthroid 25 MCG eCW1 ([facility]) Levothyroxine Sodium 0.025 MG Oral Tablet [Synthroid] Synthroid 25 MCG Synthroid 25 MCG 07/17/2020 12:00:00 AM EDT active Synthroid 25 MCG eCW1 ([facility]) Levothyroxine Sodium 0.025 MG Oral Tablet [Synthroid] Synthroid 25 MCG Synthroid 25 MCG 07/17/2020 12:00:00 AM EDT active Synthroid 25 MCG eCW1 ([facility]) Levothyroxine Sodium 0.025 MG Oral Tablet [Synthroid] Synthroid 25 MCG Synthroid 25 MCG 07/17/2020 12:00:00 AM EDT active Synthroid 25 MCG eCW1 ([facility]) Chlorthalidone 25 MG Oral Tablet Chlorthalidone 25 MG 2020 12:00:00 AM EDT 1.0 {tablet_in_the_morning_with_food} cabrera spended Chlorthalidone 25 MG eCW1 ([facility]) Chlorthalidone 25 MG Oral Tablet Chlorthalidone 25 MG 2020 12:00:00 AM EDT 1.0 {tablet_in_the_morning_with_food} active Chlorthalidone 25 MG eCW1 ([facility]) Chlorthalidone 25 MG Oral Tablet Chlorthalidone 25 MG 2020 12:00:00 AM EDT 1.0 {tablet_in_the_morning_with_food} active Chlorthalidone 25 MG eCW1 ([facility]) Chlorthalidone 25 MG Oral Tablet Chlorthalidone 25 MG 2020 12:00:00 AM EDT 1.0 {tablet_in_the_morning_with_food} active Chlorthalidone 25 MG eCW1 ([facility]) Chlorthalidone 25 MG Oral Tablet Chlorthalidone 25 MG 2020 12:00:00 AM EDT 1.0 {tablet_in_the_morning_with_food} active Chlorthalidone 25 MG eCW1 ([facility]) Chlorthalidone 25 MG Oral Tablet Chlorthalidone 25 MG 2020 12:00:00 AM EDT 1.0 {tablet_in_the_morning_with_food} cabrera spended Chlorthalidone 25 MG eCW1 ([facility]) Chlorthalidone 25 MG Oral Tablet Chlorthalidone 25 MG 2020 12:00:00 AM EDT 1.0 {tablet_in_the_morning_with_food} active Chlorthalidone 25 MG eCW1 ([facility]) Chlorthalidone 25 MG Oral Tablet Chlorthalidone 25 MG 2020 12:00:00 AM EDT 1.0 {tablet_in_the_morning_with_food} active Chlorthalidone 25 MG eCW1 ([facility]) Chlorthalidone 25 MG Oral Tablet Chlorthalidone 25 MG 2020 12:00:00 AM EDT 1.0 {tablet_in_the_morning_with_food} active Chlorthalidone 25 MG eCW1 ([facility]) tizanidine 4 MG Oral Tablet TIZANIDINE HCL 05/06/2020 12:00:00 AM EST tablet 30 TAKE ONE TABLET BY MOUTH EVERY 8 HOURS NEEDED TAKE ONE TABLET BY MOUTH EVERY 8 HOURS NEEDED SOLD: 05/07/2020 [facility] tizanidine 4 MG Oral Tablet TIZANIDINE HCL 05/06/2020 12:00:00 AM EST tablet 30 TAKE ONE TABLET BY MOUTH EVERY 8 HOURS NEEDED TAKE ONE TABLET BY MOUTH EVERY 8 HOURS NEEDED SOLD: 06/03/2020 [facility] atorvastatin 40 MG Oral Tablet Atorvastatin Calcium 40 MG Atorvastatin Calcium 40 MG 01/09/2020 12:00:00 AM EDT 1.0 {tablet} activ e Atorvastatin Calcium 40 MG eCW1 ([facility]) atorvastatin 40 MG Oral Tablet Atorvastatin Calcium 40 MG Atorvastatin Calcium 40 MG 01/09/2020 12:00:00 AM EDT 1.0 {tablet} suspe nded Atorvastatin Calcium 40 MG eCW1 ([facility]) atorvastatin 40 MG Oral Tablet Atorvastatin Calcium 40 MG Atorvastatin Calcium 40 MG 01/09/2020 12:00:00 AM EDT 1.0 {tablet} activ e Atorvastatin Calcium 40 MG eCW1 ([facility]) atorvastatin 40 MG Oral Tablet Atorvastatin Calcium 40 MG Atorvastatin Calcium 40 MG 01/09/2020 12:00:00 AM EDT 1.0 {tablet} suspe nded Atorvastatin Calcium 40 MG eCW1 ([facility]) Ibuprofen 200 MG Oral Tablet Ibuprofen 200 MG 01/09/2020 12:00:00 AM E DT active Ibuprofen 200 MG eCW1 ([facility]) atorvastatin 40 MG Oral Tablet Atorvastatin Calcium 40 MG Atorvastatin Calcium 40 MG 01/09/2020 12:00:00 AM EDT 1.0 {tablet} activ e Atorvastatin Calcium 40 MG eCW1 ([facility]) Ibuprofen 200 MG Oral Tablet Ibuprofen 200 MG 01/09/2020 12:00:00 AM E DT active Ibuprofen 200 MG eCW1 ([facility]) atorvastatin 40 MG Oral Tablet Atorvastatin Calcium 40 MG Atorvastatin Calcium 40 MG 01/09/2020 12:00:00 AM EDT 1.0 {tablet} activ e Atorvastatin Calcium 40 MG eCW1 ([facility]) Ibuprofen 200 MG Oral Tablet Ibuprofen 200 MG 01/09/2020 12:00:00 AM E DT active Ibuprofen 200 MG eCW1 ([facility]) atorvastatin 40 MG Oral Tablet Atorvastatin Calcium 40 MG Atorvastatin Calcium 40 MG 01/09/2020 12:00:00 AM EDT 1.0 {tablet} activ e Atorvastatin Calcium 40 MG eCW1 ([facility]) atorvastatin 40 MG Oral Tablet Atorvastatin Calcium 40 MG Atorvastatin Calcium 40 MG 01/09/2020 12:00:00 AM EDT 1.0 {tablet} activ e Atorvastatin Calcium 40 MG eCW1 ([facility]) Ibuprofen 200 MG Oral Tablet Ibuprofen 200 MG 01/09/2020 12:00:00 AM E DT active Ibuprofen 200 MG eCW1 ([facility]) atorvastatin 40 MG Oral Tablet Atorvastatin Calcium 40 MG Atorvastatin Calcium 40 MG 01/09/2020 12:00:00 AM EDT 1.0 {tablet} suspe nded Atorvastatin Calcium 40 MG eCW1 ([facility]) Ibuprofen 200 MG Oral Tablet Ibuprofen 200 MG 01/09/2020 12:00:00 AM E DT active Ibuprofen 200 MG eCW1 ([facility]) Ibuprofen 200 MG Oral Tablet Ibuprofen 200 MG 01/09/2020 12:00:00 AM E DT active Ibuprofen 200 MG eCW1 ([facility]) Ibuprofen 200 MG Oral Tablet Ibuprofen 200 MG 01/09/2020 12:00:00 AM E DT active Ibuprofen 200 MG eCW1 ([facility]) atorvastatin 40 MG Oral Tablet Atorvastatin Calcium 40 MG Atorvastatin Calcium 40 MG 01/09/2020 12:00:00 AM EDT 1.0 {tablet} activ e Atorvastatin Calcium 40 MG eCW1 ([facility]) Ibuprofen 200 MG Oral Tablet Ibuprofen 200 MG 01/09/2020 12:00:00 AM E DT active Ibuprofen 200 MG eCW1 ([facility]) atorvastatin 40 MG Oral Tablet Atorvastatin Calcium 40 MG Atorvastatin Calcium 40 MG 01/09/2020 12:00:00 AM EDT 1.0 {tablet} suspe nded Atorvastatin Calcium 40 MG eCW1 ([facility]) Ibuprofen 200 MG Oral Tablet Ibuprofen 200 MG 01/09/2020 12:00:00 AM E DT suspended Ibuprofen 200 MG eCW1 ([facility]) Ibuprofen 200 MG Oral Tablet Ibuprofen 200 MG 01/09/2020 12:00:00 AM E DT suspended Ibuprofen 200 MG eCW1 ([facility]) Ibuprofen 200 MG Oral Tablet Ibuprofen 200 MG 01/09/2020 12:00:00 AM E DT active Ibuprofen 200 MG eCW1 ([facility]) Metformin hydrochloride 500 MG Oral Tablet METFORMIN HCL 01/04/2020 12:00:00 AM EDT tablet 60 TAKE ONE TABLET BY MOUTH TWI CE A DAY WITH MEALS TAKE ONE TABLET BY MOUTH TWICE A DAY WITH MEALS SOLD: 01/05/2020 [facility] 500 mg 01/04/2020 12:00:00 AM EDT tablet 60 TAKE ONE TABLET BY MOUTH TWICE A DAY WITH MEALS TAKE ONE TABLET BY MOUTH TWICE A DAY WITH MEALS SOLD: 03/03/2020 [facility] Metformin hydrochloride 500 MG Oral Tablet METFORMIN HCL 01/04/2020 12:00:00 AM EDT tablet 60 TAKE ONE TABLET BY MOUTH TWI CE A DAY WITH MEALS TAKE ONE TABLET BY MOUTH TWICE A DAY WITH MEALS SOLD: 04/23/2020 [facility] 200 mcg 12/13/2019 12:00:00 AM EDT tablet 30 TAKE ONE TABLET BY MOUTH EVERY MORNING TAKE ONE TABLET BY MOUTH EVERY MORNING SOLD: 04/23/2020 [facility] 200 mcg 12/13/2019 12:00:00 AM EDT tablet 30 TAKE ONE TABLET BY MOUTH EVERY MORNING TAKE ONE TABLET BY MOUTH EVERY MORNING SOLD: 03/03/2020 [facility] 200 mcg 12/13/2019 12:00:00 AM EDT tablet 30 TAKE ONE TABLET BY MOUTH EVERY MORNING TAKE ONE TABLET BY MOUTH EVERY MORNING SOLD: 06/03/2020 [facility] 200 mcg 12/13/2019 12:00:00 AM EDT tablet 30 TAKE ONE TABLET BY MOUTH EVERY MORNING TAKE ONE TABLET BY MOUTH EVERY MORNING SOLD: 01/27/2020 [facility] Insurance Providers Payer name Policy type / Coverage type Policy ID Covered constitution party ID Covered constitution party's relationship to ellis Policy Ellis Plan Information BLUE CROSS CARPIO PLAN [id number] SP [id number] [place] PPO 302/307 [id number] SP [id number] [facility] Community Plan Medigap Part B [id number] [facility] Community Plan Medigap Part B [id number] [place] [id number] [place] [id number] Self Y [id number] [facility] Essential Comm Plan Medicaid F [id number] SELF [id number] [place] F [id number] SELF 7 [id number] [facility] COMMUNITY PLAN MCDO [id number] SP [id number] ANSI-Medicaid [id number] ANSI-Commercial [id number] ANSI-Commercial [id number] ANSI-Medicaid [id number] ANSI-Commercial [id number] ANSI-Medicaid [id number] ANSI-Commercial [id number] ANSI-Medicaid [id number] [facility] Health Maintenance Organization ([facility]) [id number] Self [id number] ANSI-Commercial [id number] ANSI-Medicaid [id number] ANSI-Medicaid [id number] ANSI-Commercial [id number] ANSI-Medicaid [id number] ANSIS[employer]ioCom[employer] [id number] ANSI-Medicaid [id number] ANSISykioCommercial [id number] [employer] [id number] [facility]io[facility]icaid [id number] [employer] [id number] [facility]icaid [id number] [facility] [id number] [employer] [id number] [employer] [id number] [facility] [id number] [facility]OSPITALTourlandishMedicaid [id number] [facility] HOSPITALIBad [facility] [id number] [facility]ITALIB[facility] [employer] [employer] [id number] [facility]icaid [id number] [employer] [id number] [facility]icaid [id number] [facility]ITALISykioCommercial [id number] [facility]OS[facility]ITALISykioMedicaid [id number] [facility] Health Maintenance Organization (O) [id number] Self [id number] ANSI-Medicaid [id number] ANSI-Commercial [id number] ANSI-Commercial [id number] ANSI-Medicaid [id number] [facility] Comm Plan Medicaid F [id number] SELF [id number] [facility] [id number] SP [id number] [id number] SP [id number] EXCELLUS BCBS B [id number] S YNC [id number] O BLUE [id number] SP [id number] O BLUE [id number] SP [id number] [place]BS [place] PPO 302/307 [id number] SP [id number] O BLUE [id number] SP [id number] BCBS [place] PPO 302/307 [id number] SP [id number] BCBS OF [place] 306/806 [id number] SP [id number] [facility] COMMUNITY PLAN [facility] [id number] SP [id number] BCBS/Blue Card Commercial [id number] Self BCBS OF [place] 306/806 [id number] SP [id number] [facility] Health Maintenance Organization (O) [id number] Self [facility]) O [id number] S [id number] EXCELLUS BCBS P [id number] S [id number] HMO BLUE [id number] SP [id number] BCBS [place] PPO 302/307 [id number] SP [id number] BCBS [place] PPO 302/307 [id number] SP [id number] BCBS OF [place] 306/806 [id number] SP [id number] BCBS OF [place] 306/806 [id number] SP [id number] EMPIRE BLUE CROSS BLUE SHIELD -O/P [id number] BCBS OF [place] 306/806 [id number] SP [id number] Self Pay P none S none [facility] COMMUNITY PLAN [facility] [id number] SP [id number] [facility] Maintenance Organization ([facility]) [id number] Self [id number] [facility] Maintenance [facility] ([facility]) [id number] Self [id number] Problems, Conditions, and Diagnoses Code Display Name Description Problem Type Effective Dates Data Source(s) 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 Diagnosis 10/07/2020 12:14:00 PM EDT [facility] Z5321 Procedure and treatment not carried out due to patient leaving prior to being seen by health care provider Procedure and treatment not carried out due to patient leaving prior to being seen by health care provider Diagnosis 10/07/2020 12:14:00 PM EDT [facility] J96136 Nicotine dependence, cigarettes, uncompl icated Nicotine dependence, cigarettes, uncomplicated Diagnosis 10/07/2020 12:14:00 PM EDT [facility] I10 Essential (primary) hypertension Essential (primary) h ypertension Diagnosis 10/07/2020 12:14:00 PM EDT [facility] E039 Hypothyroidism, unspecified Hypothyroidism, unspecifie d Diagnosis 10/07/2020 12:14:00 PM EDT [facility] Y28203 Pain in right knee Pain in right knee Diagnosis 12:14:00 PM EDT [facility] I60768 Pain in right lower leg Pain in right lower leg Diagno sis 10/07/2020 12:14:00 PM EDT [facility] M17.11 [id number] Arthritis of knee, right Problem 01/25/2021 12:00:00 AM EST eCW1 ([facility]) I10 [id number] Essential hypertension Problem 07/16/2020 12 :00:00 AM EDT eCW1 ([facility]) Z12.31 [id number] Breast cancer screening by mammogram Prob jag 01/13/2020 12:00:00 AM EDT eCW1 ([facility]) Z12.11 [id number] Colon cancer screening Problem 01/09/2020 12 :00:00 AM EDT eCW1 ([facility]) Z12.31 [id number] Encounter for screen ing mammogram for malignant neoplasm of breast Problem 01/09/2020 12:00:00 AM EDT eCW1 ([facility]) Z12.4 [id number] Cervical cancer screening Problem 01/09/2020 12:00:00 AM EDT eCW1 ([facility]) Surgeries/Procedures Procedure Description Date Indications Data Source(s) OFFICE OUTPATIENT VISIT 25 MINUTES 12/28/2020 12:00:00 AM EDT RAJANI ([facility], ) OFFICE OUTPATIENT NEW 45 MINUTES 10/17/2020 12:00:00 A M EDT RAJANI ([facility]) ECG ROUTINE ECG W/LEAST 12 LDS W/I&R 10/01/2020 12:00: 00 AM EDT eCW1 ([facility]) Results ID Date Data Source Comprehensive Metabolic Profile (CMP) 01/25/2021 12:00:00 AM EST eCW1 ([facility]) Name Value Range Interpretation Code Description Data Melanie rce(s) Supporting Document(s) 92 70-100 GLUCOSE, FASTING eCW1 ([facility]) 17 7-18 BLOOD UREA NITROGEN eCW1 ([facility]) 137 136-145 SODIUM LEVEL eCW1 ([facility]) > 60.0 >51 GLOMERULAR FILTRATION RATE eCW 1 ([facility]) 0.78 0.55-1.30 CREATININE FOR GFR eCW1 ([facility]) 4.4 3.5-5.1 POTASSIUM SERUM eCW1 ([facility]) 100 98-107 CHLORIDE LEVEL eCW1 ([facility]) 29 21-32 CARBON DIOXIDE LEVEL eCW1 ([facility]) 116 45-117 ALKALINE PHOSPHATASE eCW1 ([facility]) 20 12-78 ALT/SGPT eCW1 ([facility]) 9.5 8.5-10.1 CALCIUM LEVEL eCW1 ([facility]) 11 7-37 AST/SGOT eCW1 ([facility]) 8.0 6.4-8.2 TOTAL PROTEIN eCW1 ([facility]) 0.1 0.2-1.0 BILIRUBIN,TOTAL eCW1 ([facility]) 0.8 1.2-2.2 ALBUMIN/GLOBULIN RATIO eCW1 ([facility]) 3.5 3.2-5.2 ALBUMIN eCW1 ([facility]) ID Date Data Source CBC with Differential 01/25/2021 12:00:00 AM EST eCW1 ([facility]) Name Value Range Interpretation Code Description Data Melanie rce(s) Supporting Document(s) 9.1 4.0-10.0 WHITE BLOOD COUNT eCW1 ([facility]) 4.91 4.00-5.40 RED BLOOD COUNT eCW1 ([facility]) 46.3 36.0-47.0 HEMATOCRIT eCW1 ([facility]) 94.3 80.0-96.0 MEAN CORPUSCULAR VOLUME e CW1 ([facility]) 14.8 12.0-15.5 HEMOGLOBIN eCW1 ([facility] hospital) 13.2 11.5-14.5 RED CELL DISTRIBUTION WID TH eCW1 ([facility]) 30.1 27.0-33.0 MEAN CORPUSCULAR HEMOGLOB IN eCW1 ([facility]) 32.0 32.0-36.5 MEAN CORPUSCULAR HGB CONC eCW1 ([facility]) 25.9 24.0-44.0 LYMPH % eCW1 ([facility]) 393 150-450 PLATELET COUNT, AUTOMATED eCW1 ([facility]) 13.8 2.0-8.0 MONO % eCW1 ([facility]) 57.3 36.0-66.0 NEUTROPHILS % eCW1 ([facility]) 2.4 1.5-5.0 LYMPH # eCW1 ([facility]) 1.1 0.0-1.0 BASO % eCW1 ([facility]) 1.5 0.0-3.0 EOS % eCW1 ([facility]) 5.2 1.5-8.5 NEUTROPHILS # eCW1 ([facility]) 0.1 0.0-0.5 EOS # eCW1 ([facility]) 1.3 0.0-0.8 MONO # eCW1 ([facility]) 0.1 0.0-0.2 BASO # eCW1 ([facility]) ID Date Data Source [id number] 11/30/2020 04:01:00 PM [facility] Name Value Range Interpretation Code Description Data Melanie rce(s) Supporting Document(s) Progress Note [facility] [id number] lbm [file] [id number]== ID Date Data Source [id number] 10/07/2020 12:14:00 PM EDT [facility] 1 Medication Reconciliation Report [facility] Emergency Department [address] [place] [address] Phone #: ext- [phone] 10/07/2020 12:03 Patient: NETTA MARC Sex: F : 1965 Age: 55yWeight: 90.7 kgHeight/Length: 61 in.BMI: 37.8ALLERGIES: Amoxicillin, Cillins, PenicillinsThe patient's Home Medications are listed below:THE FOLLOWING MEDICATIONS NEED TO BE RECONCILED: Atorvastatin Calcium Oral (40 mg), daily Levothyroxine Sodium Oral 200 mcg, daily metFORMIN HCl Oral 500 mg, dailyThe source(s) of the original Home Medication information:Not obtained.The following Medications were given to the patient in the Emergency Department:None.The following Medications were prescribed to the patient:None. Name Value Range Interpretation Code Description Data Melanie rce(s) Supporting Document(s) ID Date Data Source [id number] 10/07/2020 12:14:00 PM EDT [facility] 1 Medication Administration Record [facility] Emergency Department [address] [place] [address] Phone #: ext- [phone] 10/07/2020 12:03 Patient: NETTA MARC Sex: F : 1965 Age: 55yWeight: 90.7 kgHeight/Length: 61 inBMI: 37.8ALLERGIES: Cillins, Penicillins, AmoxicillinDate/Time Medication Administered Medication Ordered Name Value Range Interpretation Code Description Data [facility](s) Supporting Document(s) ID Date Data Source [id number] 10/07/2020 12:14:00 PM EDT [facility] 1 Clinical Report - Nurses [facility] Emergency Department [address] [place] [address] Phone #: ext- [phone] 10/07/2020 12:03 Patient: NETTA MARC Sex: F : 1965 Age: 55yTRIAGEArrived by private vehicle. Historian: patient.Acuity: LEVEL 3.Chief Complaint: RIGHT LOWER EXTREMITY PAIN.Alert. No acute distress.No injury occurred. Onset. (1 weeks). ( PT reports having pain in her posterior knee that radiates downto her right foot. The pain is getting worse and tylenol does not help. She denies any injury. [facility]. She just picked up her prescription today pb unknown diuretic.). 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 Seen within the last 30 days at another facility in the ED; seen for similar symptoms; CTdone.SEPSIS SCREEN: SIRS SCREEN NEGATIVE. SEPSIS SCREEN NEGATIVE. No suspected or confirmedsigns of infection present.TATUM COMA SCORE: 15- eyes open- spontaneous (4); best verbal response- oriented (5); bestmotor response- obeys commands (6). --12:12 10/07/20 Magalie Mart R.N.12:06 10/07/20. BP: 136/76. HR: 88. RR: 18. O2 saturation: 96%. Temp: 98.7 F. Pain level now 08/23.--12:12 10/07/20 Magalie Mart R.N.Weight: 90.7 kg stated. Height/Length: 61 inches Per Patient. BMI: 37.8. --12:09 10/07/20 Magalie Mart R.N.MedicationsLevothyroxine Sodium Oral 200 mcg, daily. --12:12 10/07/20 Magalie Mart R.N. metFORMIN HCl Oral 500 mg, daily. --12:12 10/07/20 Magalie Mart R.N. Atorvastatin Calcium Oral (Tablet 40 mg), daily. --12:12 10/07/20 Magalie Mart R.N.AllergiesAmoxicillin. --12:11 10/07/20 Magalie Mart R.N.Penicillins. --12:11 10/07/20 Magalie Mart R.N.Cillins. --12:11 10/07/20 Magalie Mart R.N.PROBLEMS:Hypothyroidism. 2 Clinical Report - Nurses [facility] Emergency Department [address] [place] [address] Phone #: jbi- [phone] 10/07/2020 12:03 [id number] Sex[facility] : 1965 Age: 55y Hypertension. --12:12 10/07/20 Magalie Mart R.N. ADDITIONAL SURGERIES: Knee Surgery. --12:12 10/07/20 Magalie Mart R.N. History PAST MEDICAL HX: Immunizations: up-to-date. SOCIAL HX: Light tobacco smoker- less than 1/2 a pack per day. No alcohol use or drug use. The patient was offered HIV testing but declined and hepatitis C testing but declined. The patient has not traveled outside the [place] Infectious disease exposure: The patient was not exposed to C-diff, MRSA, VRE, CRE or Coronavirus. SELF HARM ASSESSMENT: Self harm assessment was performed. The patient answered "no" to the question(s) "Have you recently felt down, depressed, or hopeless?", "Do you have thoughts of harming or killing yourself?", "Do you have a plan for harming or killing yourself?", "Have you recently had thoughts about harming or killing others?", "Do you have any dangerous items in your possession?", "Have you noticed less interest or pleasure in doing things?", "Are you here because you tried to hurt yourself?" and "Have you ever tried to hurt yourself before today?". ABUSE ASSESSMENT: No report of abuse. NUTRITIONAL RISK ASSESSMENT: The nutritional risk assessment revealed no deficiencies. FUNCTIONAL ASSESSMENT: Functional assessment: no impairments noted. LEARNING NEEDS ASSESSMENT: The l earning needs assessment revealed no barriers. FALL RISK ASSESSMENT: Fall risk assessment completed. No risk factors identified. SKIN INTEGRITY ASSESSMENT: Skin integrity risk assessment completed. No skin integrity risk identified. --12:12 10/07/20 Magalie Mart R.N. Interventions Identification and allergy band on patient. To treatment room. --12:12 10/07/20 Magalie Mart R.N.DISPOSITION / DISCHARGE late entry - 13:57 10/07/20. Departure time: 13:57 10/07/2020. The patient left the Emergency Department without being seen by a physician and completion of treatment. The patient appears to be alert, oriented x4, coherent and in no acute distress. The patient notified staff prior to leaving the department and stated is leaving due to the long waiting time. Notified the ED physician of patient departure. Prior to leaving, she was advised to return if needed. She was informed of the risks of leaving and verbalized understanding of these risks. She left the Emergency Department ambulatory and via private vehicle. --15:38 10/07/20 Kerline Romero RN. 3 Clinical Report - Nurses [facility] Emergency Department [address] [place] [address] Phone #: ext- [phone] 10/07/2020 12:03 [id number] Sex: F : 1965 Age: 55yLocked/Released at 10/07/2020 15:39 by Kerline Romero, RN Name Value Range Interpretation Code Description Data Melanie rce(s) Supporting Document(s) ID Date Data Source TSH 10/01/2020 12:00:00 AM EDT eCW1 ([facility]) Name Value Range Interpretation Code Description Data Melanie rce(s) Supporting Document(s) 2.580 0.358-3.740 THYROID STIMULATING HORM ONE eCW1 ([facility]) ID Date Data Source FREE T4 & TSH PANEL 07/16/2020 12:00:00 AM EDT eCW1 ([facility]) Name Value Range Interpretation Code Description Data Melanie rce(s) Supporting Document(s) 18.200 0.358-3.740 THYROID STIMULATING HORM ONE eCW1 ([facility]) 0.77 0.76-1.46 FREE T4 eCW1 ([facility]) ID Date Data Source LIPID PANEL (CARDIAC RISK) 01/04/2020 06:19:48 AM EDT eCW1 ( [facility]) Name Value Range Interpretation Code Description Data Melanie rce(s) Supporting Document(s) Triglyceride [Mass/volume] in Serum or Plasma by calculation 254 TRIGLYCERIDES LEVEL eCW1 ([facility]) Cholesterol [Moles/volume] in Serum or Plasma 263 CHOLESTEROL LEVEL eCW1 ([facility]) Cholesterol in LDL [Mass/volume] in Serum or Plasma by calculation 167 LDL CHOLESTEROL eCW1 ([facility]) 218 NON-HDL-C eCW1 ([facility]) Cholesterol in HDL [Moles/volume] in Serum or Plasma 45 HDL CHOLESTEROL eCW1 ([facility]) 5.844 CHOLESTEROL RISK RATIO eCW1 ([facility]) ID Date Data Source PTH INTACT 01/04/2020 06:19:40 AM EDT eCW1 ([facility]) Name Value Range Interpretation Code Description Data Melanie rce(s) Supporting Document(s) 39.0 PTH INTACT eCW1 ([facility]) ID Date Data Source VITAMIN D 25-HYDROXY 01/04/2020 06:19:33 AM EDT eCW1 ([facility]) Name Value Range Interpretation Code Description Data Melanie rce(s) Supporting Document(s) 18.2 TOTAL 25(OH) VITAMIN D eCW1 ([facility]) ID Date Data Source [id number] 01/04/2020 06:18:44 AM EDT eCW1 ([facility]) Name Value Range Interpretation Code Description Data Melanie rce(s) Supporting Document(s) Microalbumin/Creatinine [Mass Ratio] in Urine 68.9 CREATININE, URINE eCW1 ([facility]) Albumin/Creatinine [Mass Ratio] in Urine < 5.0 MALB URINE SIEMENS eCW1 ([facility]) Microalbumin/Creatinine [Ratio] in Urine 7.2 RG/CREAT RATIO eCW1 ([facility]) Procedure Social History Code Duration Value Status Description Data Source(s ) Smoking 01/25/2021 12:00:00 AM EST Current Smoker completed Curre nt Smoker eCW1 ([facility]) Smoking 01/25/2021 12:00:00 AM EST Current Smoker completed Curre nt Smoker eCW1 ([facility]) Smoking 12/04/2020 12:00:00 AM EDT Current Smoker completed Curre nt Smoker eCW1 ([facility]) Smoking 12/04/2020 12:00:00 AM EDT Current Smoker completed Curre nt Smoker eCW1 ([facility]) Smoking 10/01/2020 12:00:00 AM EDT Current Smoker completed Curre nt Smoker eCW1 ([facility]) Smoking 07/16/2020 12:00:00 AM EDT Current Smoker completed Curre nt Smoker eCW1 ([facility]) Smoking 07/16/2020 12:00:00 AM EDT Current Smoker completed Curre nt Smoker eCW1 ([facility]) Smoking 07/16/2020 12:00:00 AM EDT Current Smoker completed Curre nt Smoker eCW1 ([facility]) Smoking 07/16/2020 12:00:00 AM EDT Current Smoker completed Curre nt Smoker eCW1 ([facility]) Smoking 01/09/2020 12:00:00 AM EDT Current Smoker completed Curre nt Smoker eCW1 ([facility]) Smoking 01/09/2020 12:00:00 AM EDT Current Smoker completed Curre nt Smoker eCW1 ([facility]) Vital Signs ID Date Data Source UNK Name Value Range Interpretation Code Description Data Source(s) Body weight 226 [lb_av] 226 [lb_av] eCW1 ([facility]) Body height 60 [in_i] 60 [in_i] eCW1 ([facility]) Body mass index (BMI) [Ratio] 44.13 kg/m2 44.13 kg/m2 eCW1 ([facility]) Heart rate 106 /min 106 /min eCW1 ([facility]) Respiratory rate 22 /min 22 /min eCW1 ([facility]) Body temperature 97.4 [degF] 97.4 [degF] eCW1 ( [facility]) Systolic blood pressure 108 mm[Hg] 108 mm[Hg] e CW1 ([facility]) Diastolic blood pressure 76 mm[Hg] 76 mm[Hg] eCW1 ([facility]) Body weight 229 [lb_av] 229 [lb_av] eCW1 ([facility]) Body height 60 [in_i] 60 [in_i] eCW1 ([facility]) Body mass index (BMI) [Ratio] 44.72 kg/m2 44.72 kg/m2 W1 ([facility]) Heart rate 97 /min 97 /min eCW1 ([facility]) Respiratory rate 18 /min 18 /min eCW1 ([facility]) Body temperature 98 [degF] 98 [degF] eCW1 ([facility]) Systolic blood pressure 140 mm[Hg] 140 mm[Hg] e CW1 ([facility]) Diastolic blood pressure 78 mm[Hg] 78 mm[Hg] eCW1 ([facility]) Body temperature 98.6 [degF] 98.6 [degF] [facility] ([facility], ) Body weight 93.895 kg 93.895 kg [facility] ([facility]) Body surface area Derived from formula 1.92 m2 1.92 m2 [facility] ([facility]) Body height 61 [in_i] 61 [in_i] [facility] ([facility]) 5'1" Body weight 207.00 [lb_av] 207.00 [lb_av] MEDEN T ([facility]) Body mass index (BMI) [Ratio] 39.1 kg/m2 39.1 k g/m2 [facility] ([facility]) [place] body weight 105 [lb_av] 105 [lb_av] MEDEN T ([facility]) Systolic blood pressure 124 mm[Hg] 124 mm[Hg] e CW1 ([facility]) Body weight 232 [lb_av] 232 [lb_av] eCW1 ([facility]) Body height 60 [in_i] 60 [in_i] eCW1 ([facility]) Body mass index (BMI) [Ratio] 45.30 kg/m2 45.30 kg/m2 [facility] ([facility]) Heart rate 93 /min 93 /min eCW1 ([facility]) Respiratory rate 18 /min 18 /min eCW1 ([facility]) Body temperature 97.4 [degF] 97.4 [degF] eCW1 ( [facility]) Diastolic blood pressure 84 mm[Hg] 84 mm[Hg] eCW1 ([facility]) Body weight 230 [lb_av] 230 [lb_av] eCW1 ([facility]) Body height 60 [in_i] 60 [in_i] eCW1 ([facility]) Body mass index (BMI) [Ratio] 44.91 kg/m2 44.91 kg/m2 eCW1 ([facility]) Heart rate 98 /min 98 /min eCW1 ([facility]) Respiratory rate 20 /min 20 /min eCW1 ([facility]) Body temperature 97.8 [degF] 97.8 [degF] eCW1 ( [facility]) Systolic blood pressure 128 mm[Hg] 128 mm[Hg] e CW1 ([facility]) Diastolic blood pressure 88 mm[Hg] 88 mm[Hg] eCW1 ([facility]) Body weight 221.0 [lb_av] 221.0 [lb_av] eCW1 ([facility]) Body height 60 [in_i] 60 [in_i] eCW1 ([facility]) Body mass index (BMI) [Ratio] 43.16 kg/m2 43.16 kg/m2 eCW1 ([facility]) Heart rate 93 /min 93 /min eCW1 ([facility]) Respiratory rate 18 /min 18 /min eCW1 ([facility]) Body temperature 96.9 [degF] 96.9 [degF] eCW1 ( [facility]) Systolic blood pressure 140 mm[Hg] 140 mm[Hg] e CW1 ([facility]) Diastolic blood pressure 82 mm[Hg] 82 mm[Hg] eCW1 ([facility]) Patient Treatment Plan of Care Planned Activity Planned Date Details Description Data Source (s) Cholecalciferol 2000 UNT Oral Tablet 12/04/2020 12:00:00 AM EDT eCW1 ([facility]) tramadol hydrochloride 50 MG Oral Tablet 12/04/2020 12:00:00 AM EDT eCW1 ([facility]) Cholecalciferol 2000 UNT Oral Tablet 12/04/2020 12:00:00 AM EDT eCW1 ([facility]) tramadol hydrochloride 50 MG Oral Tablet 12/04/2020 12:00:00 AM EDT eCW1 ([facility]) Levothyroxine Sodium 0.025 MG Oral Tablet [Synthroid] 07/17/2020 12:00:00 AM EDT eCW1 ([facility]) Levothyroxine Sodium 0.025 MG Oral Tablet [Synthroid] 07/17/2020 12:00:00 AM EDT eCW1 ([facility]) Levothyroxine Sodium 0.025 MG Oral Tablet [Synthroid] 07/17/2020 12:00:00 AM EDT eCW1 ([facility]) Levothyroxine Sodium 0.025 MG Oral Tablet [Synthroid] 07/17/2020 12:00:00 AM EDT eCW1 ([facility]) Chlorthalidone 25 MG Oral Tablet 07/16/2020 12:00:00 AM EDT eCW1 ([facility]) Chlorthalidone 25 MG Oral Tablet 07/16/2020 12:00:00 AM EDT eCW1 ([facility]) Chlorthalidone 25 MG Oral Tablet 07/16/2020 12:00:00 AM EDT eCW1 ([facility]) Chlorthalidone 25 MG Oral Tablet 07/16/2020 12:00:00 AM EDT eCW1 ([facility]) Chlorthalidone 25 MG Oral Tablet 07/16/2020 12:00:00 AM EDT eCW1 ([facility]) atorvastatin 40 MG Oral Tablet 01/09/2020 12:00:00 AM EDT eCW1 ([facility]) atorvastatin 40 MG Oral Tablet 01/09/2020 12:00:00 AM EDT eCW1 ([facility]) atorvastatin 40 MG Oral Tablet 01/09/2020 12:00:00 AM EDT eCW1 ([facility]) Ibuprofen 200 MG Oral Tablet 01/09/2020 12:00:00 AM EDT eCW1 ([facility]) atorvastatin 40 MG Oral Tablet 01/09/2020 12:00:00 AM EDT eCW1 ([facility]) Ibuprofen 200 MG Oral Tablet 01/09/2020 12:00:00 AM EDT eCW1 ([facility])
== END 2021-02-06 17:00 | disposition home health service (06) ==
LOC: M SDC 06:12 → M MS5PR 06:13 → M SDC 02-06 17:00
PROVIDERS: ADMIT Internal Medicine; ATTEND Internal Medicine
DX: M17.11 Unilateral primary osteoarthritis, right knee (principal); E03.9 Hypothyroidism, unspecified; F17.218 Nicotine dependence, cigarettes, with other nicotine-induced disorders; Z79.899 Other long term (current) drug therapy; Z88.0 Allergy status to penicillin; Z88.5 Allergy status to narcotic agent
CPT/HCPCS: 27447; 36415; 73560; 80048; 83735; 85027; 88304; 88311; 96365; 96366; 97116; 97161; 97530; C1776; J1100; J1885; J2250; J2370; J2405; J3010; J3370

== ENCOUNTER → 2021-02-08 | Outpatient (REF) | payer BC ==
[~2021-02-08] MED LIST changes: -ACETAMINOPHEN 500 MG TAB PO ONE; +ASPI-551 PO; +COLA100C5 PO; +FERR1TAB8 PO; +HYDR-3715 PO; -NAPROXEN 250 MG TAB PO ONE; -NS 1,000 ML IV ONE; -PREGABALIN 25 MG CAP (LYRICA) PO ONE; -ROPIVA 125MG/EPINEPH 0.25MG/CLONID 40MCG/KETOR 15MG IN NS 50ML SYRINGE PA ONE; -TRANEXAMIC ACID INJection 1,000 MG in NS 50 ML IV ONE; -dexameTHASONE 4 MG/ML 1ML VIAL (J1100 PER 1MG) IV ONE
[2021-02-08 12:07] LABS: BASO # 0.1 10^3/uL (0.0-0.2); EOS # 0.2 10^3/uL (0.0-0.5); EOS % 1.5 % (0.0-3.0); HEMATOCRIT 42.5 % (36.0-47.0); HEMOGLOBIN 13.9 g/dl (12.0-15.5); LYMPH # 1.9 10^3/uL (1.5-5.0); LYMPH % 19.1 % (24.0-44.0); MEAN CORPUSCULAR HEMOGLOBIN 30.3 pg (27.0-33.0); MEAN CORPUSCULAR HGB CONC 32.7 g/dl (32.0-36.5); MEAN CORPUSCULAR VOLUME 92.6 fl (80.0-96.0); MONO # 1.1 10^3/uL (0.0-0.8); MONO % 11.4 % (2.0-8.0); NEUTROPHILS # 6.5 10^3/uL (1.5-8.5); NEUTROPHILS % 66.7 % (36.0-66.0); PLATELET COUNT, AUTOMATED 392 10^3/uL (150-450); RED BLOOD COUNT 4.59 10^6/uL (4.00-5.40); WHITE BLOOD COUNT 9.8 10^3/uL (4.0-10.0)
[2021-02-08 12:45] LABS: BLOOD UREA NITROGEN 14 MG/DL (7-18); CALCIUM LEVEL 9.2 MG/DL (8.5-10.1); CARBON DIOXIDE LEVEL 27 MEQ/L (21-32); CHLORIDE LEVEL 104 MEQ/L (98-107); CREATININE FOR GFR 0.61 MG/DL (0.55-1.30); GLOMERULAR FILTRATION RATE > 60.0 (>51); GLUCOSE, FASTING 110 MG/DL (70-100); POTASSIUM SERUM 5.1 MEQ/L (3.5-5.1); SODIUM LEVEL 137 MEQ/L (136-145)
== END ==
LOC: M LAB REF 11:57 → M SHH 11:57
PROVIDERS: ATTEND Orthopaedic Surgery Adult Reconstructive Orthopaedic Surgery
DX: M17.11 Unilateral primary osteoarthritis, right knee (principal)

== ENCOUNTER → 2021-02-20 | Outpatient (CLI) | payer BC ==
--- NOTE | 2021-02-20 09:12 | REP ---
INDICATION: RT TKA. COMPARISON: None. TECHNIQUE: AP, lateral, sunrise views of the right knee FINDINGS: Total knee replacement. Visualized osseous structures are intact. Orthopedic hardware in satisfactory position. IMPRESSION: Status post satisfactory right knee replacement. <Electronically signed by Jax Montoya > 02/20/21 [id number]
== END ==
LOC: M SOG 08:27
PROVIDERS: ATTEND Orthopaedic Surgery Adult Reconstructive Orthopaedic Surgery
DX: Z96.651 Presence of right artificial knee joint (principal)

== ENCOUNTER → 2021-10-10 | Outpatient (REF) | payer BC | LOC: M LAB REF 16:28 | PROVIDERS: ATTEND Nurse Practitioner Family | DX: Z53.9 Procedure and treatment not carried out, unspecified reason (principal) ==

== ENCOUNTER → 2022-04-17 | Outpatient (REF) | payer BC ==
[2022-04-17 17:35] LABS: BASO # 0.1 10^3/uL (0.0-0.2); BASO % 0.9 % (0.0-1.0); EOS # 0.3 10^3/uL (0.0-0.5); EOS % 2.6 % (0.0-3.0); HEMATOCRIT 45.8 % (36.0-47.0); LYMPH % 20.7 % (24.0-44.0); MEAN CORPUSCULAR HEMOGLOBIN 30.4 pg (27.0-33.0); MEAN CORPUSCULAR HGB CONC 32.8 g/dl (32.0-36.5); MEAN CORPUSCULAR VOLUME 92.9 fl (80.0-96.0); MONO # 1.1 10^3/uL (0.0-0.8); MONO % 11.3 % (2.0-8.0); NEUTROPHILS # 6.1 10^3/uL (1.5-8.5); NEUTROPHILS % 63.9 % (36.0-66.0); PLATELET COUNT, AUTOMATED 340 10^3/uL (150-450); RED BLOOD COUNT 4.93 10^6/uL (4.00-5.40); WHITE BLOOD COUNT 9.6 10^3/uL (4.0-10.0)
[2022-04-17 21:36] LABS: HEMOGLOBIN A1c 5.8 % (4.0-6.0)
[2022-04-17 22:57] LABS: THYROID STIMULATING HORMONE 1.912 uIU/ML (0.55-4.78); TOTAL 25(OH) VITAMIN D 19.8 NG/ML (20.0-100.0)
[2022-04-18 00:11] LABS: ALBUMIN 3.6 G/DL (3.2-5.2); ALKALINE PHOSPHATASE 104 U/L (46-116); ALT/SGPT 20 U/L (7.0-40); AST/SGOT 21 U/L (<34); BILIRUBIN,TOTAL 0.2 MG/DL (0.3-1.2); BLOOD UREA NITROGEN 14 MG/DL (9-23); CALCIUM LEVEL 9.1 MG/DL (8.5-10.1); CARBON DIOXIDE LEVEL 24 MMOL/L (20-31); CHLORIDE LEVEL 101 MMOL/L (98-107); CHOLESTEROL LEVEL 215 MG/DL (<200); CREATININE FOR GFR 0.87 MG/DL (0.55-1.30); GLOMERULAR FILTRATION RATE > 60.0 (>51); GLUCOSE, FASTING 119 MG/DL (60-100); HDL CHOLESTEROL 40.5 MG/DL (>40); LDL CHOLESTEROL 104.9 MG/DL (<100); NON-HDL-C 175 MG/DL; POTASSIUM SERUM 4.1 MMOL/L (3.5-5.1); SODIUM LEVEL 137 MMOL/L (136-145); TOTAL PROTEIN 7.3 G/DL (5.7-8.2); TRIGLYCERIDES LEVEL 348 MG/DL (<150)
== END ==
LOC: M LAB REF 16:51
PROVIDERS: ATTEND Nurse Practitioner Family
DX: E03.9 Hypothyroidism, unspecified (principal); Z13.228 Encounter for screening for other metabolic disorders

== ENCOUNTER → 2022-08-26 | Outpatient (CLI) | payer SELFPAY ==
[2022-08-26 18:10] LABS: CHOLESTEROL RISK RATIO 4.86 (<5); HDL CHOLESTEROL 43.2 MG/DL (>40); LDL CHOLESTEROL 121.2 MG/DL (<100); NON-HDL-C 166.8 MG/DL; THYROID STIMULATING HORMONE 1.34 uIU/ML (0.55-4.78)
== END ==
LOC: M RAD 12:42
PROVIDERS: ATTEND Nurse Practitioner Family
DX: E03.9 Hypothyroidism, unspecified (principal); E78.5 Hyperlipidemia, unspecified

== ENCOUNTER 2022-09-10 11:27 | Emergency (ER) | payer SELFPAY ==
[~2022-09-10] VITALS: Ht 154.9 cm; Wt 112.1 kg
[2022-09-10] MEDS ORDERED: VITA200032 PO (11:54)
[2022-09-10 12:33] LABS: BASO # 0.1 10^3/uL (0.0-0.2); BASO % 0.7 % (0.0-1.0); EOS # 0.1 10^3/uL (0.0-0.5); EOS % 0.8 % (0.0-3.0); HEMATOCRIT 46.8 % (36.0-47.0); HEMOGLOBIN 15.5 g/dl (12.0-15.5); LYMPH % 19.2 % (24.0-44.0); MEAN CORPUSCULAR HEMOGLOBIN 30.3 pg (27.0-33.0); MEAN CORPUSCULAR HGB CONC 33.1 g/dl (32.0-36.5); MEAN CORPUSCULAR VOLUME 91.6 fl (80.0-96.0); MONO # 1.3 10^3/uL (0.0-0.8); MONO % 12.1 % (2.0-8.0); NEUTROPHILS # 7.1 10^3/uL (1.5-8.5); NEUTROPHILS % 66.8 % (36.0-66.0); PLATELET COUNT, AUTOMATED 334 10^3/uL (150-450); RED BLOOD COUNT 5.11 10^6/uL (4.00-5.40); WHITE BLOOD COUNT 10.6 10^3/uL (4.0-10.0)
[2022-09-10] MEDS ORDERED: ISOVUE-370 76% 100ML VIAL As Ordered ONE (12:45)
[2022-09-10 13:00] LABS: LIPASE 19 U/L (12-53)
[2022-09-10 13:02] LABS: ALBUMIN 3.9 G/DL (3.2-5.2); ALKALINE PHOSPHATASE 97 U/L (46-116); ALT/SGPT 13 U/L (7.0-40); AST/SGOT 15 U/L (<34); BILIRUBIN,DIRECT < 0.1 MG/DL (<0.4); BILIRUBIN,TOTAL 0.3 MG/DL (0.3-1.2); BLOOD UREA NITROGEN 11 MG/DL (9-23); CALCIUM LEVEL 8.8 MG/DL (8.5-10.1); CARBON DIOXIDE LEVEL 29 MMOL/L (20-31); CHLORIDE LEVEL 104 MMOL/L (98-107); CREATININE FOR GFR 0.63 MG/DL (0.55-1.30); GLOMERULAR FILTRATION RATE > 60.0 (>51); GLUCOSE, FASTING 87 MG/DL (60-100); SODIUM LEVEL 138 MMOL/L (136-145); TOTAL PROTEIN 7.4 G/DL (5.7-8.2)
[2022-09-10 13:03] LABS: CK-MB VALUE MASS < 1.0 NG/ML (<3.6)
[2022-09-10 13:07] LABS: FREE T4 1.17 NG/DL (0.89-1.76); THYROID STIMULATING HORMONE 2.821 uIU/ML (0.55-4.78)
[2022-09-10 13:11] LABS: CPK CREATINE PHOSPHOKINASE 83 U/L (34-145)
[2022-09-10 13:33] LABS: CK-MB VALUE MASS 1.8 NG/ML (<3.6)
[2022-09-10] MEDS: NITROGLYCERIN 0.4MG SUBL TABLET SL PRN ×2 (14:03→14:24)
[2022-09-10 14:24] VITALS: BP 165/80
[2022-09-10 15:48] LABS: CK-MB VALUE MASS < 1.0 NG/ML (<3.6)
[2022-09-10 15:51] LABS: CPK CREATINE PHOSPHOKINASE 70 U/L (34-145); MB/CK RELATIVE INDEX 1.42 (< OR =4)
[2022-09-10] MEDS ORDERED: FUROSEMIDE 20MG/2ML VIAL IV ONE (16:15)
[2022-09-10] MEDS ORDERED: POTA-165 PO (16:18)
[2022-09-10] MEDS ORDERED: LASI20TA3 PO (16:18)
[2022-09-10] MEDS ORDERED: FUROSEMIDE 20 MG TAB PO ONE (16:40)
[2022-09-10 17:04] VITALS: BP 132/94; TEMP 97.5; O2SAT 99
== END 2022-09-10 17:05 | disposition home or self-care (01) ==
LOC: M ED 11:27
DX: R07.9 Chest pain, unspecified (principal); R22.43 Localized swelling, mass and lump, lower limb, bilateral; E11.9 Type 2 diabetes mellitus without complications; E03.9 Hypothyroidism, unspecified; F17.200 Nicotine dependence, unspecified, uncomplicated; Z88.0 Allergy status to penicillin; Z88.1 Allergy status to other antibiotic agents; Z88.5 Allergy status to narcotic agent; Z79.82 Long term (current) use of aspirin; Z79.899 Other long term (current) drug therapy
CPT/HCPCS: 36415; 71045; 71275; 80048; 80076; 82550; 82553; 83690; 84439; 84443; 84484; 85025; 93005; 93041; 93971; 94760; 99285; Q9967

== ENCOUNTER → 2023-05-18 | Outpatient (REF) | payer SELFPAY ==
[~2023-05-18] MED LIST changes: +LASI20TA3 PO; +POTA-165 PO; +VITA200032 PO
[2023-05-18 18:49] LABS: BASO # 0.1 10^3/uL (0.0-0.2); EOS # 0.1 10^3/uL (0.0-0.5); EOS % 1.4 % (0.0-3.0); HEMATOCRIT 45.3 % (36.0-47.0); HEMOGLOBIN 14.9 g/dl (12.0-15.5); LYMPH # 2.4 10^3/uL (1.5-5.0); LYMPH % 25.6 % (24.0-44.0); MEAN CORPUSCULAR HEMOGLOBIN 30.6 pg (27.0-33.0); MEAN CORPUSCULAR HGB CONC 32.9 g/dl (32.0-36.5); MONO # 1.3 10^3/uL (0.0-0.8); MONO % 13.9 % (2.0-8.0); NEUTROPHILS # 5.4 10^3/uL (1.5-8.5); NEUTROPHILS % 57.6 % (36.0-66.0); PLATELET COUNT, AUTOMATED 315 10^3/uL (150-450); RED BLOOD COUNT 4.87 10^6/uL (4.00-5.40); WHITE BLOOD COUNT 9.3 10^3/uL (4.0-10.0)
[2023-05-18 19:05] LABS: HEMOGLOBIN A1c 6.1 % (4.0-6.0)
[2023-05-18 19:13] LABS: CREATININE, URINE 73.6 MG/DL; CREATININE,RANDOM URINE 73.6 MG/DL; MALB URINE SIEMENS < 3.0 MG/L
[2023-05-18 19:17] LABS: ALBUMIN 3.8 G/DL (3.2-5.2); ALKALINE PHOSPHATASE 95 U/L (46-116); ALT/SGPT 22 U/L (7.0-40); AST/SGOT 21 U/L (<34); BILIRUBIN,TOTAL 0.3 MG/DL (0.3-1.2); BLOOD UREA NITROGEN 14 MG/DL (9-23); CALCIUM LEVEL 8.8 MG/DL (8.5-10.1); CARBON DIOXIDE LEVEL 28 MMOL/L (20-31); CHLORIDE LEVEL 101 MMOL/L (98-107); CHOLESTEROL LEVEL 205 MG/DL (<200); CHOLESTEROL RISK RATIO 4.85 (<5); CREATININE FOR GFR 0.81 MG/DL (0.55-1.30); GLOMERULAR FILTRATION RATE > 60.0 (>51); GLUCOSE, FASTING 78 MG/DL (60-100); HDL CHOLESTEROL 42.2 MG/DL (>40); LDL CHOLESTEROL 103.2 MG/DL (<100); MAGNESIUM LEVEL 1.8 MG/DL (1.8-2.4); NON-HDL-C 162.8 MG/DL; POTASSIUM SERUM 4.2 MMOL/L (3.5-5.1); SODIUM LEVEL 136 MMOL/L (136-145); THYROID STIMULATING HORMONE 2.292 uIU/ML (0.55-4.78); TOTAL PROTEIN 7.6 G/DL (5.7-8.2); TRIGLYCERIDES LEVEL 298 MG/DL (<150)
== END ==
LOC: M LAB REF 17:06
PROVIDERS: ATTEND Nurse Practitioner Family
DX: R03.0 Elevated blood-pressure reading, without diagnosis of hypertension (principal); E66.01 Morbid (severe) obesity due to excess calories; E55.9 Vitamin D deficiency, unspecified

== ENCOUNTER → 2023-12-01 | Outpatient (REF) | payer SELFPAY ==
[2023-12-01 14:29] LABS: CHOLESTEROL RISK RATIO 6.24 (<5); HDL CHOLESTEROL 39.1 MG/DL (>40); LDL CHOLESTEROL 150.7 MG/DL (<100); NON-HDL-C 204.9 MG/DL
[2023-12-01 15:23] LABS: HEMOGLOBIN A1c 6.3 % (4.0-6.0)
== END ==
LOC: M LAB REF 13:22
PROVIDERS: ATTEND Nurse Practitioner Family
DX: E78.5 Hyperlipidemia, unspecified (principal); R73.09 Other abnormal glucose

== ENCOUNTER → 2023-12-22 | Outpatient (CLI) | payer SELFPAY ==
[2023-12-22 20:25] LABS: BASO # 0.1 10^3/uL (0.0-0.2); BASO % 0.8 % (0.0-1.0); EOS # 0.2 10^3/uL (0.0-0.5); EOS % 1.4 % (0.0-3.0); HEMATOCRIT 48.4 % (36.0-47.0); HEMOGLOBIN 15.9 g/dl (12.0-15.5); LYMPH # 3.4 10^3/uL (1.5-5.0); LYMPH % 31.6 % (24.0-44.0); MEAN CORPUSCULAR HEMOGLOBIN 31.1 pg (27.0-33.0); MEAN CORPUSCULAR HGB CONC 32.9 g/dl (32.0-36.5); MEAN CORPUSCULAR VOLUME 94.7 fl (80.0-96.0); MONO # 1.2 10^3/uL (0.0-0.8); MONO % 11.5 % (2.0-8.0); NEUTROPHILS # 5.7 10^3/uL (1.5-8.5); PLATELET COUNT, AUTOMATED 330 10^3/uL (150-450); RED BLOOD COUNT 5.11 10^6/uL (4.00-5.40); WHITE BLOOD COUNT 10.6 10^3/uL (4.0-10.0)
[2023-12-22 20:33] LABS: ALBUMIN 3.8 G/DL (3.2-5.2); ALKALINE PHOSPHATASE 101 U/L (46-116); ALT/SGPT 20 U/L (7.0-40); AST/SGOT 15 U/L (<34); BILIRUBIN,TOTAL 0.3 MG/DL (0.3-1.2); BLOOD UREA NITROGEN 13 MG/DL (9-23); CALCIUM LEVEL 9.6 MG/DL (8.5-10.1); CARBON DIOXIDE LEVEL 27 MMOL/L (20-31); CHLORIDE LEVEL 101 MMOL/L (98-107); CREATININE FOR GFR 0.86 MG/DL (0.55-1.30); GLOMERULAR FILTRATION RATE > 60.0 (>51); GLUCOSE, FASTING 104 MG/DL (60-100); MAGNESIUM LEVEL 1.9 MG/DL (1.8-2.4); POTASSIUM SERUM 4.4 MMOL/L (3.5-5.1); SODIUM LEVEL 135 MMOL/L (136-145); TOTAL PROTEIN 7.9 G/DL (5.7-8.2)
[2023-12-22 20:39] LABS: ERYTHROCYTE SEDIMENTATION RATE > 130 mm/hr (0-30)
== END ==
LOC: M WUC 15:39
PROVIDERS: ATTEND Nurse Practitioner Family
DX: R22.32 Localized swelling, mass and lump, left upper limb (principal)

== ENCOUNTER 2024-04-22 15:34 | Emergency (ER) | payer SELFPAY ==
[~2024-04-22] VITALS: Ht 154.9 cm; Wt 127.0 kg
[2024-04-22] MEDS ORDERED: ACET-683 PO (15:47)
[2024-04-22] MEDS ORDERED: IBUP200T46 PO (15:47)
[2024-04-22 17:34] LABS: BASO # 0.1 10^3/uL (0.0-0.2); BASO % 0.8 % (0.0-1.0); EOS # 0.2 10^3/uL (0.0-0.5); EOS % 2.2 % (0.0-3.0); HEMATOCRIT 46.5 % (36.0-47.0); HEMOGLOBIN 15.4 g/dl (12.0-15.5); LYMPH # 2.3 10^3/uL (1.5-5.0); LYMPH % 26.2 % (24.0-44.0); MEAN CORPUSCULAR HEMOGLOBIN 30.8 pg (27.0-33.0); MEAN CORPUSCULAR HGB CONC 33.1 g/dl (32.0-36.5); MONO % 11.7 % (2.0-8.0); NEUTROPHILS # 5.1 10^3/uL (1.5-8.5); NEUTROPHILS % 58.5 % (36.0-66.0); PLATELET COUNT, AUTOMATED 286 10^3/uL (150-450); WHITE BLOOD COUNT 8.7 10^3/uL (4.0-10.0)
[2024-04-22 17:55] LABS: BLOOD UREA NITROGEN 16 MG/DL (9-23); CALCIUM LEVEL 9.1 MG/DL (8.5-10.1); CARBON DIOXIDE LEVEL 29 MMOL/L (20-31); CHLORIDE LEVEL 101 MMOL/L (98-107); CK-MB VALUE MASS < 1.0 NG/ML (<3.6); CPK CREATINE PHOSPHOKINASE 91 U/L (34-145); CREATININE FOR GFR 0.65 MG/DL (0.55-1.30); GLOMERULAR FILTRATION RATE > 60.0 (>51); GLUCOSE, FASTING 100 MG/DL (60-100); MB/CK RELATIVE INDEX 1.09 (< OR =4); POTASSIUM SERUM 4.6 MMOL/L (3.5-5.1); SODIUM LEVEL 138 MMOL/L (136-145)
[2024-04-22] MEDS: LIDOCAINE 5% (LIDODERM) PATCH TD ONE (20:09)
[2024-04-22 20:12] VITALS: BP 164/82; TEMP 97.7; O2SAT 94
== END 2024-04-22 20:15 | disposition home or self-care (01) ==
LOC: M ED 15:34
DX: M79.622 Pain in left upper arm (principal); I44.0 Atrioventricular block, first degree; E11.9 Type 2 diabetes mellitus without complications; I10 Essential (primary) hypertension; E03.9 Hypothyroidism, unspecified; F17.200 Nicotine dependence, unspecified, uncomplicated; Z88.0 Allergy status to penicillin; Z88.1 Allergy status to other antibiotic agents; Z88.5 Allergy status to narcotic agent; Z79.1 Long term (current) use of non-steroidal anti-inflammatories (NSAID); Z79.899 Other long term (current) drug therapy

== ENCOUNTER → 2024-05-23 | Outpatient (REF) | payer SELFPAY ==
[~2024-05-23] MED LIST changes: +ACET-683 PO; +IBUP200T46 PO
[2024-05-23 19:27] LABS: C REACTIVE PROTEIN QUANTITATIV 2.63 MG/DL (<1.0); CHOLESTEROL RISK RATIO 5.58 (<5); HDL CHOLESTEROL 40.8 MG/DL (>40); LDL CHOLESTEROL 122.6 MG/DL (<100); NON-HDL-C 187.2 MG/DL
[2024-05-23 19:35] LABS: THYROID STIMULATING HORMONE 6.592 uIU/ML (0.55-4.78)
[2024-05-26 14:42] LABS: ANA SCREEN, IFA POSITIVE (NEGATIVE); ANA TITER 1:40 titer (<1:40)
== END ==
LOC: M LAB REF 17:34
PROVIDERS: ATTEND Pediatrics
DX: E78.5 Hyperlipidemia, unspecified (principal); E03.9 Hypothyroidism, unspecified